=== PATIENT | female | born 1955 | race African-American/Black ===

== ENCOUNTER 2018-06-02 09:01 | Inpatient (IN) | payer OTHER ==
[2018-05-24 17:24] VITALS: BMI 35.2
[~2018-06-02 09:01] MED LIST: CEFAZOLIN 2 GM in DEXTROSE 5%-WATER - 50 ML IVPB ONE; CELECOXIB 200 MG CAPSULE PO ONE; ROPIVICAINE 0.2%/MORPH PF/KETOROLAC - 51ML DISP.SYRINGE IA ONE; TRANEXAMIC ACID 1000 MG/10 ML VIAL IVPUSH ONE
[2018-06-02] MEDS ORDERED: MIDAZOLAM HCL 2 MG/2 ML SINGLE DOSE VIAL ONE (10:17)
[2018-06-02] MEDS ORDERED: BUPIVACAINE LIPOSOME/PF (EXPAREL) 266 MG/20 ML VIAL ONE (10:17)
--- NOTE | 2018-06-02 10:22 | HP ---
History & Physical Update - History History: No Change - Physical Physical: No Change - Assessment Assessment: No Change - Plan Plan: No Change (no change since visit on 05/29/18)
[2018-06-02] MEDS ORDERED: ROCURONIUM BROMIDE 50 MG/5 ML VIAL ONE (10:59)
[2018-06-02] MEDS ORDERED: fentaNYL CITRATE 250 MCG/5 ML VIAL ONE (11:02)
[2018-06-02] MEDS ORDERED: VANCOMYCIN 1,000 MG VIAL (RESTRICTED TO ID ONLY) ONE (11:07)
[2018-06-02] MEDS ORDERED: DESFLURANE GAS 240 ML BOTTLE IH ONE (12:26)
[2018-06-02] MEDS ORDERED: HYDROmorphone HCL/PF 1 MG/ML AMP ONE ×2 (12:26→13:59)
[2018-06-02] MEDS ORDERED: MAGNESIUM HYDROX 2400MG/30ML ORAL SUSPENSION 30 ML CUP PO PRN (13:27)
[2018-06-02] MEDS ORDERED: ONDANSETRON 4 MG/2 ML VIAL IVPUSH PRN (13:27)
[2018-06-02] MEDS ORDERED: MAG HYDROX/AL HYDROX/SIMETH 30 ML UNIT-DOSE CUP PO PRN (13:27)
[2018-06-02] MEDS ORDERED: LACTATED RINGERS SOLUTION 1,000 ML IV SCH (13:30)
[2018-06-02] MEDS ORDERED: ALBUTEROL SO4 8 GM HFA INHALER IH PRN (13:32)
--- NOTE | 2018-06-02 13:59 | CONSULT ---
Consultation: REQUESTING PROVIDER: CONSULT REQUEST: We have been asked to medically evaluate this patient for ( specify). HISTORY OF PRESENT ILLNESS: REVIEW OF SYSTEMS: CONSTITUTIONAL: Absent: fever, chills, diaphoresis, generalized weakness, malaise, loss of appetite, weight change HEENT: Absent: rhinorrhea, nasal congestion, throat pain, throat swelling, difficulty swallowing, mouth swelling, ear pain, eye pain, visual changes CARDIOVASCULAR: Absent: chest pain, syncope, palpitations, irregular heart rate, lightheadedness , peripheral edema RESPIRATORY: Absent: cough, shortness of breath, dyspnea with exertion, orthopnea, wheezing, stridor, hemoptysis GASTROINTESTINAL: Absent: abdominal pain, abdominal distension, nausea, vomiting, diarrhea, constipation, melena, hematochezia GENITOURINARY: Absent: dysuria, frequency, urgency, hesitancy, hematuria, flank pain, genital pain MUSCULOSKELETAL: Absent: myalgia, arthralgia, joint swelling, back pain, neck pain SKIN: Absent: rash, itching, pallor HEMATOLOGIC/IMMUNOLOGIC: Absent: easy bleeding, easy bruising, lymphadenopathy, frequent infections ENDOCRINE: Absent: unexplained weight gain, unexplained weight loss, heat intolerance, cold intolerance NEUROLOGIC: Absent: headache, focal weakness or paresthesias, dizziness, unsteady gait, seizure, mental status changes, bladder or bowel incontinence PSYCHIATRIC: Absent: anxiety, depression, suicidal or homicidal ideation, hallucinations. PHYSICAL EXAMINATION Vital Signs - 24 hr 06/02/18 09:29 Temperature 98.6 F Pulse Rate 78 Respiratory 18 Rate Blood Pressure 119/82 GENERAL: Awake, alert, and fully oriented, in no acute distress. HEAD: Normal with no signs of trauma. EYES: Pupils equal, round and reactive to light, extraocular movements intact, sclera anicteric, conjunctiva clear. No lid lag. EARS, NOSE, THROAT: Ears normal, nares patent, oropharynx clear without exudates. Moist mucous membranes. NECK: Normal range of motion, supple without lymphadenopathy, JVD, or masses. LUNGS: Breath sounds equal, clear to auscultation bilaterally. No wheezes, and no crackles. No accessory muscle use. HEART: Regular rate and rhythm, normal S1 and S2 without murmur, rub or gallop. ABDOMEN: Soft, nontender, not distended, normoactive bowel sounds, no guarding, no rebound, no masses. No hepatomegaly or splenomegaly. MUSCULOSKELETAL: Normal range of motion at all joints. No bony deformities or tenderness. No CVA tenderness. UPPER EXTREMITIES: 2+ pulses, warm, well-perfused. No cyanosis. No clubbing. Cap refill <2 seconds. No peripheral edema. LOWER EXTREMITIES: 2+ pulses, warm, well-perfused. No calf tenderness. No peripheral edema. NEUROLOGICAL: Cranial nerves II-XII intact. Normal speech. Normal gait. PSYCHIATRIC: Cooperative. Good eye contact. Appropriate mood and affect. SKIN: Warm, dry, normal turgor, no rashes or lesions noted. Active Medications Generic Name Dose Route Start Last Admin Trade Name Freq PRN Reason Stop Dose Admin Al Hydroxide/Mg Hydroxide 30 ml 06/02/18 13:27 Mylanta Oral Suspension - PO Q4H PRN DYSPEPSIA Albuterol Sulfate puff 06/02/18 13:32 Ventolin Hfa Inhaler - IH ASDIR PRN WHEEZING Amlodipine Besylate 5 mg 06/03/18 10:00 Norvasc - PO DAILY [facility] Aspirin 81 mg 06/02/18 22:00 Ecotrin - PO BID KELLIE Cyclobenzaprine HCl 10 mg 06/03/18 10:00 Flexeril - PO DAILY KELLIE Cefazolin Sodium 2 gm/ 50 mls @ 200 mls/hr 06/02/18 19:30 Dextrose IVPB 06/03/18 02:14 Q8H-IV KELLIE Lactated Ringer's 1,000 mls @ 100 mls/hr 06/02/18 13:30 Lactated Ringers Solution IV 06/03/18 06:00 ASDIR KELLIE Magnesium Hydroxide 30 ml 06/02/18 13:27 Milk Of Magnesia - PO PRN PRN CONSTIPATION Multivitamins/Minerals/Vitamin C 1 tab 06/03/18 10:00 Tab-A-Vit - PO DAILY [facility] Non-Formulary Medication 1 each 06/03/18 10:00 Bictegrav/Emtricit/Tenofov Ala PO DAILY [facility] Non-Formulary Medication 20 mg 06/02/18 22:00 Pravastatin Sodium [Pravastatin Sodium] PO HS KELLIE Ondansetron HCl 4 mg 06/02/18 13:27 Zofran Injection IVPUSH Q6H PRN NAUSEA Pantoprazole Sodium 40 mg 06/03/18 10:00 Protonix - PO DAILY KELLIE Senna/Docusate Sodium tablet 06/02/18 22:00 Pericolace - PO BID [facility] ASSESSMENT/PLAN: Dispo: We will continue to follow the patient. Thank you for this consultative opportunity.
--- NOTE | 2018-06-02 14:41 | PN ---
Progress Note (short form) - Note Progress Note: S/P Revision Left TKA POD #0 - Pain control per anesthesia -DVT PPx: -Chemical: ASA 81 mg po BID x 6 weeks -Mechanical: SAVANAH's, SCD's -Incentive Spirometry. -PT/OT/Rehab, OOB. -TTWB Left LE in brace -f/u drain output -f/u am labs. -Care per medical hospitalist team. -Discharge planning: f/u [facility] [place] office station air traffic control specialist for appointment: -Will follow. Ken Nicole MD (Orthopaedic Surgery)
[2018-06-02] MEDS ORDERED: oxyCODONE HCL 5 MG TABLET PO PRN ×2 (14:43)
--- NOTE | 2018-06-02 16:17 | OP ---
Operative Note - Note: Operative Date: 06/02/18 Pre-Operative Diagnosis: failed left TKA Operation: Revision of left TKA Post-Operative Diagnosis: Same as Pre-op Surgeon: Ken Nicole Pharmacy Assistant: Enedina Paz Anesthesiologist/FILM MOUNTER: Nathaniel Whaley Anesthesia: General, Spinal Specimens Removed: old hardware, synovium Estimated Blood Loss (mls): 500 Fluid Volume Replaced (mls): 1,800 Operative Report Dictated: Yes
--- NOTE | 2018-06-02 16:18 | SURG ---
Surgery Wrecker Driver Note Wrecker Driver: Enedina Paz PA-C Date of Service: 06/02/18 Diagnosis: Failed left TKA Procedure: Revision Left TKA I was present for the operative procedure. For further detail, please refer to operative report. Visit type - Case Type Case Type: Scheduled - Emergency Emergency Visit: No - New patient This patient is new to me today: Yes Date on this admission: 06/02/18
[2018-06-02] MEDS ORDERED: ONDANSETRON 4 MG/2 ML VIAL ONE (16:27)
[2018-06-02] MEDS ORDERED: HYDROmorphone *PCA* 10MG/50ML DISP.SYRIN PCA SCH (17:00)
[2018-06-02] MEDS ORDERED: CEFAZOLIN 2 GM/D5W 2 GM/50 ML ML IVPB SCH (19:30)
[2018-06-02] MEDS ORDERED: PATIENT'S OWN MEDICATION (NON-FORMULARY) (Pravastatin Sodium [Pravastatin Sodium] 20 MG) PO SCH (22:00)
[2018-06-02] MEDS ORDERED: oxyCODONE HCL 10 MG SUSTAINED ACTING TABLET PO SCH (22:00)
[2018-06-02] MEDS: SENNOSIDES/DOCUSATE COMBO (SENNA PLUS) TABLET (UD) PO SCH (22:00)
[2018-06-02] MEDS: ASPIRIN COATED 81 MG TABLET.EC PO SCH (22:00)
[2018-06-02] MEDS: ATORVASTATIN CA 10 MG TABLET (FP) PO SCH (22:00)
[2018-06-02] MEDS: CEFAZOLIN 2 GM/D5W 2 GM/50 ML ML IVPB SCH (23:27)
[2018-06-03] MEDS ORDERED: VANCOMYCIN 1 GM in D5W (PRE-DOCKED) 1,000 MG/250 ML IVPB ONE
--- NOTE | 2018-06-03 08:31 | CONSULT ---
Consultation: REQUESTING PROVIDER: Dr. Ken Nicole CONSULT REQUEST: We have been asked to medically evaluate this patient post- operatively. HISTORY OF PRESENT ILLNESS: 62 year-old female with a PMH significant for HTN, asthma (current smoker), HIV , s/p revision total left knee on 06/02/18. REVIEW OF SYSTEMS: CONSTITUTIONAL: Absent: fever, chills, diaphoresis, generalized weakness, malaise, loss of appetite, weight change HEENT: Absent: rhinorrhea, nasal congestion, throat pain, throat swelling, difficulty swallowing, mouth swelling, ear pain, eye pain, visual changes CARDIOVASCULAR: Absent: chest pain, syncope, palpitations, irregular heart rate, lightheadedness , peripheral edema RESPIRATORY: Absent: cough, shortness of breath, dyspnea with exertion, orthopnea, wheezing, stridor, hemoptysis GASTROINTESTINAL: Absent: abdominal pain, abdominal distension, nausea, vomiting, diarrhea, constipation, melena, hematochezia GENITOURINARY: Absent: dysuria, frequency, urgency, hesitancy, hematuria, flank pain, genital pain MUSCULOSKELETAL: Absent: myalgia, arthralgia, joint swelling, back pain, neck pain SKIN: Absent: rash, itching, pallor HEMATOLOGIC/IMMUNOLOGIC: Absent: easy bleeding, easy bruising, lymphadenopathy, frequent infections ENDOCRINE: Absent: unexplained weight gain, unexplained weight loss, heat intolerance, cold intolerance NEUROLOGIC: Absent: headache, focal weakness or paresthesias, dizziness, unsteady gait, seizure, mental status changes, bladder or bowel incontinence PSYCHIATRIC: Absent: anxiety, depression, suicidal or homicidal ideation, hallucinations. PHYSICAL EXAMINATION Vital Signs - 24 hr 06/02/18 06/02/18 06/02/18 09:29 16:08 16:13 Temperature 98.6 F 98 F 98 F Pulse Rate 78 80 79 Respiratory 18 16 16 Rate Blood Pressure 119/82 124/83 129/87 O2 Sat by Pulse 98 98 Oximetry (%) 06/02/18 06/02/18 06/02/18 16:18 16:23 17:16 Temperature 98 F 98 F Pulse Rate 80 76 75 Respiratory 16 16 16 Rate Blood Pressure 124/83 126/81 132/94 O2 Sat by Pulse 99 99 Oximetry (%) 06/02/18 06/02/18 06/03/18 21:27 23:50 01:00 Temperature 98.9 F 98.9 F Pulse Rate 97 H 102 H Respiratory 18 18 Rate Blood Pressure 100/59 L 113/79 O2 Sat by Pulse 98 98 Oximetry (%) 06/03/18 06:00 Temperature 98.8 F Pulse Rate 95 H Respiratory 18 Rate Blood Pressure 136/69 O2 Sat by Pulse 97 Oximetry (%) GENERAL: Awake, alert, and fully oriented, in no acute distress. DENTIST ATTENDANT pump. HEAD: Normal with no signs of trauma. EYES: Pupils equal, round and reactive to light, extraocular movements intact, sclera anicteric, conjunctiva clear. No lid lag. EARS, NOSE, THROAT: Ears normal, nares patent, oropharynx clear without exudates. Moist mucous membranes. NECK: Normal range of motion, supple without lymphadenopathy, JVD, or masses. LUNGS: Breath sounds equal, clear to auscultation bilaterally. No wheezes, and no crackles. No accessory muscle use. HEART: Regular rate and rhythm, normal S1 and S2 without murmur, rub or gallop. ABDOMEN: Soft, nontender, not distended, normoactive bowel sounds, no guarding, no rebound, no masses. No hepatomegaly or splenomegaly. MUSCULOSKELETAL: Normal range of motion at all joints. No bony deformities or tenderness. No CVA tenderness. UPPER EXTREMITIES: 2+ pulses, warm, well-perfused. No cyanosis. No clubbing. Cap refill <2 seconds. No peripheral edema. LEFT LOWER EXTREMITY: leg immobilizer, SCDs; surgical wound not visualized; no drains NEUROLOGICAL: Cranial nerves II-XII intact. Normal speech. Gait not observed. ASSESSMENT/PLAN 62 year-old female with a PMH significant for HTN, asthma (current smoker), HIV , s/p revision total left knee on 06/02/18. --POD #1 --perioperative antibiotics complete --pain management per surgery; dilaudid DENTIST ATTENDANT; IV ketorolac PRN; cyclobenzeprine --ASA 81mg BID --protonix --bowel regimen --incentive spirometry --no drains, no abraham Hypertension --BP stable --continue amlodipine Asthma --stable --albuterol INH PRN HIV --continue home medication FEN Fluids: PO intake adequate Electrolytes: replete as indicated Nutrition: regular diet DVT prophylaxis: OOB, ambulation, SCDs, ASA 81mg BID Physical therapy Dispo: We will continue to follow the patient. Thank you for this consultative opportunity. Visit type - Emergency Visit Emergency Visit: No - New Patient This patient is new to me today: Yes Date on this admission: 06/03/18 - Critical Care Critical Care patient: No
[2018-06-03 08:59] LABS: HEMOGLOBIN 10.2 GM/dl (10.7-15.3); MCH 32.7 pg (25.7-33.7); MCHC 31.9 g/dl (32.0-36.0); MEAN CELL VOLUME 102.4 fl (80-96); MEAN PLT VOLUME 7.6 fl (7.5-11.1); PLATELET COUNT 202 K/MM3 (134-434); RBC 3.13 M/mm3 (3.60-5.2); RDW 13.6 % (11.6-15.6); WHITE BLOOD COUNT 8.3 K/mm3 (4.0-10.8)
--- NOTE | 2018-06-03 09:26 | OP ---
DATE OF OPERATION: 06/02/2018 SURGEON: Ken Nicole MD AIRLINE CAPTAIN: Enedina Paz PA-C PREOPERATIVE DIAGNOSIS: Loosening of previous revision total knee arthroplasty with stemmed cement tibia and rotating hinge (Nilam). POSTOPERATIVE DIAGNOSIS: Loosening of previous revision total knee arthroplasty with stemmed cement tibia and rotating hinge (Nilam). OPERATION PERFORMED: 1. Explant of femoral and tibial components. 2. Extensive debridement of soft tissue and bone. 3. Capsulectomy of the entire capsule as well as posterior capsule. 4. Revision left total knee arthroplasty with Camilla rotating hinge prosthesis. 5. Lateral release. 6. Complex wound closure 60 cm. ANESTHESIA: Failed spinal anesthesia, general anesthesia provided. ANTIBIOTICS GIVEN: Kefzol 2 g, vancomycin 1 g preoperatively. Vancomycin 1 g given at the time of release of the tourniquet at 120 minutes, and the tourniquet was then reapplied for another approximately 120 minutes, and repeat dose of antibiotics given at that time. OPERATION IN DETAIL: The patient was correctly identified, brought into the operating room. The left lower extremity was prepped and draped in the routine manner with Betadine scrub solution, wiped with alcohol, and DuraPrep was applied. Through the old original incision, the incision was extended 2 cm proximally and 2 cm distally. The dissection was taken first along the tibia, along the tibial tubercle, and then medially around the retinacular tissues. The quadriceps tendon was split longitudinally and a curved incision made around the patella. This enabled an impossible capsulization of the patella. It was re-opted for a tibial tubercle instead of a rectus snip or rectus turn-down type procedure. The tibial tubercle was made about 4 or 5 cm below the tibial tubercle. The bone bed was lifted, and the entire patella capsulized laterally giving easy access to the knee. With simple flexion of the knee, the entire femoral component was delivered into the wound. It was completely loose. The tibial component appeared to be solidly fixed. The tibial component was removed by placing a small oscillating saw in the space between the tibial baseplate and the bone bed, and a Gigli saw was utilized for the back portion to break the bonds. The tibial component was then removed with no difficulty. Once this had been performed, the cement on the tibial bone bed was all removed using intramedullary reaming. Reaming was to size 17, and the outrigger jigs were applied to this. We resected approximately 2 mm of bone off the tibia. This was based off the intramedullary device of the Camilla jig system. The femur required a lot of creative manipulation. We opted for a size small SM femoral component. The stem measured 155 x 23 mm, and the measurement of the seating of the femur to line the joint surface up with the meniscal scar, we utilized 1 cm judgement of space between the distal femoral bone bed and the actual superior aspect of the femoral component. The trialing of the components was exactly the above mentioned size. The tibia measured a size 2 and the stem measured size 17 x 155. A 1-cm block was placed on the undersurface of the tibial tray, this to approximate the actual joint line. A size 16 polyethylene gave, without the rotating hinge pin, an excellent degree of stability. It must be noted that all tissues of the femur were resected. We utilized a set of reverse curettes and using long pituitary rongeurs as well as osteotomes, the entire fibrous tissue of the endosteal canal was freed, removed, sent to the lab for histopathology and culture. Reaming was to size 23. The final definitive component measured small SM for [place] with 2 distal 1-cm build-up blocks, and the stem was seated with a solid press-fit fixation that was a scratch-width line to line fixation. The tibial component was a 17x 2 tray, a 110 length stem utilized. The cone to seat inside the tibia measured size B. All components were tested first before they were inserted. Once we were happy with the positioning, the entire soft tissue bed was lavaged repeatedly. A full debridement of the bone bed, soft tissue that was muscle and subcutaneous tissue and fat, and skin enabled a much improved situation with the entire synovium and capsule of the knee was resected because of [id number]-fqvvomork tissue due to particulation/appropriate debris that resulted in fibrosis and abnormality of these tissues. A lateral release was performed in order to improve patellar tracking. This measured about 1-1/2 inches. This was done from distal to proximal. Cementing was performed where the block was cemented directly onto the undersurface of the tibial tray. Once this had cured, the cementing of both components as outlined above was performed. Solid fixation achieved. It must be noted that prior to cementing, we drilled multiple holes into the bone bed both in the femur and tibia to facilitate cementing improved fixation method. Patellar tracking was normal. Range of movement of the knee was 0 to 120 degrees. Complete stability in the coronal and sagittal plane encountered. The tibial tubercle was then repositioned and held with 3 small fragment, that is 3.5 mm screws. These were lag effect screws. We used cancellous screws for better fixation into the posterior cortical bone. After thorough lavage and repeated lavages, the fascia and subcutaneous tissues were all closed in 2 separate layers that is muscle 1 Vicryl, subcutaneous tissue 1 and 2-0 Vicryl, and skin chau. No drains inserted. At 1 hour 20 minutes of the operation, the tourniquet was released. The hemorrhage was controlled well. This was washed out appropriately. No complications. The measurement of the size 16 polyethylene tray with a rotating hinge component was then inserted to finalize the case. This had been inserted prior to closure. A knee immobilizer was applied. OVERALL COMMENT: A complex case with massive osteolysis and bone loss involving the femur, less so the tibia. The outcome was excellent with the postoperative x-rays revealing solid fixation of the tibial tubercle osteotomy and normal anatomical alignment of the knee in both the coronal as well as sagittal plane. Kinematics of the knee will depend on the rotating hinge. The range of movement was 0 to 110 degrees. MD ERIN Hubbard/[id number]
[2018-06-03] MEDS ORDERED: PATIENT'S OWN MEDICATION (NON-FORMULARY) (Bictegrav/Emtricit/Tenofov Ala 1 EACH) PO SCH (10:00)
[2018-06-03] MEDS: CEFAZOLIN 2 GM/D5W 2 GM/50 ML ML IVPB SCH (10:38)
[2018-06-03] MEDS: SENNOSIDES/DOCUSATE COMBO (SENNA PLUS) TABLET (UD) PO SCH ×2 (10:39→21:56)
[2018-06-03] MEDS: CYCLOBENZAPRINE HCL 10 MG TABLET (FP) PO SCH (10:40)
[2018-06-03] MEDS: ASPIRIN COATED 81 MG TABLET.EC PO SCH ×2 (10:41→21:56)
[2018-06-03] MEDS: amLODIPine BESYLATE 5 MG TABLET (FP) PO SCH (10:41)
[2018-06-03] MEDS: PANTOPRAZOLE 40 MG TABLET (FP) PO SCH (10:41)
[2018-06-03] MEDS: MULTIVITAMINS (DAILY MVI) TABLET (FP) PO SCH (10:42)
[2018-06-03 10:50] LABS: ANION GAP 8 MMOL/L (8-16); BLOOD UREA NITROGEN 19 mg/dl (7-18); CALCIUM 8.8 mg/dl (8.5-10); CHLORIDE 109 mmol/L (98-107); CO2 27 mmol/L (21-32); GLUCOSE,RANDOM 113 mg/dl (74-106); POTASSIUM 4.7 mmol/L (3.5-5.1); SODIUM 144 mmol/L (136-145)
[2018-06-03] MEDS: KETOROLAC TROMETHAMINE 30 MG/1 ML VIAL IVPUSH PRN ×2 (15:55→16:53)
--- NOTE | 2018-06-03 18:20 | PN ---
Progress Note (short form) - Note Progress Note: POD#1 Doing well Sitting in the chair Did walk in the room and hallway Voice Normal Neck No swelling Wound Bandage serosang staining Neuro Hands symptomatically better All rest at baseline PLAN Mobilize Soft food Pain mx D/C planning home for Tuesday See in the office Keep wound dry
[2018-06-03] MEDS ORDERED: BISACODYL 10 MG SUPP.RECT RC PRN (18:47)
--- NOTE | 2018-06-03 18:51 | PN ---
Progress Note (short form) - Note Progress Note: POD#1 C/O mild incisional pain responds to Dilaudid and Toradol Vitals All stable Wound Bandage dry Limb No calf or subsartorian tenderness No neurovascular deficits ASSESS Doing well PLAN Pain MX PT mobilize in knee immobilizer Will arrange a hinged [place] for weekly graded increased ROM DVT prophylaxis Aspirin 81mg BID D/C planning ? rehab ? home Continue weight reduction
[2018-06-03] MEDS: POLYETHYLENE GLYCOL 3350 119 GM BTL PO SCH (21:56)
[2018-06-03] MEDS: ATORVASTATIN CA 10 MG TABLET (FP) PO SCH (21:56)
[2018-06-04 09:06] LABS: BASO % 0.4 % (0-2.0); EOS % 0.9 % (0-4.5); HEMATOCRIT 27.5 % (32.4-45.2); HEMOGLOBIN 8.9 GM/dl (10.7-15.3); LYMPH % 23.9 % (8-40); MCH 32.6 pg (25.7-33.7); MCHC 32.3 g/dl (32.0-36.0); MEAN CELL VOLUME 100.8 fl (80-96); MEAN PLT VOLUME 7.9 fl (7.5-11.1); MONO % 7.2 % (3.8-10.2); NEUT % 67.6 % (42.8-82.8); PLATELET COUNT 165 K/MM3 (134-434); RBC 2.73 M/mm3 (3.60-5.2); RDW 13.5 % (11.6-15.6); WHITE BLOOD COUNT 9.3 K/mm3 (4.0-10.8)
[2018-06-04 09:25] LABS: ALBUMIN 2.5 g/dl (3.4-5.0); ALK PHOS 85 U/L (45-117); ANION GAP 8 MMOL/L (8-16); BILIRUBIN,TOTAL 0.7 mg/dl (0.2-1); BLOOD UREA NITROGEN 19 mg/dl (7-18); CALCIUM 7.8 mg/dl (8.5-10); CHLORIDE 101 mmol/L (98-107); CO2 25 mmol/L (21-32); CREATININE 0.9 mg/dl (0.55-1.3); GLUCOSE,RANDOM 89 mg/dl (74-106); MAGNESIUM 1.9 mg/dL (1.8-2.4); POTASSIUM 4.2 mmol/L (3.5-5.1); SGOT/AST 28 U/L (15-37); SGPT/ALT 8 U/L (13-61); SODIUM 134 mmol/L (136-145); TOT PROT 5.8 g/dl (6.4-8.2)
--- NOTE | 2018-06-04 09:38 | PN ---
Physical Exam: SUBJECTIVE: Patient seen and examined,pt still c/o Left knee pain, reports no relief with REAL ESTATE ATTORNEY,+ nausea, denies cp, sob, palpitations,abdominal pain, vomiting , diarrhea or urinary symptoms. OBJECTIVE: Vital Signs Period Temp Pulse Resp BP Sys/Johnson Pulse Ox Last 24 Hr 97.8 F-100.6 F 67-109 16-19 97-130/52-76 93-97 GENERAL: The patient is awake, alert, and fully oriented, in no acute distress. HEAD: Normal with no signs of trauma. EYES: PERRL, extraocular movements intact, sclera anicteric, conjunctiva clear. No ptosis. ENT: Ears normal, nares patent, oropharynx clear without exudates, moist mucous membranes. NECK: Trachea midline, full range of motion, supple. LUNGS: Breath sounds equal, clear to auscultation bilaterally, no wheezes, no crackles, no accessory muscle use. HEART: Regular rate and rhythm, S1, S2 without murmur, rub or gallop. ABDOMEN: Soft, nontender, nondistended, normoactive bowel sounds, no guarding, no rebound, no hepatosplenomegaly, no masses. EXTREMITIES: 2+ pulses, warm, well-perfused, no edema, Left knee dsg and immobilizer in place NEUROLOGICAL: Cranial nerves II through XII grossly intact. Normal speech, gait not observed. PSYCH: Normal mood, normal affect. SKIN: Warm, dry, normal turgor, no rashes or lesions noted Laboratory Results - last 24 hr 06/02/18 06/03/18 06/03/18 17:00 07:40 07:40 WBC 8.0 8.3 RBC 3.13 L Hgb 10.2 L Hct 32.0 L MCV 102.4 H MCH 32.7 MCHC 31.9 L RDW 13.6 Plt Count 202 MPV 7.6 Absolute Neuts (auto) Absolute Lymphs (auto) 0.5 L Neutrophils % Lymphocytes % Monocytes % Eosinophils % Basophils % Lymphocytes 6 Nucleated RBCs TNP Sodium 144 Potassium 4.7 Chloride 109 H Carbon Dioxide 27 Anion Gap 8 BUN 19 H Creatinine 1.0 Creat Clearance w eGFR 56.37 Random Glucose 113 H Calcium 8.8 Magnesium Total Bilirubin AST ALT Alkaline Phosphatase Total Protein Albumin Absolute CD3 Count 298 L % CD3+ Lymphocytes 59.6 Absolute CD4 Chase 131 L % CD4+ Lymphocyte 26.1 L CD4/CD8 Ratio 0.81 L % CD8+ Lymphocyte 32.3 Absolute CD8 Count 162 06/04/18 06/04/18 06:00 06:30 WBC 9.3 RBC 2.73 L Hgb 8.9 L Hct 27.5 L MCV 100.8 H MCH 32.6 MCHC 32.3 RDW 13.5 Plt Count 165 MPV 7.9 Absolute Neuts (auto) 6.3 Absolute Lymphs (auto) Neutrophils % 67.6 Lymphocytes % 23.9 Monocytes % 7.2 Eosinophils % 0.9 Basophils % 0.4 Lymphocytes Nucleated RBCs Sodium 134 L Potassium 4.2 Chloride 101 Carbon Dioxide 25 Anion Gap 8 BUN 19 H Creatinine 0.9 Creat Clearance w eGFR > 60 Random Glucose 89 Calcium 7.8 L Magnesium 1.9 Total Bilirubin 0.7 AST 28 ALT 8 L Alkaline Phosphatase 85 Total Protein 5.8 L Albumin 2.5 L Absolute CD3 Count % CD3+ Lymphocytes Absolute CD4 Chase % CD4+ Lymphocyte CD4/CD8 Ratio % CD8+ Lymphocyte Absolute CD8 Count Active Medications Generic Name Dose Route Start Last Admin Trade Name Freq PRN Reason Stop Dose Admin Al Hydroxide/Mg Hydroxide 30 ml 06/02/18 13:27 06/02/18 23:50 Mylanta Oral Suspension - PO 30 ml Q4H PRN Administration DYSPEPSIA Albuterol Sulfate 2 puff 06/02/18 13:32 Ventolin Hfa Inhaler - IH Q6H PRN WHEEZING Amlodipine Besylate 5 mg 06/03/18 10:00 06/03/18 10:41 Norvasc - PO 5 mg DAILY KELLIE Administration Aspirin 81 mg 06/02/18 22:00 06/03/18 21:56 Ecotrin - PO 81 mg BID KELLIE Administration Atorvastatin Calcium 10 mg 06/02/18 22:00 06/03/18 21:56 Lipitor - PO 10 mg HS KELLIE Administration Bisacodyl 10 mg 06/03/18 18:47 Dulcolax Suppository - RC DAILY PRN CONSTIPATION Cyclobenzaprine HCl 10 mg 06/03/18 10:00 06/03/18 10:40 Flexeril - PO 10 mg DAILY KELLIE Administration Hydromorphone HCl 10 mg 06/02/18 17:00 06/03/18 16:46 Dilaudid Cotton Cleaner - REAL ESTATE ATTORNEY 06/05/18 16:59 10 mg REAL ESTATE ATTORNEY KELLIE Administration Protocol Multivitamins/Minerals/Vitamin C 1 tab 06/03/18 10:00 06/03/18 10:42 Tab-A-Vit - PO 1 tab DAILY KELLIE Administration Non-Formulary Medication 1 each 06/03/18 10:00 Bictegrav/Emtricit/Tenofov Ala PO DAILY KELLIE Ondansetron HCl 4 mg 06/02/18 13:27 Zofran Injection IVPUSH Q6H PRN NAUSEA Pantoprazole Sodium 40 mg 06/03/18 10:00 06/03/18 10:41 Protonix - PO 40 mg DAILY KELLIE Administration Polyethylene Glycol 17 gm 06/03/18 22:00 06/03/18 21:56 Miralax (For Daily Use) - PO 17 gm BID KELLIE Administration Senna/Docusate Sodium 2 tablet 06/02/18 22:00 06/03/18 21:56 Pericolace - PO 2 tablet BID KELLIE Administration Left knee X'ray - reviewed, ASSESSMENT/PLAN: 62 year-old female with a PMH significant for HTN, asthma (current smoker), HIV , s/p revision total left knee on 06/02/18. -POD #2 - management per sx -rec a hinged [place] for weekly graded increased ROM -DVT prophylaxis Aspirin 81mg BID - reports Dilaudid REAL ESTATE ATTORNEY not relieving the pain - will switch to home dose Oxycontin, will cont on Flexeril -bowel regimen - encouraged to use incentive spirometry - PT - low grade fever over night, no leukocytosis - s/p post-op abx * Anemia - likely acute blood loss anemia from sx - will check Fe studies - will start on Fe pills -stool OB *Hypertension -BP stable -continue amlodipine *Asthma-stable -albuterol INH PRN *HIV -continue home medication * Mild hyponatremia - NA 144>134 - will encourage PO fluid and and f/u on Equal Employment Opportunity Officer *FEN Fluids: PO intake adequate Electrolytes: replete as indicated Nutrition: regular diet DVT prophylaxis: OOB, ambulation, SCDs, ASA 81mg BID * GI Prophylaxis- PPI Dispo: We will continue to follow the patient. Thank you for this consultative opportunity. Visit type - Emergency Visit Emergency Visit: Yes ED Registration Date: 06/02/18 Care time: The patient presented to the Emergency Department on the above date and was hospitalized for further evaluation of their emergent condition. - New Patient This patient is new to me today: Yes Date on this admission: 06/11/18 - Critical Care Critical Care patient: No - Discharge Referral Referred to [facility] Med [facility] No
[2018-06-04] MEDS: ASPIRIN COATED 81 MG TABLET.EC PO SCH ×2 (09:40→21:28)
[2018-06-04] MEDS: CYCLOBENZAPRINE HCL 10 MG TABLET (FP) PO SCH (09:41)
[2018-06-04] MEDS: POLYETHYLENE GLYCOL 3350 119 GM BTL PO SCH ×2 (09:42→21:29)
[2018-06-04] MEDS: amLODIPine BESYLATE 5 MG TABLET (FP) PO SCH (09:42)
[2018-06-04] MEDS: SENNOSIDES/DOCUSATE COMBO (SENNA PLUS) TABLET (UD) PO SCH ×2 (09:42→21:28)
[2018-06-04] MEDS: MULTIVITAMINS (DAILY MVI) TABLET (FP) PO SCH (09:42)
[2018-06-04] MEDS: PANTOPRAZOLE 40 MG TABLET (FP) PO SCH (09:42)
[2018-06-04] MEDS ORDERED: oxyCODONE HCL 5 MG TABLET PO SCH (10:00)
[2018-06-04] MEDS: FERROUS SO4 325 MG TABLET (FP) PO SCH ×2 (13:05→21:28)
[2018-06-04] MEDS: oxyCODONE HCL 5 MG TABLET PO SCH ×4 (15:30→21:29)
[2018-06-04] MEDS ORDERED: ACETAMINOPHEN 500 MG TABLET (FP) PO ONE (20:39)
[2018-06-04] MEDS: ATORVASTATIN CA 10 MG TABLET (FP) PO SCH (21:28)
[2018-06-04] MEDS ORDERED: ACETAMINOPHEN 650 MG/20.3 ML ORAL SOLUTION (CUPS) PO PRN (21:50)
[2018-06-04] MEDS ORDERED: MELATONIN 5 MG TABLETS PO ONE (21:52)
[2018-06-05] MEDS: oxyCODONE HCL 5 MG TABLET PO SCH ×4 (04:11→22:20)
--- NOTE | 2018-06-05 07:19 | PN ---
Progress Note (short form) - Note Progress Note: POD #3 s/p Revision of left TKA Patient's RN states patient c/o a lot of left knee pain not controlled by current medications. 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 Also, per RN, patient brought her own narcotics from home and was administering in conjunction with what's been ordered. Patient not really participating in PT sessions. She is wearing her knee brace as instructed. Denies n/v/f/c, CP, palpitations, SOB or GRACE. Last Vital Signs Temp Pulse Resp BP Pulse Ox 98.5 F 85 20 100/53 L 99 03/11/19 06:00 03/11/19 06:00 /02/13 06:00 // 06:00 // 06:30 PE Gen: NAD LE: RLE unremarkable. LLE dressing c/d/i. Knee immobilizer in place. Ice pack. Plantar/Dorsi flex/extension 4/5. +DP bilat. Warm. No calf tenderness. No neurovascular deficits Problem List - Problems (1) Left knee DJD Assessment/Plan: POD #3 s/p Revision of Left TKA Pain Management DVT PPX via ASA 81mg PO BID x6 weeks & TEDs/SCDs bilat Incentive Spirometer OOB with PT WBAT LLE Hinged Ady for weekly graded increased ROM Patient wishes to go to REHAB Service Captain aware f/u AM LABS Dr. Nicole made aware and agrees with above plan Code(s): M17.12 - UNILATERAL PRIMARY OSTEOARTHRITIS, LEFT KNEE
[2018-06-05 08:06] LABS: SERUM IRON SATURATION 15 % (15-55); TOTAL IRON BINDING CAPACITY 230 ug/dL (250-450); UIBC 196 ug/dL (118-369)
[2018-06-05 08:43] LABS: BASO % 0.1 % (0-2.0); EOS % 1.8 % (0-4.5); HEMATOCRIT 26.4 % (32.4-45.2); HEMOGLOBIN 8.5 GM/dl (10.7-15.3); MCH 32.4 pg (25.7-33.7); MEAN CELL VOLUME 101.2 fl (80-96); MEAN PLT VOLUME 7.8 fl (7.5-11.1); MONO % 6.6 % (3.8-10.2); NEUT % 71.5 % (42.8-82.8); PLATELET COUNT 168 K/MM3 (134-434); RBC 2.61 M/mm3 (3.60-5.2); RDW 13.3 % (11.6-15.6); WHITE BLOOD COUNT 8.1 K/mm3 (4.0-10.8)
[2018-06-05 08:52] LABS: ANION GAP 6 MMOL/L (8-16); BLOOD UREA NITROGEN 15 mg/dl (7-18); CHLORIDE 101 mmol/L (98-107); CO2 28 mmol/L (21-32); CREATININE 0.9 mg/dl (0.55-1.3); GLUCOSE,RANDOM 105 mg/dl (74-106); POTASSIUM 5.2 mmol/L (3.5-5.1); SODIUM 135 mmol/L (136-145)
[2018-06-05] MEDS: ASPIRIN COATED 81 MG TABLET.EC PO SCH ×2 (09:28→22:20)
[2018-06-05] MEDS: FERROUS SO4 325 MG TABLET (FP) PO SCH ×2 (09:28→22:20)
[2018-06-05] MEDS: SENNOSIDES/DOCUSATE COMBO (SENNA PLUS) TABLET (UD) PO SCH (09:29)
[2018-06-05] MEDS: MULTIVITAMINS (DAILY MVI) TABLET (FP) PO SCH (09:29)
[2018-06-05] MEDS: CYCLOBENZAPRINE HCL 10 MG TABLET (FP) PO SCH (09:29)
[2018-06-05] MEDS: PANTOPRAZOLE 40 MG TABLET (FP) PO SCH (09:29)
[2018-06-05] MEDS: amLODIPine BESYLATE 5 MG TABLET (FP) PO SCH (09:29)
[2018-06-05] MEDS: POLYETHYLENE GLYCOL 3350 119 GM BTL PO SCH (09:29)
[2018-06-05 09:34] LABS: HBsAG SCREEN NEGATIVE
--- NOTE | 2018-06-05 10:06 | PN ---
Physical Exam: SUBJECTIVE: Patient seen and examined. States she is ready to go to rehab. OBJECTIVE: Vital Signs Period Temp Pulse Resp BP Sys/Johnson Pulse Ox Last 24 Hr 98.1 F-98.9 F 79-100 16-20 89-130/53-78 95-99 GENERAL: Awake, alert, and fully oriented, in no acute distress. LUNGS: Breath sounds equal, clear to auscultation bilaterally. No wheezes, and no crackles. No accessory muscle use. HEART: Regular rate and rhythm, normal S1 and S2 ABDOMEN: Soft, nontender, not distended, normoactive bowel sounds UPPER EXTREMITIES: 2+ pulses, warm, well-perfused. No cyanosis. No clubbing. Cap refill <2 seconds. No peripheral edema. LEFT LOWER EXTREMITY: leg immobilizer, SCDs; surgical wound not visualized; no drains NEUROLOGICAL: Cranial nerves II-XII intact. Normal speech. Gait not observed. Laboratory Results - last 24 hr 06/03/18 06/04/18 06/04/18 07:40 06:30 06:30 WBC RBC Hgb Hct MCV MCH MCHC RDW Plt Count MPV Absolute Neuts (auto) Neutrophils % Lymphocytes % Monocytes % Eosinophils % Basophils % Iron 34 TIBC 230 L Iron Saturation 15 Ferritin 106.4 Vitamin B12 303 Serum Folate 10 Hep Bs Antigen Negative 06/05/18 07:10 WBC 8.1 RBC 2.61 L Hgb 8.5 L Hct 26.4 L MCV 101.2 H MCH 32.4 MCHC 32.0 RDW 13.3 Plt Count 168 MPV 7.8 Absolute Neuts (auto) 5.9 Neutrophils % 71.5 Lymphocytes % 20.0 Monocytes % 6.6 Eosinophils % 1.8 Basophils % 0.1 Iron TIBC Iron Saturation Ferritin Vitamin B12 Serum Folate Hep Bs Antigen Active Medications Generic Name Dose Route Start Last Admin Trade Name Freq PRN Reason Stop Dose Admin Acetaminophen 650 mg 06/04/18 21:50 Tylenol Oral Solution - PO Q6H PRN PAIN LEVEL 6-10 Al Hydroxide/Mg Hydroxide 30 ml 06/02/18 13:27 06/02/18 23:50 Mylanta Oral Suspension - PO 30 ml Q4H PRN Administration DYSPEPSIA Albuterol Sulfate 2 puff 06/02/18 13:32 Ventolin Hfa Inhaler - IH Q6H PRN WHEEZING Amlodipine Besylate 5 mg 06/03/18 10:00 06/05/18 09:29 Norvasc - PO 5 mg DAILY KELLIE Administration Aspirin 81 mg 06/02/18 22:00 06/05/18 09:28 Ecotrin - PO 81 mg BID KELLIE Administration Atorvastatin Calcium 10 mg 06/02/18 22:00 06/04/18 21:28 Lipitor - PO 10 mg HS KELLIE Administration Bisacodyl 10 mg 06/03/18 18:47 Dulcolax Suppository - RC DAILY PRN CONSTIPATION Cyclobenzaprine HCl 10 mg 06/03/18 10:00 06/05/18 09:29 Flexeril - PO 10 mg DAILY KELLIE Administration Ferrous Sulfate 325 mg 06/04/18 10:00 06/05/18 09:28 Feosol - PO 325 mg BID KELLIE Administration Multivitamins/Minerals/Vitamin C 1 tab 06/03/18 10:00 06/05/18 09:29 Tab-A-Vit - PO 1 tab DAILY KELLIE Administration Non-Formulary Medication 1 each 06/03/18 10:00 Bictegrav/Emtricit/Tenofov Ala PO DAILY [facility] Ondansetron HCl 4 mg 06/02/18 13:27 Zofran Injection IVPUSH Q6H PRN NAUSEA Oxycodone HCl 30 mg 06/04/18 10:30 06/05/18 09:30 Roxicodone - PO 30 mg Q6H KELLIE Administration Pantoprazole Sodium 40 mg 06/03/18 10:00 06/05/18 09:29 Protonix - PO 40 mg DAILY KELLIE Administration Polyethylene Glycol 17 gm 06/03/18 22:00 06/05/18 09:29 Miralax (For Daily Use) - PO 17 gm BID KELLIE Administration Senna/Docusate Sodium 2 tablet 06/02/18 22:00 06/05/18 09:29 Pericolace - PO 2 tablet BID [facility] Administration ASSESSMENT/PLAN: 62 year-old female with a PMH significant for HTN, asthma (current smoker), HIV , s/p revision total left knee on 06/02/18. --POD #3 --perioperative antibiotics complete --pain management has been a challenge; patient observed by nursing staff taking unprescribed valium which she brought into the hospital; recovered from her belongings were flexeril 10mg x 25 tabs and valium 10mg x 10 tabs; dilaudid RACE RELATIONS ADVISER is off; on PO oxycodone and flexeril --ASA 81mg BID --protonix --bowel regimen: has not had BM and K mildly elevated; give dose relistor --incentive spirometry --no drains, no abraham Hypertension --BP stable --continue amlodipine Asthma --stable --albuterol INH PRN HIV --continue home medication FEN Fluids: PO intake adequate Electrolytes: replete as indicated Nutrition: regular diet DVT prophylaxis: OOB, ambulation, SCDs, ASA 81mg BID x 6 weeks Physical therapy Dispo: We will continue to follow the patient. Thank you for this consultative opportunity. Visit type - Emergency Visit Emergency Visit: No - New Patient This patient is new to me today: No - Critical Care Critical Care patient: No
[2018-06-05] MEDS: Methylnaltrexone Bromide 12 MG/0.6 ML KIT SQ SCH (11:53)
[2018-06-05] MEDS: ATORVASTATIN CA 10 MG TABLET (FP) PO SCH (22:20)
[2018-06-06] MEDS: oxyCODONE HCL 5 MG TABLET PO SCH ×4 (04:30→22:26)
--- NOTE | 2018-06-06 07:12 | DS ---
Physical Exam: SUBJECTIVE: Patient seen and examined. Still c/o Left Knee pain but improved compared when I saw patient. Per RN she is actually getting OOB and ambulating with PT. She is wearing her knee brace as instructed. Denies n/v/f/c , CP, palpitations, SOB or GRACE. OBJECTIVE: Last Vital Signs Temp Pulse Resp BP Pulse Ox 99.0 F 76 18 98/63 100 06/06/18 06:00 06/06/18 06:00 06/06/18 06:00 06/06/18 06:00 06/06/18 06:00 PE Gen: NAD LE: RLE unremarkable. LLE dressing c/d/i. Knee immobilizer in place. Ice pack. Plantar/Dorsi flex/extension 4/5. +DP bilat. Warm. No calf tenderness. No neurovascular deficits LABS CBC,CMP WBC 8.1 K/mm3 (4.0-10.8) 06/05/18 07:10 RBC 2.61 M/mm3 (3.60-5.2) L 06/05/18 07:10 Hgb 8.5 GM/dl (10.7-15.3) L 06/05/18 07:10 Hct 26.4 % (32.4-45.2) L 06/05/18 07:10 MCV 101.2 fl (80-96) H 06/05/18 07:10 MCH 32.4 pg (25.7-33.7) 06/05/18 07:10 MCHC 32.0 g/dl (32.0-36.0) 06/05/18 07:10 RDW 13.3 % (11.6-15.6) 06/05/18 07:10 Plt Count 168 K/MM3 (134-434) 06/05/18 07:10 MPV 7.8 fl (7.5-11.1) 06/05/18 07:10 Absolute Neuts (auto) 5.9 K/mm3 06/05/18 07:10 Absolute Lymphs (auto) 0.5 x10E3/uL (0.7-3.1) L 06/02/18 17:00 Neutrophils % 71.5 % (42.8-82.8) 06/05/18 07:10 Lymphocytes % 20.0 % (8-40) 06/05/18 07:10 Monocytes % 6.6 % (3.8-10.2) 06/05/18 07:10 Eosinophils % 1.8 % (0-4.5) 06/05/18 07:10 Basophils % 0.1 % (0-2.0) 06/05/18 07:10 Lymphocytes 6 % (Not Estab.) 06/02/18 17:00 Nucleated RBCs TNP 06/02/18 17:00 Sodium 135 mmol/L (136-145) L 06/05/18 07:10 Potassium 5.2 mmol/L (3.5-5.1) H 06/05/18 07:10 Chloride 101 mmol/L (98-107) 06/05/18 07:10 Carbon Dioxide 28 mmol/L (21-32) 06/05/18 07:10 Anion Gap 6 MMOL/L (8-16) L 06/05/18 07:10 BUN 15 mg/dl (7-18) 06/05/18 07:10 Creatinine 0.9 mg/dl (0.55-1.3) 06/05/18 07:10 Creat Clearance w eGFR > 60 (>60) 06/05/18 07:10 Random Glucose 105 mg/dl (74-106) 06/05/18 07:10 Calcium 8.0 mg/dl (8.5-10) L 06/05/18 07:10 Magnesium 1.9 mg/dL (1.8-2.4) 06/04/18 06:00 Iron 34 ug/dL (27-139) 06/04/18 06:30 TIBC 230 ug/dL (250-450) L 06/04/18 06:30 Iron Saturation 15 % (15-55) 06/04/18 06:30 Ferritin 106.4 ng/ml (8-388) 06/04/18 06:30 Total Bilirubin 0.7 mg/dl (0.2-1) 06/04/18 06:00 AST 28 U/L (15-37) 06/04/18 06:00 ALT 8 U/L (13-61) L 06/04/18 06:00 Alkaline Phosphatase 85 U/L (45-117) 06/04/18 06:00 Total Protein 5.8 g/dl (6.4-8.2) L 06/04/18 06:00 Albumin 2.5 g/dl (3.4-5.0) L 06/04/18 06:00 Vitamin B12 303 pg/ml (193-986) 06/04/18 06:30 Serum Folate 10 ng/mL (3.1-17.5) 06/04/18 06:30 HOSPITAL COURSE: Date of Admission:06/02/18 Date of Discharge: 06/06/18 62 yo female was admitted to the Med-Surg Unit after an elective repair of their LEFT knee DJD. Now, POD #4 s/p Left Total Knee Arthroplasty. Pain managed via narcotic and non-narcotic oral and IV approach. Patient was very reluctant to ambulate with PT for the first few days but finally started to move POD #3. An xray was obtained and confirmed hardware placement at LEFT KNEE, no fractures or dislocations. Genevieve-operative IV ABX were administered. DVT prophylaxis was achieved with SCDs and early ambulation. The patient ambulated with Physical Therapy and recommend REHAB upon discharge. Narcotic scripts and or muscle relaxants were checked with [place] TELEVISION CABINET FINISHER prior to esrcibe. The pateint apolonia cont with DVT PPX via ASA 81mg PO BID x6 weeks. The discharge instructions and an oral pain management plan were reviewed with the patient. All questions answered. Above plan discussed with Dr. Nicole and agreed. Minutes to complete discharge: 35 Visit type - Case Type Case Type: Scheduled - New patient This patient is new to me today: Yes Date on this admission: 06/06/18
[2018-06-06] MEDS ORDERED: PT OWN MED DRAWER 7, Y5N ONE (09:05)
--- NOTE | 2018-06-06 09:44 | DS ---
"Physical Exam: SUBJECTIVE: Patient seen and examined OBJECTIVE: Vital Signs Period Temp Pulse Resp BP Sys/Johnson Pulse Ox Last 24 Hr 98.2 F-99.2 F 76-97 18-19 96-115/57-69 96-100 PHYSICAL EXAM GENERAL: The patient is awake, alert, and fully oriented, in no acute distress. HEAD: Normal with no signs of trauma. EYES: PERRL, extraocular movements intact, sclera anicteric, conjunctiva clear. ENT: Ears normal, nares patent, oropharynx clear without exudates, moist mucous membranes. NECK: Trachea midline, full range of motion, supple. LUNGS: Breath sounds equal, clear to auscultation bilaterally, no wheezes, no crackles, no accessory muscle use. HEART: Regular rate and rhythm, S1, S2 without murmur, rub or gallop. ABDOMEN: Soft, nontender, nondistended, normoactive bowel sounds, no guarding, no rebound, no hepatosplenomegaly, no masses. EXTREMITIES: 2+ pulses, warm, well-perfused, no edema. NEUROLOGICAL: Cranial nerves II through XII grossly intact. Normal speech, gait not observed. PSYCH: Normal mood, normal affect. SKIN: Warm, dry, normal turgor, no rashes or lesions noted. LABS Laboratory Results - last 24 hr 06/05/18 06/05/18 07:10 07:54 Sodium 135 L Potassium 5.2 H Chloride 101 Carbon Dioxide 28 Anion Gap 6 L BUN 15 Creatinine 0.9 Creat Clearance w eGFR > 60 Random Glucose 105 Calcium 8.0 L Hep C Ab Diagnostic 0.1 HOSPITAL COURSE: Date of Admission:06/02/18 Date of Discharge: 06/06/18 Minutes to complete discharge: 35 Discharge Summary Reason For Visit: REVISION OF LEFT TOTAL KNEE Current Active Problems Left knee DJD (Acute) Condition: Stable - Instructions Diet, Activity, Other Instructions: Dr. Nicole Discharge Instructions for Knee Replacement Post Operative Instructions Physical activity Physical Therapist will come to your home for the first 5 days. You will be set up with outpatient PT at your first post-operative visit. Use assistive devices for ambulation at all times. Weight bearing as tolerated on your surgical side. Do not put pillow under knee. May put pillow under heel. Wound care Leave your surgical dressing in place. Do not change the dressing until seen by your surgeon in the office. No baths or showers. Do not submerge your incision. Do not apply any ointments or lotions to your incision. Please call the office if your dressing is soiled/dirty or is falling off. Apply Graduated Compression Stockings (TEDS) to both lower extremities - remove daily for hygiene ONLY. Diet There are no dietary restrictions. Eat healthy, high-fiber foods. Drink 6 to 8 glasses of liquid each day. This will assist in keeping your bowels are regular. Pain management Any pain prescription medication ordered should be taken as prescribed for moderate to severe pain. Do not take additional Tylenol while taking Percocet. Take Aspirin 81 mg two times a day for a total of 6 weeks to prevent blood clots. Call Dr. Nicole for any of the following: Severe pain not relieved by medication Fever of 101 or higher Excessive bleeding or drainage on dressing Inability to urinate If you experience chest pain or shortness of breath, please seek emergency care immediately. Please call the office at to confirm your post-op appointment for the week following surgery. [place] Prescription Monitoring Program report was requested by: Enedina Kidd | Reference #: [id number] Others' Prescriptions Patient Name: Linda Sawyer Date: 1955 Address: [facility] [place] [address] [address] [place] [address] Sex: Female Rx Dispensed Drug Quantity Days Supply Prescriber Name 05/27/2018 diazepam 10 mg tablet 30 30 Ken Nicole MS, MD 05/09/2018 oxycodone hcl 30 mg tablet 120 30 Ken Nicole MS, MD Disposition: RESIDENTIAL FACILITY - Home Medications Comprehensive Discharge Medication List: Ambulatory Orders Amlodipine Besylate 5 mg PO DAILY 03/31/18 Bictegrav/Emtricit/Tenofov Ala [Biktarvy 50-200-25 mg Tablet] 1 each PO DAILY Cyclobenzaprine HCl 10 mg PO DAILY 03/31/18 Oxycodone HCl 30 mg PO Q6H 03/31/18 Pravastatin Sodium 20 mg PO HS 03/31/18 Zolpidem Tartrate [Ambien] 10 mg PO HS 03/31/18 Albuterol Sulfate [Proair Hfa] 8.5 gm IH ASDIR PRN 06/02/18 Aspirin Coated [Ecotrin -] 81 mg PO BID #90 tablet.ec 06/06/18 This patient is new to me today: No Emergency Visit: No Critical Care patient: No"
[2018-06-06] MEDS: PANTOPRAZOLE 40 MG TABLET (FP) PO SCH (09:47)
[2018-06-06] MEDS: MULTIVITAMINS (DAILY MVI) TABLET (FP) PO SCH (09:47)
[2018-06-06] MEDS: FERROUS SO4 325 MG TABLET (FP) PO SCH ×2 (09:47→21:01)
[2018-06-06] MEDS: ASPIRIN COATED 81 MG TABLET.EC PO SCH ×2 (09:48→21:01)
[2018-06-06] MEDS: CYCLOBENZAPRINE HCL 10 MG TABLET (FP) PO SCH (09:48)
[2018-06-06] MEDS: amLODIPine BESYLATE 5 MG TABLET (FP) PO SCH (09:48)
[2018-06-06] MEDS: Methylnaltrexone Bromide 12 MG/0.6 ML KIT SQ SCH (09:48)
[2018-06-06] MEDS: ATORVASTATIN CA 10 MG TABLET (FP) PO SCH (21:01)
[2018-06-07] MEDS: oxyCODONE HCL 5 MG TABLET PO SCH ×3 (04:36→15:57)
[2018-06-07] MEDS ORDERED: PT OWN MED DRAWER 7, Y5N ONE (09:24)
[2018-06-07] MEDS: FERROUS SO4 325 MG TABLET (FP) PO SCH (09:33)
[2018-06-07] MEDS: CYCLOBENZAPRINE HCL 10 MG TABLET (FP) PO SCH (09:33)
[2018-06-07] MEDS: MULTIVITAMINS (DAILY MVI) TABLET (FP) PO SCH (09:34)
[2018-06-07] MEDS: ASPIRIN COATED 81 MG TABLET.EC PO SCH (09:34)
[2018-06-07] MEDS: PANTOPRAZOLE 40 MG TABLET (FP) PO SCH (09:34)
[2018-06-07] MEDS: Methylnaltrexone Bromide 12 MG/0.6 ML KIT SQ SCH (09:37)
[2018-06-07] MEDS: amLODIPine BESYLATE 5 MG TABLET (FP) PO SCH (09:37)
[2018-06-07] MEDS ORDERED: SODIUM CHLORIDE 500 ML IV STA (10:32)
--- NOTE | 2018-06-07 16:16 | PATH ---
Surgical Pathology Report Patient Name: HENRY EDOUARD Med. Rec. #: [id number] /Age/Gender: 1955 (Age: 62) / F Account: [id number] Location: [facility] MED-SURG Taken: 06/02/2018 Received: 06/05/2018 Reported: 06/07/2018 Physicians: Ken Nicole M.D. Specimen(s) Received A: SYNOVIUM LEFT KNEE B: FEMORAL MEDULLARY CONTENTS LEFT KNEE C: LEFT KNEE EXPLANTS Clinical History Loosening of osteolysis Final Diagnosis A. KNEE, LEFT, SYNOVIUM, REVISION OF TOTAL KNEE REPLACEMENT: FIBROSYNOVIAL TISSUE WITH MARKED HISTIOCYTIC AND GIANT CELL INFILTRATE FOCALLY CONTAINING BROWN-BLACK REFRACTILE DEBRIS, SCATTERED GRANULAR POLARIZABLE MATERIAL IMBEDED IN DENSE FIBROSIS, AND FOCI OF NECROSIS CONSISTENT WITH CLINICAL IMPRESSION OF OSTEOLYSIS. B. KNEE, LEFT, FEMORAL MEDULLARY CONTENTS, REVISION OF TOTAL KNEE REPLACEMENT: FIBROSYNOVIAL TISSUE WITH MARKED HISTIOCYTIC AND GIANT CELL INFILTRATE FOCALLY CONTAINING BROWN-BLACK REFRACTILE DEBRIS, SCATTERED GRANULAR POLARIZABLE MATERIAL IMBEDED IN DENSE FIBROSIS, AND FOCI OF NECROSIS CONSISTENT WITH CLINICAL IMPRESSION OF OSTEOLYSIS. C. KNEE EXPLANTS, LEFT, REVISION OF TOTAL KNEE REPLACEMENT: SURGICAL HARDWARE (KNEE PROSTHESIS). MACROSCOPIC DIAGNOSIS. Electronically Signed Lila Urban M.D. Gross Description A. Received in formalin labeled "synovium left knee," is a 10.0 x 8.0 x 3.0 cm aggregate of multiple lucia, irregular portions of synovial tissue. Aeronautical Engineering Technologist sections are submitted in one cassette. B. Received in formalin labeled "femoral medullary contents left knee," is a 9.0 x 7.0 x 1.8 cm aggregate of lucia fibrous tissue fragments. A product support sales representative portion is submitted in one cassette. C. Received fresh labeled "left knee explants", is a 7.0 x 4.0 x 1.8 cm white, plastic foreign body. Also received within the same container are 2 meyers metallic foreign bodies measuring 18.0 and 25.0 cm in greatest dimension, consistent with portions of a knee explant. No soft tissue is present. No sections are submitted, gross only. /06/06/2018 saudi06/06/2018
[2018-06-07 18:33] VITALS: BP 120/65; PULSE 102; TEMP 99
== END 2018-06-07 18:45 | DRG 467 ==
LOC: FM/S 09:01
PROVIDERS: ADMIT Orthopaedic Surgery Orthopaedic Surgery of the Spine; ATTEND Orthopaedic Surgery Orthopaedic Surgery of the Spine
PROC: 0SRD0J9 Replacement of Left Knee Joint with Synthetic Substitute, Cemented, Open Approach (ICD-10-PCS; 2018-06-02)
PROC: 0SPD0JZ Removal of Synthetic Substitute from Left Knee Joint, Open Approach (ICD-10-PCS; principal; 2018-06-02 11:38)
DX: T84.033A Mechanical loosening of internal left knee prosthetic joint, initial encounter (principal); D62 Acute posthemorrhagic anemia; E87.1 Hypo-osmolality and hyponatremia; Z21 Asymptomatic human immunodeficiency virus [HIV] infection status; J45.909 Unspecified asthma, uncomplicated; I10 Essential (primary) hypertension; F17.210 Nicotine dependence, cigarettes, uncomplicated; M17.12 Unilateral primary osteoarthritis, left knee; Y83.8 Other surgical procedures as the cause of abnormal reaction of the patient, or of later complication, without mention of misadventure at the time of the procedure; Y92.89 Other specified places as the place of occurrence of the external cause
CPT/HCPCS: 36415; 73560-TC-LT-FY; 80048; 80053; 82607; 82728; 82746; 83540; 83550; 83735; 85025; 85027; 86359; 86360; 86803; 87340; 87389; 87522; 87536; 88300-TC; 88304-TC; 88311-TC; 94760; 97116-GP; 97162-GP

== ENCOUNTER 2018-07-29 21:36 | Emergency (ER) | payer OTHER ==
[2018-07-29 21:50] VITALS: BP 163/114; PULSE 94; TEMP 98.4; BMI 34.4
[2018-07-29] MEDS ORDERED: oxyCODONE HCL 5 MG TABLET PO ONE (21:57)
[2018-07-29] MEDS ORDERED: oxyCODONE HCL 5 MG TABLET ONE (22:03)
== END 2018-07-29 22:27 | disposition home or self-care (01) ==
LOC: FER 21:36
DX: M25.562 Pain in left knee (principal); G89.29 Other chronic pain
CPT/HCPCS: 99282-25

== ENCOUNTER 2018-10-25 10:54 | Inpatient (IN) | payer OTHER ==
[~2018-10-25 10:54] MED LIST changes: +CEFAZOLIN 1 GM/D5W 1 GM/50 ML BAG IVPB ONE; -CEFAZOLIN 2 GM in DEXTROSE 5%-WATER - 50 ML IVPB ONE; -CELECOXIB 200 MG CAPSULE PO ONE; -ROPIVICAINE 0.2%/MORPH PF/KETOROLAC - 51ML DISP.SYRINGE IA ONE; -TRANEXAMIC ACID 1000 MG/10 ML VIAL IVPUSH ONE
[2018-10-25 11:44] VITALS: BMI 34.7
[2018-10-25] MEDS ORDERED: VANCOMYCIN 1,000 MG in DEXTROSE 5%-WATER - 250 ML IVPB ONE (12:00)
[2018-10-25] MEDS ORDERED: TRANEXAMIC ACID 1000 MG/10 ML VIAL IVPUSH ONE (12:00)
[2018-10-25] MEDS ORDERED: GABAPENTIN 300 MG CAPSULE (FP) PO ONE (12:00)
[2018-10-25] MEDS ORDERED: MIDAZOLAM HCL 2 MG/2 ML SINGLE DOSE VIAL ONE (12:45)
[2018-10-25] MEDS ORDERED: BUPIVACAINE LIPOSOME/PF (EXPAREL) 266 MG/20 ML VIAL ONE (12:45)
[2018-10-25] MEDS ORDERED: SODIUM CHLORIDE 0.9% P/F 10 ML VIAL IJ ONE (12:45)
[2018-10-25] MEDS ORDERED: VANCOMYCIN 1,000 MG VIAL (RESTRICTED TO ID ONLY) ONE (13:15)
[2018-10-25] MEDS ORDERED: BUPIVACAINE HCL/PF 0.5% (5MG/ML) 10 ML VIAL ONE (13:35)
[2018-10-25] MEDS ORDERED: PROPOFOL 20 ML ONE (13:55)
[2018-10-25] MEDS ORDERED: ePHEDrine SULFATE 50 MG/1 ML AMPULE ONE ×2 (14:05→14:11)
[2018-10-25] MEDS ORDERED: ONDANSETRON 4 MG/2 ML VIAL IVPUSH PRN ×2 (16:13→17:09)
[2018-10-25] MEDS ORDERED: oxyCODONE HCL 5 MG TABLET PO PRN ×2 (16:13)
[2018-10-25] MEDS ORDERED: LACTATED RINGERS SOLUTION 1,000 ML IV SCH ×2 (16:15→17:15)
[2018-10-25] MEDS ORDERED: ceFAZolin SODIUM 1 GM VIAL ONE (16:18)
[2018-10-25] MEDS ORDERED: MAG HYDROX/AL HYDROX/SIMETH 30 ML UNIT-DOSE CUP PO PRN (17:09)
[2018-10-25] MEDS ORDERED: MAGNESIUM HYDROX 2400MG/30ML ORAL SUSPENSION 30 ML CUP PO PRN (17:09)
[2018-10-25] MEDS ORDERED: ALBUTEROL SO4 8 GM HFA INHALER IH PRN ×2 (17:19→18:39)
[2018-10-25] MEDS ORDERED: ACETAMINOPHEN 325 MG TABLET (FP) ONE (17:57)
[2018-10-25] MEDS: ACETAMINOPHEN 325 MG TABLET (FP) PO SCH ×2 (18:00→22:14)
--- NOTE | 2018-10-25 21:03 | HP ---
Admitting History and Physical - Admission Chief Complaint: left knee pain. denies chest pain, palpitations, nausea, vomiting, diarrhea History Source: Patient Limitations to Obtaining History: No Limitations - Past Medical History Cardiovascular: Yes: HTN Pulmonary: Yes: Asthma, COPD ...: No - Smoking History Smoking history: Current every day smoker Have you smoked in the past 12 months: Yes Aproximately how many cigarettes per day: 5 - Alcohol/Substance Use Hx Alcohol Use: No Home Medications - Allergies Allergies/Adverse Reactions: Allergies Allergy/AdvReac Type Severity Reaction Status Date / Time morphine AdvReac Severe Nausea Verified 10/25/18 11:34 - Home Medications Home Medications: Ambulatory Orders Amlodipine Besylate 5 mg PO DAILY 03/31/18 Bictegrav/Emtricit/Tenofov Ala [Biktarvy 50-200-25 mg Tablet] 1 each PO DAILY Cyclobenzaprine HCl 10 mg PO DAILY 03/31/18 Oxycodone HCl 30 mg PO Q6H 03/31/18 Zolpidem Tartrate [Ambien] 10 mg PO HS 03/31/18 Albuterol Sulfate [Proair Hfa] 8.5 gm IH ASDIR PRN 06/02/18 Aspirin Coated [Ecotrin -] 81 mg PO BID #90 tablet.ec 06/06/18 Acetaminophen [Tylenol -] 1,000 mg PO BID PRN 10/18/18 Simvastatin 10 mg PO HS 10/18/18 Family Disease History - Family Disease History Family History: Unremarkable Review of Systems - Review of Systems Constitutional: reports: Weakness Eyes: reports: No Symptoms HENT: reports: No Symptoms Neck: reports: No Symptoms Cardiovascular: reports: No Symptoms Respiratory: reports: No Symptoms Gastrointestinal: reports: No Symptoms Genitourinary: reports: No Symptoms Musculoskeletal: reports: Joint Pain Integumentary: reports: No Symptoms Neurological: reports: No Symptoms Endocrine: reports: No Symptoms Hematology/Lymphatic: reports: No Symptoms Psychiatric: reports: Anxiety Pain Intensity: 8 Physical Examination Vital Signs: Vital Signs Temperature 97.8 F 10/25/18 19:22 Pulse Rate 95 H 10/25/18 19:22 Respiratory Rate 10/25/18 19:22 Blood Pressure 150/90 10/25/18 19:22 O2 Sat by Pulse Oximetry (%) 100 07/31/19 19:22 Constitutional: Yes: Well Nourished, Anxious Eyes: Yes: WNL HENT: Yes: WNL Neck: Yes: WNL Cardiovascular: Yes: WNL Respiratory: Yes: WNL Gastrointestinal: Yes: WNL Renal/: Yes: WNL Musculoskeletal: Yes: Joint Stiffness Extremities: Yes: WNL Edema: No Peripheral Pulses WNL: Yes Integumentary: Yes: WNL Wound/Incision: Yes: Clean/Dry, Well Approximated, Dressing Dry and Intact Neurological: Yes: WNL ...Motor Strength: WNL Psychiatric: Yes: WNL Assessment/Plan 62 yo lady S/P revision of left knee. cont pain management. incentive spirometry. stool softeners started to prevent opioid induced constipation. -HTN: on amlodipine -CAD: on aspirin, lipitor. -chronic COPD: cont bronchodilators. -PT/OT/OOB as tolerated -ID: given Ancef periopertaively. -GI, DVT prophylaxis. -oral diet -will f/u in AM -hopefully will DC on Tuesday.
--- NOTE | 2018-10-25 21:16 | OP ---
DATE OF OPERATION: 10/25/2018 SURGEON: Ken Nicole MD HIDE COOKING OPERATOR: Spencer Nicole MD; AGNIESZKA Chavarria PREOPERATIVE DIAGNOSIS: Loosened femoral component, left revision total knee arthroplasty, due to periprosthetic fracture, distal femur. POSTOPERATIVE DIAGNOSIS: Loosened femoral component, left revision total knee arthroplasty, due to periprosthetic fracture, distal femur. OPERATION PERFORMED: Revision left total knee replacement with Camilla endoprosthesis, distal femur. ANESTHESIA: Spinal anesthesia with conscious sedation and peripheral nerve block. ANTIBIOTICS GIVEN: Kefzol 2 g, vancomycin 1 g preop; Kefzol 1 g given at the end of the procedure. TOURNIQUET TIME: 1 hour 40 minutes. DRAINAGE: 1/8-inch Hemovac x1. OPERATION DETAILS: Patient correctly identified, brought to the operating room. Left lower extremity was prepped and draped in the routine manner with Betadine scrub solution, wiped off with alcohol, DuraPrep applied. Timeout was called. Imaging was available for intraoperative evaluation. The skin was opened. The subcutaneous tissue opened to the level of the quadriceps mechanism, and with sharp dissection, skirting around the medial parapatellar component of the knee, a longitudinal incision made along the medial aspect of the tibial tubercle. The incision extended proximally around the parapatellar margin of the patella, up into the quadriceps tendon longitudinally, splitting the quadriceps tendon appropriately. The knee was flexed. The deficit of cement implant to the distal femoral component was noticed. This bone had broken away from the implant. The implant itself was not macroscopically loose. The original locking pin for this rotating-hinge arthroplasty was removed, and the distal femoral component tapped out easily with no difficulty. The tibial component was inspected. The previous tibial tubercle osteotomy had solidly healed, and the tibial component was solidly seated in the bone bed appropriately. Once the femoral component had been removed, resection of the proximal tibia and entire distal remaining diseased bone bed was removed. We measured appropriately a size 50-mm block intercalary body and the small Camilla component for the femoral articulation replacing the entire femoral condyle and distal femur. The stem was a 15 mm long stem for cementing as planned. The femoral bone bed was appropriately reamed up the diaphyseal canal to 17. Using reverse hooks, all soft tissue from the endosteal bone bed was removed. The reamers also helped remove soft tissue. There was some proximal pedestal which was broached and then reamed through this to get good chatter at 17 mm. The femoral bone bed was lavaged thoroughly. The original rotating-hinge for the tibial component was removed completely. The cementing was in 1 using third-generation cementing techniques, that is the femoral bed was brushed with a brush, pulse lavaged thoroughly, and completely clean and dry. The cement was mixed in a vacuum and pressurized into position. The [place] endoprosthetic components were then seated as per the sizing as outlined above. The rotating-hinge component was reassembled and the tibial component revised as well, thus bringing about a complete revision knee arthroplasty. The locking device inserted and the appropriate locked bump stock anteriorly seated onto the tibial tray to prevent hyperextension. The polyethylene measurement was that of a 13-mm polyethylene liner. This, before seating the lock in, brought about full extension of the knee, but no hyperextension, and collateral stability was excellent even without the locking pin. Locking pin was then inserted, locked solidly into position. Closure: After thorough lavage, the tissues were closed as follows: Fascia 1 Vicryl, subcutaneous 1 and 2-0 Vicryl, skin chau. OVERALL COMMENT: The operation went extremely well, difficult problem, but executed well. No complications. MD ERIN Hubbard/[id number]
[2018-10-25] MEDS ORDERED: ASPIRIN 325 MG TABLET PO SCH (22:00)
[2018-10-25] MEDS: SENNOSIDES/DOCUSATE COMBO (SENNA PLUS) TABLET (UD) PO SCH (22:13)
[2018-10-25] MEDS: ATORVASTATIN CA 10 MG TABLET (FP) PO SCH (22:13)
[2018-10-25] MEDS: ASPIRIN COATED 81 MG TABLET.EC PO SCH (22:14)
[2018-10-25] MEDS: GABAPENTIN 300 MG CAPSULE (FP) PO SCH (22:14)
[2018-10-26] MEDS ORDERED: VANCOMYCIN 1 GRAM (PRE-DOCKED) 1,000 MG/250 ML BAG IVPB ONE (00:01)
[2018-10-26] MEDS ORDERED: CEFAZOLIN 2 GM in DEXTROSE 5%-WATER - 50 ML IVPB SCH (01:00)
[2018-10-26] MEDS: CEFAZOLIN 2 GM/D5W 2 GM/50 ML ML IVPB SCH ×3 (02:09→17:48)
[2018-10-26] MEDS: oxyCODONE HCL 5 MG TABLET PO PRN ×2 (04:37→22:09)
[2018-10-26 07:31] LABS: HEMATOCRIT 33.1 % (32.4-45.2); MCH 31.1 pg (25.7-33.7); MCHC 33.2 g/dl (32.0-36.0); MEAN CELL VOLUME 93.8 fl (80-96); MEAN PLT VOLUME 7.3 fl (7.5-11.1); PLATELET COUNT 198 K/MM3 (134-434); RBC 3.54 M/mm3 (3.60-5.2); RDW 16.1 % (11.6-15.6); WHITE BLOOD COUNT 6.6 K/mm3 (4.0-10.8)
[2018-10-26 07:40] LABS: CALCIUM 8.4 mg/dl (8.5-10); CREATININE 0.7 mg/dl (0.55-1.3); POTASSIUM 4.1 mmol/L (3.5-5.1)
--- NOTE | 2018-10-26 08:22 | SPA.POSTOP ---
- POST-OP NOTE POD #1 s/p Left knee revision Denies CP or SOB. Feels slight nausea this am. Urinating without difficulty/bed espinal. Has not been oob to chair yet. Last Vital Signs Temp Pulse Resp BP Pulse Ox 99.6 F 106 H 18 147/92 98 10/26/18 06:00 10/26/18 06:00 10/26/18 06:00 10/26/18 06:00 10/26/18 06:00 Selected Entries 10/25/18 10/26/18 21:00 06:00 O2 Sat by Pulse 100 98 Oximetry (%) ERICKA: 80 ml Physical Exam General: No acute distress. Pulm: Clear to auscultation bilat anteriorly, mild expiratory wheezing/rhonchi. Cor: Regular rhythm, mild tachy cardia Abd: Soft. Non-tender. No distention LE: Soft, non-tender bilat. SCD's/Teds B/l Neuro: RLE 5/5 dorsi/plantar flextion. LLE 4/5 dorsi/plantar flexion. +2 DP b/ l. Dressing/gabriele wrap c/d/i CBC, BMP 10/26/18 07:15 10/26/18 07:15 A/P: 62 yo female s/p L TK revision, POD#1 Pt oob to chair this am by the nursing staff. Incentive spirometer/albuterol nebs Discontinue IV fluids Regular diet as tolerated Pt with pre-hospital use of oxycodone daily, this dose continued by anesthesia post-op DVT ppx with aspiring 81 mg BID Colace for stool softners
[2018-10-26] MEDS ORDERED: ALBUTEROL SO4 0.5 % INH SOLN 2.5 MG/0.5 ML VIAL.NEB. NEB ONE (08:23)
[2018-10-26] MEDS: ACETAMINOPHEN 325 MG TABLET (FP) PO SCH ×3 (09:16→22:06)
[2018-10-26] MEDS: GABAPENTIN 300 MG CAPSULE (FP) PO SCH ×2 (09:21→22:05)
[2018-10-26] MEDS: CYCLOBENZAPRINE HCL 10 MG TABLET (FP) PO SCH (09:21)
[2018-10-26] MEDS: ASPIRIN COATED 81 MG TABLET.EC PO SCH ×2 (09:21→22:05)
[2018-10-26] MEDS: PANTOPRAZOLE 40 MG TABLET (FP) PO SCH (09:22)
[2018-10-26] MEDS: MULTIVITAMINS (DAILY MVI) TABLET (FP) PO SCH (09:22)
[2018-10-26] MEDS: amLODIPine BESYLATE 5 MG TABLET (FP) PO SCH (09:22)
[2018-10-26] MEDS: SENNOSIDES/DOCUSATE COMBO (SENNA PLUS) TABLET (UD) PO SCH ×2 (09:22→22:05)
[2018-10-26] MEDS: BICTEGRAV/EMTRICIT/TENOFOV (BIKTARVY) 50-200-25 MG TABLET PO SCH (10:09)
--- NOTE | 2018-10-26 10:15 | PN ---
Progress Note, Physician Chief Complaint: left knee pain - Current Medication List Current Medications: Active Medications Acetaminophen (Tylenol -) 650 mg PO QID [facility] Last Admin: 10/26/18 09:16 Dose: 650 mg Al Hydroxide/Mg Hydroxide (Mylanta Oral Suspension -) 30 ml PO Q4H PRN PRN Reason: DYSPEPSIA Albuterol Sulfate (Ventolin Hfa Inhaler -) 1 puff IH Q4H PRN PRN Reason: WHEEZING Amlodipine Besylate (Norvasc -) 5 mg PO DAILY [facility] Last Admin: 10/26/18 09:22 Dose: 5 mg Aspirin (Ecotrin -) 81 mg PO BID [facility] Last Admin: 10/26/18 09:21 Dose: 81 mg Atorvastatin Calcium (Lipitor -) 10 mg PO HS [facility] Last Admin: 10/25/18 22:13 Dose: 10 mg Bictegravir/Emtricitabine/Tenofovir (Biktarvy 50-200-25 Mg Tablet) 1 each PO DAILY [facility] Cyclobenzaprine HCl (Flexeril -) 10 mg PO DAILY [facility] Last Admin: 10/26/18 09:21 Dose: 10 mg Gabapentin (Neurontin -) 300 mg PO BID [facility] Last Admin: 10/26/18 09:21 Dose: 300 mg Cefazolin Sodium/Dextrose (Ancef 2 Gm Premixed Ivpb -) 2 gm in 50 mls @ 100 mls /hr IVPB Q8H [facility] Stop: 10/27/18 00:59 Last Admin: 10/26/18 02:09 Dose: 100 mls/hr Magnesium Hydroxide (Milk Of Magnesia -) 30 ml PO PRN PRN PRN Reason: CONSTIPATION Multivitamins/Minerals/Vitamin C (Tab-A-Vit -) 1 tab PO DAILY [facility] Last Admin: 10/26/18 09:22 Dose: 1 tab Ondansetron HCl (Zofran Injection) 4 mg IVPUSH Q6H PRN PRN Reason: NAUSEA Last Admin: 10/25/18 17:58 Dose: 4 mg Oxycodone HCl (Roxicodone -) 30 mg PO Q6H PRN PRN Reason: PAIN LEVEL 6-10 Last Admin: 10/26/18 04:37 Dose: 30 mg Pantoprazole Sodium (Protonix -) 40 mg PO DAILY [facility] Last Admin: 10/26/18 09:22 Dose: 40 mg Senna/Docusate Sodium (Pericolace -) 2 tablet PO BID [facility] Last Admin: 10/26/18 09:22 Dose: 2 tablet Zolpidem Tartrate (Ambien -) 10 mg PO HS PRN PRN Reason: INSOMNIA - Objective Vital Signs: Vital Signs Temperature 99.6 F 10/26/18 06:00 Pulse Rate 106 H 10/26/18 06:00 Respiratory Rate 18 10/26/18 06:00 Blood Pressure 147/92 10/26/18 06:00 O2 Sat by Pulse Oximetry (%) 98 10/26/18 06:00 Constitutional: Yes: Well Nourished Eyes: Yes: WNL HENT: Yes: WNL Neck: Yes: WNL Cardiovascular: Yes: WNL Respiratory: Yes: WNL Gastrointestinal: Yes: WNL Genitourinary: Yes: WNL Musculoskeletal: Yes: Joint Stiffness Extremities: Yes: WNL Edema: No Peripheral Pulses WNL: Yes Integumentary: Yes: WNL Wound/Incision: Yes: Clean/Dry, Well Approximated Neurological: Yes: WNL ...Motor Strength: WNL Psychiatric: Yes: WNL Labs: CBC, BMP 10/26/18 07:15 10/26/18 07:15 Assessment/Plan 62 yo lady S/P revision of left knee POD#1 cont pain management. incentive spirometry. stool softeners started to prevent opioid induced constipation. -HTN: on amlodipine. tachycardia likely from pain. -CAD: on aspirin, lipitor. -chronic COPD: cont bronchodilators. -PT/OT/OOB as tolerated -ID: given Ancef periopertaively. -GI, DVT prophylaxis. -oral diet -will f/u in AM -assessment and plan discussed with pt and staff. phone calls answered throughout the day. 25 min -hopefully will DC home tomorrow.
[2018-10-26] MEDS ORDERED: PT OWN MED DRAWER 7, Y5N ONE (10:21)
--- NOTE | 2018-10-26 11:09 | PN ---
Progress Note (short form) - Note Progress Note: 62F POD1 s/p revision left TKR under spinal and peripheral nerve blocks. Pt states that her pain is similar to her chronic pre-operative pain. Pt denies any anesthetic complications. Pt is somnolent, falling asleep during conversation. AVSS. Agree with continuation of patient's preoperative narcotic regimen during the perioperative period.
[2018-10-26] MEDS: ATORVASTATIN CA 10 MG TABLET (FP) PO SCH (22:05)
[2018-10-26] MEDS: ZOLPIDEM TARTRATE 5 MG TABLET PO PRN (22:16)
[2018-10-27] MEDS: oxyCODONE HCL 5 MG TABLET PO PRN ×3 (06:30→19:41)
[2018-10-27 07:42] LABS: HEMATOCRIT 30.2 % (32.4-45.2); HEMOGLOBIN 10.2 GM/dl (10.7-15.3); MCH 31.7 pg (25.7-33.7); MCHC 33.8 g/dl (32.0-36.0); MEAN CELL VOLUME 93.6 fl (80-96); MEAN PLT VOLUME 7.7 fl (7.5-11.1); PLATELET COUNT 195 K/MM3 (134-434); RBC 3.23 M/mm3 (3.60-5.2); RDW 16.1 % (11.6-15.6); WHITE BLOOD COUNT 7.5 K/mm3 (4.0-10.8)
--- NOTE | 2018-10-27 09:29 | PN ---
Progress Note (short form) - Note Progress Note: POD#2, left TK revision PT without any complaints of SOB. CP. OOB yesterday with PT. No nausea/emesis. No bowel function. Pain improved today. Vital Signs Period Temp Pulse Resp BP Sys/Johnson Pulse Ox Last 24 Hr 97.7 F-99.8 F 96-107 16-20 119-137/72-83 93-99 ERICKA: 80-60-5ml GEN: A&0x3, NAD CV: RR, mild tachycardia Lungs: mild expiratory wheezing ABD: soft, non-distended, non-tender LE: SAVANHA/SCDS b/l. No calf tenderess or swelling noted b/l. Operative surgical dressing with some dry blood but remain intact and secure to the skin. Homvac removed today with the tip intact. Tal wrap and pressure dressing applied. NEURO: 5/5 dorsi/plantar/EHL b/l CBC, BMP /02/19 07:15 // 07:15 A/P: 62 yo female, POD#2 s/p Left knee revision Plan for discharge today after clearance from the medical service to rehab. Pt with some mild tachycardia. No CP/sob. Continue oral pain managment/stool softners for prevent constipation. Started ferrous today. DVT ppx with aspirin 81mg BID D/w Dr. Nicole
[2018-10-27] MEDS: amLODIPine BESYLATE 5 MG TABLET (FP) PO SCH (11:00)
[2018-10-27] MEDS: CYCLOBENZAPRINE HCL 10 MG TABLET (FP) PO SCH (11:00)
[2018-10-27] MEDS: PANTOPRAZOLE 40 MG TABLET (FP) PO SCH (11:00)
[2018-10-27] MEDS: GABAPENTIN 300 MG CAPSULE (FP) PO SCH ×2 (11:00→21:24)
[2018-10-27] MEDS: MULTIVITAMINS (DAILY MVI) TABLET (FP) PO SCH (11:00)
[2018-10-27] MEDS: ACETAMINOPHEN 325 MG TABLET (FP) PO SCH ×5 (11:34→21:24)
[2018-10-27] MEDS: SENNOSIDES/DOCUSATE COMBO (SENNA PLUS) TABLET (UD) PO SCH ×2 (11:35→21:24)
[2018-10-27] MEDS: ASPIRIN COATED 81 MG TABLET.EC PO SCH ×2 (11:35→21:24)
[2018-10-27] MEDS: BICTEGRAV/EMTRICIT/TENOFOV (BIKTARVY) 50-200-25 MG TABLET PO SCH (11:39)
[2018-10-27] MEDS ORDERED: PT OWN MED DRAWER 7, Y5N ONE (11:39)
[2018-10-27] MEDS: FERROUS SO4 325 MG TABLET (FP) PO SCH (13:45)
--- NOTE | 2018-10-27 14:07 | DS ---
"Physical Examination Vital Signs: Vital Signs Temperature 99.8 F H 10/27/18 06:00 Pulse Rate 107 H 10/27/18 06:00 Respiratory Rate 19 10/27/18 09:00 Blood Pressure 137/80 10/27/18 06:00 O2 Sat by Pulse Oximetry (%) 95 10/27/18 09:00 Constitutional: Yes: Well Nourished, No Distress Eyes: Yes: WNL HENT: Yes: WNL Neck: Yes: WNL Cardiovascular: Yes: WNL Respiratory: Yes: WNL Gastrointestinal: Yes: WNL Renal/: Yes: WNL Musculoskeletal: Yes: WNL Extremities: Yes: WNL Edema: No Peripheral Pulses WNL: Yes Integumentary: Yes: WNL Wound/Incision: Yes: Clean/Dry, Well Approximated Neurological: Yes: WNL ...Motor Strength: WNL Psychiatric: Yes: WNL Labs: CBC, BMP 10/27/18 07:15 10/26/18 07:15 Discharge Summary Reason For Visit: REVISION OF LEFT TOTAL KNEE Hospital Course: 62 yo lady S/P revision of left knee POD#2 cont pain management. incentive spirometry. stool softeners started to prevent opioid induced constipation. -HTN: on amlodipine. tachycardia likely from pain. -CAD: on aspirin, lipitor. -chronic COPD: cont bronchodilators. -PT/OT/OOB as tolerated -ID: given Ancef periopertaively. Condition: Stable - Instructions Diet, Activity, Other Instructions: Dr. Nicole Discharge Instructions for Knee Replacement Post Operative Instructions Physical activity Physical Therapist will come to your home for the first 5 days. You will be set up with outpatient PT at your first post-operative visit. Use assistive devices for ambulation at all times. Weight bearing as tolerated on your surgical side. Do not put pillow under knee. May put pillow under heel. Wound care Leave your surgical dressing in place. Do not change the dressing until seen by your surgeon in the office. No baths or showers. Do not submerge your incision. Do not apply any ointments or lotions to your incision. Please call the office if your dressing is soiled/dirty or is falling off. Apply Graduated Compression Stockings (TEDS) to both lower extremities - remove daily for hygiene ONLY. Diet There are no dietary restrictions. Eat healthy, high-fiber foods. Drink 6 to 8 glasses of liquid each day. This will assist in keeping your bowels are regular. Pain management Any pain prescription medication ordered should be taken as prescribed for moderate to severe pain. Do not take additional Tylenol while taking Percocet. Take Aspirin 81 mg two times a day for a total of 6 weeks to prevent blood clots. Call Dr. Nicole for any of the following: Severe pain not relieved by medication Fever of 101 or higher Excessive bleeding or drainage on dressing Inability to urinate If you experience chest pain or shortness of breath, please seek emergency care immediately. Please call the office at to confirm your post-op appointment for the week following surgery. [facility] OPERATOR: This report was requested by: Obi Whitt | Reference #: [id number] 10/16/2018 Diazepam 10 mg / 30 tables / Ken Nicole MS, MD 10/16/2018 Oxycodone hcl 30 mg / 120 tablets / Ken Nicole MS, MD Disposition: [facility] - Home Medications Comprehensive Discharge Medication List: Ambulatory Orders Amlodipine Besylate 5 mg PO DAILY 03/31/18 Bictegrav/Emtricit/Tenofov Ala [Biktarvy 50-200-25 mg Tablet] 1 each PO DAILY Cyclobenzaprine HCl 10 mg PO DAILY 03/31/18 Oxycodone HCl 30 mg PO Q6H 03/31/18 Zolpidem Tartrate [Ambien] 10 mg PO HS 03/31/18 Albuterol Sulfate [Proair Hfa] 8.5 gm IH ASDIR PRN 06/02/18 Aspirin Coated [Ecotrin -] 81 mg PO BID #90 tablet.ec 06/06/18 Acetaminophen [Tylenol -] 1,000 mg PO BID PRN 10/18/18 Simvastatin 10 mg PO HS 10/18/18"
--- NOTE | 2018-10-27 15:47 | PATH ---
Surgical Pathology Report Patient Name: HENRY EDOUARD Med. Rec. #: [id number] /Age/Gender: 1955 (Age: 62) / F Account: [id number] Location: [facility] Taken: 10/25/2018 Received: 10/25/2018 Reported: 10/27/2018 Physicians: Ken Nicole M.D. Specimen(s) Received A: BONE LEFT FEMUR B: LEFT KNEE HARDWARE Clinical History Periprosthetic left distal femur fracture Final Diagnosis A. BONE, FEMUR, LEFT, REVISION KNEE REPLACEMENT: BONE WITH MILD CHRONIC INFLAMMATION AND REACTIVE CHANGES, FIBROADIPOSE AND DENSE FIBROCONNECTIVE TISSUE. B. HARDWARE, KNEE, LEFT, REMOVAL: SURGICAL HARDWARE. MACROSCOPIC DIAGNOSIS. Electronically Signed Lila Urban M.D. Gross Description A. Received in formalin labeled "bone left femur," are 2 lucia-yellow portion of hollow bone measuring 4.0 x 3.0 x 2.0 cm and 9.0 x 8.0 x 6.2 cm, consistent with portions of femur. Classified Ad Taker sections are submitted in one cassette, following decalcification. B. Received fresh labeled "left knee hardware," are 3 meyers metallic portions of hardware as well as 3 white plastic portions of hardware, consistent with a prosthesis. The specimens range from 2.0-20.0 cm in greatest dimension. The largest portion displays attached hard cement material. No soft tissue is present. No sections are submitted, gross only. 10/26/2018 saudi10/26/2018
[2018-10-27] MEDS: ATORVASTATIN CA 10 MG TABLET (FP) PO SCH (21:24)
[2018-10-27] MEDS: ZOLPIDEM TARTRATE 5 MG TABLET PO PRN (22:12)
[2018-10-28] MEDS: FERROUS SO4 325 MG TABLET (FP) PO SCH (08:19)
[2018-10-28] MEDS: oxyCODONE HCL 5 MG TABLET PO PRN ×3 (08:19→23:28)
[2018-10-28] MEDS: ACETAMINOPHEN 325 MG TABLET (FP) PO SCH ×4 (09:30→21:50)
[2018-10-28] MEDS: CYCLOBENZAPRINE HCL 10 MG TABLET (FP) PO SCH (09:31)
[2018-10-28] MEDS: GABAPENTIN 300 MG CAPSULE (FP) PO SCH ×2 (09:31→21:50)
[2018-10-28] MEDS: ASPIRIN COATED 81 MG TABLET.EC PO SCH ×2 (09:31→21:50)
[2018-10-28] MEDS: PANTOPRAZOLE 40 MG TABLET (FP) PO SCH (09:32)
[2018-10-28] MEDS: amLODIPine BESYLATE 5 MG TABLET (FP) PO SCH (09:32)
[2018-10-28] MEDS: MULTIVITAMINS (DAILY MVI) TABLET (FP) PO SCH (09:32)
[2018-10-28] MEDS: SENNOSIDES/DOCUSATE COMBO (SENNA PLUS) TABLET (UD) PO SCH ×2 (09:32→21:50)
[2018-10-28] MEDS ORDERED: FERROUS SO4 325 MG TABLET (FP) PO SCH (10:00)
[2018-10-28] MEDS: BICTEGRAV/EMTRICIT/TENOFOV (BIKTARVY) 50-200-25 MG TABLET PO SCH (10:10)
--- NOTE | 2018-10-28 12:23 | PN ---
Progress Note, Physician Chief Complaint: left knee pain - Current Medication List Current Medications: Active Medications Acetaminophen (Tylenol -) 650 mg PO QID [facility] Last Admin: 10/28/18 09:30 Dose: 650 mg Al Hydroxide/Mg Hydroxide (Mylanta Oral Suspension -) 30 ml PO Q4H PRN PRN Reason: DYSPEPSIA Albuterol Sulfate (Ventolin Hfa Inhaler -) 1 puff IH Q4H PRN PRN Reason: WHEEZING Last Admin: 10/26/18 11:57 Dose: 1 puff Amlodipine Besylate (Norvasc -) 5 mg PO DAILY [facility] Last Admin: 10/28/18 09:32 Dose: 5 mg Aspirin (Ecotrin -) 81 mg PO BID [facility] Last Admin: 10/28/18 09:31 Dose: 81 mg Atorvastatin Calcium (Lipitor -) 10 mg PO HS [facility] Last Admin: 10/27/18 21:24 Dose: 10 mg Bictegravir/Emtricitabine/Tenofovir (Biktarvy 50-200-25 Mg Tablet) 1 each PO DAILY [facility] Last Admin: 10/27/18 11:39 Dose: 1 each Cyclobenzaprine HCl (Flexeril -) 10 mg PO DAILY [facility] Last Admin: 10/28/18 09:31 Dose: 10 mg Ferrous Sulfate (Feosol -) 325 mg PO DAILY@0800 [facility] Last Admin: 10/28/18 08:19 Dose: 325 mg Gabapentin (Neurontin -) 300 mg PO BID [facility] Last Admin: 10/28/18 09:31 Dose: 300 mg Magnesium Hydroxide (Milk Of Magnesia -) 30 ml PO PRN PRN PRN Reason: CONSTIPATION Multivitamins/Minerals/Vitamin C (Tab-A-Vit -) 1 tab PO DAILY [facility] Last Admin: 10/28/18 09:32 Dose: 1 tab Ondansetron HCl (Zofran Injection) 4 mg IVPUSH Q6H PRN PRN Reason: NAUSEA Last Admin: 10/25/18 17:58 Dose: 4 mg Oxycodone HCl (Roxicodone -) 30 mg PO Q6H PRN PRN Reason: PAIN LEVEL 6-10 Last Admin: 10/28/18 08:19 Dose: 30 mg Pantoprazole Sodium (Protonix -) 40 mg PO DAILY [facility] Last Admin: 10/28/18 09:32 Dose: 40 mg Senna/Docusate Sodium (Pericolace -) 2 tablet PO BID [facility] Last Admin: 10/28/18 09:32 Dose: 2 tablet Zolpidem Tartrate (Ambien -) 10 mg PO HS PRN PRN Reason: INSOMNIA Last Admin: 10/27/18 22:12 Dose: 10 mg - Objective Vital Signs: Vital Signs Temperature 98.7 F 10/28/18 10:00 Pulse Rate 96 H 10/28/18 10:00 Respiratory Rate 18 10/28/18 10:00 Blood Pressure 110/79 10/28/18 10:00 O2 Sat by Pulse Oximetry (%) 94 L 10/28/18 10:00 Constitutional: Yes: Well Nourished, No Distress Eyes: Yes: WNL HENT: Yes: WNL Neck: Yes: WNL Cardiovascular: Yes: WNL Respiratory: Yes: WNL Gastrointestinal: Yes: WNL Genitourinary: Yes: WNL Musculoskeletal: Yes: Joint Stiffness Extremities: Yes: WNL Edema: No Peripheral Pulses WNL: Yes Integumentary: Yes: WNL Wound/Incision: Yes: Clean/Dry, Well Approximated Neurological: Yes: WNL Psychiatric: Yes: WNL Labs: CBC, BMP 10/27/18 07:15 10/26/18 07:15 Assessment/Plan 62 yo lady S/P revision of left knee POD#2 cont pain management. incentive spirometry. stool softeners started to prevent opioid induced constipation. -HTN: on amlodipine. tachycardia likely from pain. -CAD: on aspirin, lipitor. -chronic COPD: cont bronchodilators. -PT/OT/OOB as tolerated -ID: given Ancef periopertaively. -GI, DVT prophylaxis. -oral diet -will f/u in AM -assessment and plan discussed with pt and staff. phone calls answered throughout the day. DC plan to rehab in progress 25 min
[2018-10-28] MEDS: NICOTINE 21 MG/24 HOURS TOPICAL PATCH TD SCH (16:34)
[2018-10-28] MEDS: ATORVASTATIN CA 10 MG TABLET (FP) PO SCH (21:50)
[2018-10-29] MEDS ORDERED: ZOLPIDEM TARTRATE 5 MG TABLET PO ONE ×2 (01:03→22:45)
[2018-10-29] MEDS: oxyCODONE HCL 5 MG TABLET PO PRN ×2 (08:51→18:00)
[2018-10-29] MEDS: FERROUS SO4 325 MG TABLET (FP) PO SCH (08:51)
[2018-10-29] MEDS ORDERED: PT OWN MED DRAWER 7, Y5N ONE (09:34)
[2018-10-29] MEDS: ACETAMINOPHEN 325 MG TABLET (FP) PO SCH ×4 (09:38→22:10)
[2018-10-29] MEDS: BICTEGRAV/EMTRICIT/TENOFOV (BIKTARVY) 50-200-25 MG TABLET PO SCH (09:39)
[2018-10-29] MEDS: NICOTINE 21 MG/24 HOURS TOPICAL PATCH TD SCH (09:40)
[2018-10-29] MEDS: ASPIRIN COATED 81 MG TABLET.EC PO SCH ×2 (09:40→22:10)
[2018-10-29] MEDS: GABAPENTIN 300 MG CAPSULE (FP) PO SCH ×2 (09:40→22:10)
[2018-10-29] MEDS: CYCLOBENZAPRINE HCL 10 MG TABLET (FP) PO SCH (09:40)
[2018-10-29] MEDS: SENNOSIDES/DOCUSATE COMBO (SENNA PLUS) TABLET (UD) PO SCH ×2 (09:41→22:09)
[2018-10-29] MEDS: MULTIVITAMINS (DAILY MVI) TABLET (FP) PO SCH (09:41)
[2018-10-29] MEDS: amLODIPine BESYLATE 5 MG TABLET (FP) PO SCH (09:41)
[2018-10-29] MEDS: PANTOPRAZOLE 40 MG TABLET (FP) PO SCH (09:41)
--- NOTE | 2018-10-29 13:49 | PN ---
Progress Note (short form) - Note Progress Note: POD#4 Doing well Walking in the hallway. Pain well controlled Temp Normal LE Wound dry No NVD PLAN D/C to rehab tomorrow DVT prophylaxis Baby Aspirin BID PT Mobile FWBAT See in the office in 10 days
--- NOTE | 2018-10-29 13:51 | PN ---
Progress Note (short form) - Note Progress Note: POD#4 Doing well Walking in the hallway. Pain well controlled Temp Normal [facility] Stable RESP Clear ABD Soft mild distension passing flatus LE Wound dry No NVD PLAN D/C to rehab tomorrow DVT prophylaxis Baby Aspirin BID PT [facility] FWBAT See in the office in 10 days
--- NOTE | 2018-10-29 16:56 | PN ---
Progress Note, Physician Chief Complaint: left knee pain denies chest pain, palpitations, nausea, vomting, diarrhea - Current Medication List Current Medications: Active Medications Acetaminophen (Tylenol -) 650 mg PO QID [facility] Last Admin: 10/29/18 13:34 Dose: 650 mg Al Hydroxide/Mg Hydroxide (Mylanta Oral Suspension -) 30 ml PO Q4H PRN PRN Reason: DYSPEPSIA Albuterol Sulfate (Ventolin Hfa Inhaler -) 1 puff IH Q4H PRN PRN Reason: WHEEZING Last Admin: 10/26/18 11:57 Dose: 1 puff Amlodipine Besylate (Norvasc -) 5 mg PO DAILY [facility] Last Admin: 10/29/18 09:41 Dose: 5 mg Aspirin (Ecotrin -) 81 mg PO BID [facility] Last Admin: 10/29/18 09:40 Dose: 81 mg Atorvastatin Calcium (Lipitor -) 10 mg PO HS [facility] Last Admin: 10/28/18 21:50 Dose: 10 mg Bictegravir/Emtricitabine/Tenofovir (Biktarvy 50-200-25 Mg Tablet) 1 each PO DAILY [facility] Last Admin: 10/29/18 09:39 Dose: 1 each Cyclobenzaprine HCl (Flexeril -) 10 mg PO DAILY [facility] Last Admin: 10/29/18 09:40 Dose: 10 mg Ferrous Sulfate (Feosol -) 325 mg PO DAILY@0800 [facility] Last Admin: 10/29/18 08:51 Dose: 325 mg Gabapentin (Neurontin -) 300 mg PO BID [facility] Last Admin: 10/29/18 09:40 Dose: 300 mg Magnesium Hydroxide (Milk Of Magnesia -) 30 ml PO PRN PRN PRN Reason: CONSTIPATION Last Admin: 10/29/18 09:41 Dose: 30 ml Multivitamins/Minerals/Vitamin C (Tab-A-Vit -) 1 tab PO DAILY [facility] Last Admin: 10/29/18 09:41 Dose: 1 tab Nicotine (Nicoderm Patch -) 21 mg TD DAILY [facility] Last Admin: 10/29/18 09:40 Dose: Not Given Ondansetron HCl (Zofran Injection) 4 mg IVPUSH Q6H PRN PRN Reason: NAUSEA Last Admin: 10/25/18 17:58 Dose: 4 mg Oxycodone HCl (Roxicodone -) 30 mg PO Q6H PRN PRN Reason: PAIN LEVEL 6-10 Last Admin: 10/29/18 08:51 Dose: 30 mg Pantoprazole Sodium (Protonix -) 40 mg PO DAILY [facility] Last Admin: 10/29/18 09:41 Dose: 40 mg Senna/Docusate Sodium (Pericolace -) 2 tablet PO BID [facility] Last Admin: 10/29/18 09:41 Dose: 2 tablet - Objective Vital Signs: Vital Signs Temperature 98.4 F 10/29/18 14:00 Pulse Rate 107 H 10/29/18 14:00 Respiratory Rate 18 10/29/18 14:00 Blood Pressure 129/83 10/29/18 14:00 O2 Sat by Pulse Oximetry (%) 97 10/29/18 14:00 Constitutional: Yes: Well Nourished, No Distress Eyes: Yes: WNL HENT: Yes: WNL, Other Cardiovascular: Yes: WNL Respiratory: Yes: WNL Genitourinary: Yes: WNL Musculoskeletal: Yes: Joint Stiffness Extremities: Yes: WNL Peripheral Pulses WNL: Yes Integumentary: Yes: WNL Wound/Incision: Yes: Clean/Dry, Well Approximated, Dressing Dry and Intact Neurological: Yes: WNL Psychiatric: Yes: WNL Labs: CBC, BMP 10/27/18 07:15 10/26/18 07:15 Assessment/Plan 62 yo lady S/P revision of left knee POD#3 cont pain management. incentive spirometry. stool softeners started to prevent opioid induced constipation. -HTN: on amlodipine. tachycardia likely from pain. -CAD: on aspirin, lipitor. -chronic COPD: cont bronchodilators. -PT/OT/OOB as tolerated -ID: given Ancef periopertaively. -GI, DVT prophylaxis. -oral diet -will f/u in AM -assessment and plan discussed with pt and staff. phone calls answered throughout the day. DC plan to rehab in progress. hopefully tomorrow. 25 min
[2018-10-29] MEDS: ATORVASTATIN CA 10 MG TABLET (FP) PO SCH (22:10)
[2018-10-30] MEDS: oxyCODONE HCL 5 MG TABLET PO PRN ×2 (08:11→16:05)
[2018-10-30] MEDS: FERROUS SO4 325 MG TABLET (FP) PO SCH (08:11)
[2018-10-30 08:19] LABS: BASO % 0.3 % (0-2.0); EOS % 2.9 % (0-4.5); HEMATOCRIT 29.1 % (32.4-45.2); HEMOGLOBIN 9.6 GM/dl (10.7-15.3); LYMPH % 31.7 % (8-40); MCH 31.3 pg (25.7-33.7); MCHC 32.9 g/dl (32.0-36.0); MEAN PLT VOLUME 7.2 fl (7.5-11.1); MONO % 9.5 % (3.8-10.2); NEUT % 55.6 % (42.8-82.8); PLATELET COUNT 244 K/MM3 (134-434); RBC 3.06 M/mm3 (3.60-5.2); RDW 16.2 % (11.6-15.6); WHITE BLOOD COUNT 4.7 K/mm3 (4.0-10.8)
[2018-10-30] MEDS: ACETAMINOPHEN 325 MG TABLET (FP) PO SCH ×3 (09:08→17:54)
[2018-10-30] MEDS: ASPIRIN COATED 81 MG TABLET.EC PO SCH (09:09)
[2018-10-30] MEDS: BICTEGRAV/EMTRICIT/TENOFOV (BIKTARVY) 50-200-25 MG TABLET PO SCH (09:10)
[2018-10-30] MEDS: GABAPENTIN 300 MG CAPSULE (FP) PO SCH (09:10)
[2018-10-30] MEDS: NICOTINE 21 MG/24 HOURS TOPICAL PATCH TD SCH (09:10)
[2018-10-30] MEDS: CYCLOBENZAPRINE HCL 10 MG TABLET (FP) PO SCH (09:10)
[2018-10-30] MEDS: amLODIPine BESYLATE 5 MG TABLET (FP) PO SCH (09:10)
[2018-10-30] MEDS: MULTIVITAMINS (DAILY MVI) TABLET (FP) PO SCH (09:11)
[2018-10-30] MEDS: SENNOSIDES/DOCUSATE COMBO (SENNA PLUS) TABLET (UD) PO SCH (09:11)
[2018-10-30] MEDS: PANTOPRAZOLE 40 MG TABLET (FP) PO SCH (09:11)
[2018-10-30 09:14] LABS: CALCIUM 8.2 mg/dl (8.5-10); CREATININE 0.8 mg/dl (0.55-1.3); POTASSIUM 4.2 mmol/L (3.5-5.1)
[2018-10-30] MEDS ORDERED: PT OWN MED DRAWER 7, Y5N ONE (10:21)
[2018-10-30 11:16] VITALS: TEMP 98
[2018-10-30 14:14] VITALS: BP 121/62; PULSE 97
--- NOTE | 2018-10-30 15:38 | PN ---
Progress Note, Physician Chief Complaint: left knee pain denies chest pain, palpitations, nausea, vomting, diarrhea - Current Medication List Current Medications: Active Medications Acetaminophen (Tylenol -) 650 mg PO QID [facility] Last Admin: 10/30/18 09:08 Dose: 650 mg Al Hydroxide/Mg Hydroxide (Mylanta Oral Suspension -) 30 ml PO Q4H PRN PRN Reason: DYSPEPSIA Albuterol Sulfate (Ventolin Hfa Inhaler -) 1 puff IH Q4H PRN PRN Reason: WHEEZING Last Admin: 10/26/18 11:57 Dose: 1 puff Amlodipine Besylate (Norvasc -) 5 mg PO DAILY [facility] Last Admin: 10/30/18 09:10 Dose: 5 mg Aspirin (Ecotrin -) 81 mg PO BID [facility] Last Admin: 10/30/18 09:09 Dose: 81 mg Atorvastatin Calcium (Lipitor -) 10 mg PO HS [facility] Last Admin: 10/29/18 22:10 Dose: 10 mg Bictegravir/Emtricitabine/Tenofovir (Biktarvy 50-200-25 Mg Tablet) 1 each PO DAILY [facility] Last Admin: 10/30/18 09:10 Dose: 1 each Cyclobenzaprine HCl (Flexeril -) 10 mg PO DAILY [facility] Last Admin: 10/30/18 09:10 Dose: 10 mg Ferrous Sulfate (Feosol -) 325 mg PO DAILY@0800 [facility] Last Admin: 10/30/18 08:11 Dose: 325 mg Gabapentin (Neurontin -) 300 mg PO BID [facility] Last Admin: 10/30/18 09:10 Dose: 300 mg Magnesium Hydroxide (Milk Of Magnesia -) 30 ml PO PRN PRN PRN Reason: CONSTIPATION Last Admin: 10/29/18 09:41 Dose: 30 ml Multivitamins/Minerals/Vitamin C (Tab-A-Vit -) 1 tab PO DAILY [facility] Last Admin: 10/30/18 09:11 Dose: 1 tab Nicotine (Nicoderm Patch -) 21 mg TD DAILY [facility] Last Admin: 10/30/18 09:10 Dose: 21 mg Ondansetron HCl (Zofran Injection) 4 mg IVPUSH Q6H PRN PRN Reason: NAUSEA Last Admin: 10/25/18 17:58 Dose: 4 mg Oxycodone HCl (Roxicodone -) 30 mg PO Q6H PRN PRN Reason: PAIN LEVEL 6-10 Last Admin: 10/30/18 08:11 Dose: 30 mg Pantoprazole Sodium (Protonix -) 40 mg PO DAILY [facility] Last Admin: 10/30/18 09:11 Dose: 40 mg Senna/Docusate Sodium (Pericolace -) 2 tablet PO BID [facility] Last Admin: 10/30/18 09:11 Dose: 2 tablet - Objective Vital Signs: Vital Signs Temperature 98.0 F 10/30/18 14:13 Pulse Rate 97 H 10/30/18 14:13 Respiratory Rate 20 10/30/18 14:13 Blood Pressure 121/62 10/30/18 14:13 O2 Sat by Pulse Oximetry (%) 100 10/30/18 14:13 Constitutional: Yes: Well Nourished, No Distress, Calm Eyes: Yes: WNL HENT: Yes: WNL Neck: Yes: WNL Cardiovascular: Yes: WNL Respiratory: Yes: WNL Gastrointestinal: Yes: WNL Genitourinary: Yes: WNL Musculoskeletal: Yes: WNL Extremities: Yes: WNL Edema: No Peripheral Pulses WNL: Yes Integumentary: Yes: WNL Wound/Incision: Yes: Clean/Dry, Well Approximated Neurological: Yes: WNL Psychiatric: Yes: WNL Labs: CBC, BMP 10/30/18 07:00 10/30/18 07:00 Assessment/Plan 62 yo lady S/P revision of left knee POD#4 cont pain management. incentive spirometry. stool softeners started to prevent opioid induced constipation. -HTN: on amlodipine. tachycardia likely from pain. -CAD: on aspirin, lipitor. -chronic COPD: cont bronchodilators. -PT/OT/OOB as tolerated -ID: given Ancef periopertaively. -GI, DVT prophylaxis. -oral diet -will f/u in AM -assessment and plan discussed with pt and staff. phone calls answered throughout the day. DC plan to rehab in progress for today. all DC meds done on Tuesday, no change. 25 min
--- NOTE | 2018-10-30 18:05 | PN ---
Progress Note (short form) - Note Progress Note: POD#5 Pt states that she had a BM last pm. OOB and ambulating with walker. Pain controlled with oral pain medications. Vital Signs Period Temp Pulse Resp BP Sys/Johnson Pulse Ox Last 24 Hr 97.9 F-98.5 F 77-98 17-20 101-132/58-78 93-100 GEN: A&0x3, NAD CV: RRR Lungs: Mild wheezing b/l with expiration ABD: soft, non-distended, non-tender LE: post-operative dressing in place. Dried blood on outer Tal wrap. Calf soft, non-tender b/l. SAVANAH stocking to RLE and Acewrap reapplied from foot to knee this evening. small amount of swelling to left ankle. CBC, BMP 10/30/18 07:00 10/30/ 07:00 A/P: 62 yo female s/p L Knee revision D/w Dr. Nicole, plan for transfer to rehab DVT ppx with aspirin 81 mg BID Follow-up with Dr. Nicole in the office next week
== END 2018-10-30 19:10 | DRG 489 ==
LOC: FM/S 10:56
PROVIDERS: ADMIT Orthopaedic Surgery Orthopaedic Surgery of the Spine; ATTEND Internal Medicine
PROC: 0SWD04Z Revision of Internal Fixation Device in Left Knee Joint, Open Approach (ICD-10-PCS; principal; 2018-10-25 12:00)
DX: T84.89XA Other specified complication of internal orthopedic prosthetic devices, implants and grafts, initial encounter (principal); I10 Essential (primary) hypertension; J44.9 Chronic obstructive pulmonary disease, unspecified; I25.10 Atherosclerotic heart disease of native coronary artery without angina pectoris; F17.210 Nicotine dependence, cigarettes, uncomplicated; Y83.9 Surgical procedure, unspecified as the cause of abnormal reaction of the patient, or of later complication, without mention of misadventure at the time of the procedure
CPT/HCPCS: 36415; 73560-TC-LT-FY; 80048; 85025; 85027; 87389; 88300-TC; 88304-TC; 88311-TC; 94760; 97116-GP; 97163-GP

== ENCOUNTER 2018-11-11 17:02 | Emergency (ER) | payer OTHER | END 2018-11-11 21:10 | LOC: FER 17:02 ==

== ENCOUNTER 2019-10-10 08:51 | Inpatient (IN) | payer OTHER ==
[2019-10-02 12:25] VITALS: BMI 38.7
[2019-10-10] MEDS ORDERED: SODIUM CHLORIDE 0.9% P/F 10 ML VIAL IJ ONE (10:11)
[2019-10-10] MEDS ORDERED: MIDAZOLAM HCL 2 MG/2 ML SINGLE DOSE VIAL ONE (10:11)
[2019-10-10] MEDS ORDERED: BUPIVACAINE LIPOSOME/PF (EXPAREL) 266 MG/20 ML VIAL ONE (10:11)
--- NOTE | 2019-10-10 10:22 | HP ---
CHIEF COMPLAINT: Right knee pain HISTORY OF PRESENT ILLNESS: 63 year-old female with a PMH significant for HTN, HLD, HIV, asthma (current smoker), and right knee osteoarthritis s/p right total knee replacement on 10/10/[address] Ken Nicole. Recent Travel: No PAST MEDICAL HISTORY: Hypertension Hyperlipidemia HIV Asthma PAST SURGICAL HISTORY: Gastric sleeve Back surgery 2014 Left knee replacement + 2 revisions Social History: Smoking: current everyday smoker Alcohol: no Drugs: no Family history: reviewed and non-contributory Allergies morphine Adverse Reaction (Severe, Verified 10/02/19 12:05) Nausea HOME MEDICATIONS: Home Medications Medication Instructions Recorded Amlodipine Besylate 5 mg PO DAILY 03/31/18 Cyclobenzaprine HCl 10 mg PO DAILY 03/31/18 Oxycodone HCl 30 mg PO Q4H 03/31/18 Zolpidem Tartrate [Ambien] 10 mg PO HS 03/31/18 Albuterol Sulfate [Proair Hfa] 8.5 gm IH ASDIR PRN 06/02/18 Simvastatin 10 mg PO HS 10/18/18 Ferrous Sulfate [Feosol] 325 mg PO DAILY ud 10/27/18 Gabapentin [Neurontin -] 300 mg PO BID capsule 10/27/18 Multivitamins [Multivit ([facility] 1 tab PO DAILY tab 10/27/18 Formulary)] Pantoprazole Sodium [Protonix -] 40 mg PO DAILY tablet.ec 10/27/18 Sennosides/Docusate Sodium 2 tablet PO BID tablet 10/27/18 [Pericolace -] Bictegrav/Emtricit/Tenofov Ala 1 each PO DAILY 11/11/18 [Biktarvy 50-200-25 mg Tablet] REVIEW OF SYSTEMS CONSTITUTIONAL: Absent: fever, chills, diaphoresis, generalized weakness, malaise, loss of appetite, weight change HEENT: Absent: rhinorrhea, nasal congestion, throat pain, throat swelling, difficulty swallowing, mouth swelling, ear pain, eye pain, visual changes CARDIOVASCULAR: Absent: chest pain, syncope, palpitations, irregular heart rate, lightheadedness, peripheral edema RESPIRATORY: Absent: cough, shortness of breath, dyspnea with exertion, orthopnea, wheezing, stridor, hemoptysis GASTROINTESTINAL: Absent: abdominal pain, abdominal distension, nausea, vomiting, diarrhea, constipation, melena, hematochezia GENITOURINARY: Absent: dysuria, frequency, urgency, hesitancy, hematuria, flank pain, genital pain MUSCULOSKELETAL: Absent: myalgia, arthralgia, joint swelling, back pain, neck pain SKIN: Absent: rash, itching, pallor HEMATOLOGIC/IMMUNOLOGIC: Absent: easy bleeding, easy bruising, lymphadenopathy, frequent infections ENDOCRINE: Absent: unexplained weight gain, unexplained weight loss, heat intolerance, cold intolerance NEUROLOGIC: Absent: headache, focal weakness or paresthesias, dizziness, unsteady gait, seizure, mental status changes, bladder or bowel incontinence PSYCHIATRIC: Absent: anxiety, depression, suicidal or homicidal ideation, hallucinations. PHYSICAL EXAMINATION Vital Signs Temperature 99.4 F 10/11/19 14:00 Pulse Rate 95 H 10/11/19 14:00 Respiratory Rate 18 10/11/19 14:00 Blood Pressure 101/52 L 10/11/19 14:00 O2 Sat by Pulse Oximetry (%) 100 10/11/19 14:00 GENERAL: A&Ox3, in no apparent distress LUNGS: Diffuse wheezing HEART: Regular rate and rhythm, S1, S2 LLE: surgical dressing c/d/i, ice pack, +Hemovac with serosanguinous drainage, +flex/extend toes, sensory intact NEUROLOGICAL: Cranial nerves II through XII grossly intact. Normal speech Pre op Hgb 14.6 BUN 10 Cr 0.8 Intra op Cefazolin 2g x 1; Vanc 1g x 1 EBL <100mL LR 1300mL ASSESSMENT/PLAN 63 year-old female with a PMH significant for HTN, HLD, HIV, asthma (current smoker), and right knee osteoarthritis s/p right total knee replacement on 10/10/[address] Ken Nicole. --POD #0 --perioperative antibiotics per surgery --pain management per surgery --ASA 81mg BID --protonix --bowel regimen --incentive spirometry --Hemovac drain, monitor output COVID negative collected 10/07/19 Hypertension --continue amlodipine Hyperlipidemia --continue statin HIV --stable, continue Biktarvy Asthma --patient states her breathing is at baseline --albuterol inhaler q6h FEN Fluids: LR@125mL/hr Electrolytes: replete as indicated Nutrition: regular diet DVT prophylaxis: OOB, ambulation, SCDs, TEDs, ASA 81mg BID Physical therapy Dispo: continues to require inpatient care. Full code. Visit type - Emergency Visit Emergency Visit: No - New Patient This patient is new to me today: Yes Date on this admission: 10/11/19 - Critical Care Critical Care patient: No
[2019-10-10] MEDS ORDERED: CEFAZOLIN 2 GM/D5W 2 GM/50 ML ML IVPB ONE (10:38)
[2019-10-10] MEDS ORDERED: TRANEXAMIC ACID 1000 MG/10 ML VIAL IVPUSH ONE (10:38)
[2019-10-10] MEDS ORDERED: ROCURONIUM BROMIDE 50 MG/5 ML VIAL ONE (11:51)
[2019-10-10] MEDS ORDERED: PROPOFOL 20 ML ONE (11:51)
[2019-10-10] MEDS ORDERED: ePHEDrine SULFATE 50 MG/1 ML AMPULE ONE (12:14)
[2019-10-10] MEDS ORDERED: GLYCOPYRROLATE 0.2 MG/1 ML VIAL ONE (12:32)
[2019-10-10] MEDS ORDERED: ceFAZolin SODIUM 1 GM VIAL ONE ×3 (12:33→14:44)
[2019-10-10] MEDS ORDERED: KETOROLAC TROMETHAMINE 30 MG/1 ML VIAL ONE (12:33)
[2019-10-10] MEDS ORDERED: LIDOCAINE HCL/PF 2% SDV 5ML VIAL ONE (12:33)
[2019-10-10] MEDS ORDERED: DEXAMETHASONE SOD PHOSPHATE 4 MG/1 ML VIAL ONE (12:33)
[2019-10-10] MEDS ORDERED: VANCOMYCIN 1,000 MG VIAL (RESTRICTED TO ID ONLY) ONE (12:33)
[2019-10-10] MEDS ORDERED: NEOSTIGMINE METHYLSULFATE 0.5 MG/ML - 10 ML MDV ONE (14:40)
[2019-10-10] MEDS ORDERED: TRANEXAMIC ACID 1000 MG/10 ML VIAL ONE (14:43)
[2019-10-10] MEDS ORDERED: SUCCINYLCHOLINE CHLORIDE 200 MG/10 ML SYRINGE ONE (14:50)
[2019-10-10] MEDS ORDERED: LABETALOL HCL 5 MG/1 ML (100MG/20 ML VIAL) ONE (14:53)
[2019-10-10] MEDS ORDERED: HYDROmorphone HCL/PF 1 MG/ML VIAL ONE (14:59)
[2019-10-10] MEDS ORDERED: ALBUTEROL SO4 HFA INHALER IH PRN (15:11)
[2019-10-10] MEDS ORDERED: MAGNESIUM HYDROX 2400MG/30ML ORAL SUSPENSION 30 ML CUP PO PRN (15:12)
[2019-10-10] MEDS ORDERED: MAG HYDROX/AL HYDROX/SIMETH 30 ML UNIT-DOSE CUP PO PRN (15:12)
[2019-10-10] MEDS ORDERED: ONDANSETRON 4 MG/2 ML VIAL IVPUSH PRN (15:12)
[2019-10-10] MEDS ORDERED: LACTATED RINGERS SOLUTION 1,000 ML IV SCH (15:15)
--- NOTE | 2019-10-10 15:16 | PN ---
Progress Note (short form) - Note Progress Note: 63F s/p RIGHT total knee replacement POD #0. -Pain control: per anaesthesia team. -DVT PPx: -Chemical: ASA 81mg PO BID x 6 weeks. -Mechanical: SAVANAH's, SCD's. -Incentive spirometry q15 min. -PT/OT/Rehab, OOB. -WBAT RLE. -Post-op Ancef x 3 doses; Vancomycin x 1. -f/u post-op TOV: 8 hours max. -f/u AM labs. -Diet as tolerated. -Care per medical hospitalist team. -Discharge planning: f/u [facility] [place] [facility] 10-14 days; call for appointment . -Will follow. Ken Nicole MD (Orthopaedic Surgery).
--- NOTE | 2019-10-10 15:17 | OP ---
Operative Note - Note: Operative Date: 10/10/19 Pre-Operative Diagnosis: End stage osteoarthritis right knee Operation: Right total knee replacement Implants: Camilla Triathlon. Femur - 6. Tibia - 7. Poly - 9mm, TS. Patella - 27mm, symmetric Post-Operative Diagnosis: Same as Pre-op Surgeon: Ken Nicole Poultry Dressing Worker: Spencer Nicole Anesthesiologist/CUSTOMS AGENT: Vincent Méndez Anesthesia: General Estimated Blood Loss (mls): 0 Drains & Tubes with Location: 1 x deep HemoVac Fluid Volume Replaced (mls): 1,300 (Crystalloid) Operative Report Dictated: Yes
[2019-10-10] MEDS: HYDROmorphone HCL 0.5 MG/0.5 ML SYRINGE ONE ×3 (15:25→15:45)
[2019-10-10] MEDS ORDERED: HYDROmorphone HCL CARPU-JECT 1 MG/1 ML DISP.SYRIN IVPUSH PRN (15:27)
[2019-10-10] MEDS ORDERED: oxyCODONE HCL 5 MG TABLET PO PRN (15:27)
[2019-10-10] MEDS ORDERED: PROMETHAZINE HCL 25 MG/1 ML VIAL IVPUSH PRN (15:27)
[2019-10-10] MEDS ORDERED: HYDROmorphone HCL 0.5 MG/0.5 ML SYRINGE ONE ×3 (15:33→15:52)
[2019-10-10] MEDS: oxyCODONE HCL 5 MG TABLET PO SCH ×2 (17:32→22:16)
[2019-10-10] MEDS: ACETAMINOPHEN 325 MG TABLET (FP) PO SCH (20:41)
[2019-10-10] MEDS: CEFAZOLIN 2 GM/D5W 2 GM/50 ML ML IVPB SCH (20:41)
[2019-10-10] MEDS: GABAPENTIN 300 MG CAPSULE PO SCH (21:16)
[2019-10-10] MEDS: SENNOSIDES/DOCUSATE COMBO (SENNA PLUS) TABLET (UD) PO SCH (21:16)
[2019-10-10] MEDS: ATORVASTATIN CA 10 MG TABLET (FP) PO SCH (21:16)
[2019-10-10] MEDS: ASPIRIN 81 MG CHEWABLE TABLETS PO SCH (21:16)
[2019-10-10] MEDS ORDERED: SENNOSIDES/DOCUSATE COMBO (SENNA PLUS) TABLET (UD) PO SCH (22:00)
[2019-10-10] MEDS ORDERED: oxyCODONE HCL 10 MG SUSTAINED ACTING TABLET PO SCH (22:00)
[2019-10-10] MEDS: ZOLPIDEM TARTRATE 5 MG TABLET PO PRN (22:24)
[2019-10-10] MEDS ORDERED: VANCOMYCIN 1 GM in D5W (PRE-DOCKED) 1,000 MG/250 ML IVPB ONE (23:00)
[2019-10-10] MEDS ORDERED: LOCK ITEM NR ONE (23:30)
[2019-10-11] MEDS: oxyCODONE HCL 5 MG TABLET PO PRN (00:33)
[2019-10-11] MEDS: KETOROLAC TROMETHAMINE 30 MG/1 ML VIAL IVPUSH PRN ×3 (02:12→17:19)
[2019-10-11] MEDS: CEFAZOLIN 2 GM/D5W 2 GM/50 ML ML IVPB SCH ×3 (02:48→14:08)
[2019-10-11] MEDS: ACETAMINOPHEN 325 MG TABLET (FP) PO SCH ×5 (04:28→21:27)
[2019-10-11] MEDS: oxyCODONE HCL 5 MG TABLET PO SCH ×5 (05:42→21:33)
[2019-10-11 07:57] LABS: HEMATOCRIT 32.9 % (32.4-45.2); HEMOGLOBIN 10.7 GM/dl (10.7-15.3); MCH 31.4 pg (25.7-33.7); MCHC 32.7 g/dl (32.0-36.0); MEAN CELL VOLUME 95.9 fl (80-96); PLATELET COUNT 237 K/MM3 (134-434); RBC 3.43 M/mm3 (3.60-5.2); RDW 13.4 % (11.6-15.6)
[2019-10-11 08:00] LABS: CALCIUM 8.3 mg/dl (8.5-10); POTASSIUM 3.9 mmol/L (3.5-5.1)
--- NOTE | 2019-10-11 08:07 | PN ---
Progress Note (short form) - Note Progress Note: Surgery POD #1 Right TKA, patient seen and examined at bedside c/o pain although resting comfortably and I had to rouse her for the examination. She is voiding and tolerating her diet. She denies any CP, SOB, N/V fever or chills. Vital Signs Temp 99.2 F 10/11/19 06:51 Pulse 92 H 10/11/19 06:51 Resp 16 10/11/19 06:51 BP 124/80 10/11/19 06:51 Pulse Ox 94 L 10/11/19 06:51 Intake & Output 10/10/19 10/10/19 10/11/19 11:59 23:59 11:59 Intake Total 1300 300 350 Output Total 100 140 Balance 1300 200 210 Weight 240 lb Intake: IV 1300 IVPB 350 Oral 300 Output: Drainage 0 40 Right Knee 0 40 Urine 100 100 Void 100 100 Other: Voiding Method Bedpan # Unmeasured Voids Void 2 Height 5 ft 6 in Body Mass Index (BMI) 38.7 Weight Measurement Method Standing Scale AM labs pending PE: A&Ox3, NAD Unlabored resp on 2L NC Right LE thigh soft and supple, dressing c/d/i with hemavac drain in good position with 40cc out overnight. B/L LE compartments war and well perfused, soft, supple, non-tender with dorsi/plantar flexion intact Problem List - Problems (1) History of total right knee replacement Assessment/Plan: POD #1 patient doing well -Pain control: per anaesthesia team. -DVT PPx: -Chemical: ASA 81mg PO BID x 6 weeks. -Mechanical: SAVANAH's, SCD's. -Incentive spirometry q15 min. -PT/OT/Rehab, OOB. -WBAT RLE. -Post-op Ancef x 3 doses; Vancomycin x 1. -f/u AM labs. -Diet as tolerated. -Care per medical hospitalist team. -Discharge planning: f/u [facility] [place] [facility] 10-14 days; call for appointment . -d/c planning for rehab Code(s): Z96.651 - PRESENCE OF RIGHT ARTIFICIAL KNEE JOINT
[2019-10-11] MEDS ORDERED: PANTOPRAZOLE 40 MG TABLET PO SCH (10:00)
--- NOTE | 2019-10-11 10:07 | PN ---
Physical Exam: SUBJECTIVE: Patient seen and examined oob to chair. Did well in PT this morning. OBJECTIVE: Vital Signs Period Temp Pulse Resp BP Sys/Johnson Pulse Ox Last 24 Hr 97.6 F-99.2 F 52-92 13-20 114-164/61-92 94-99 GENERAL: A&Ox3, in no apparent distress LUNGS: Diffuse wheezing, audible on expiration HEART: Regular rate and rhythm, S1, S2 LLE: surgical dressing c/d/i, ice pack, +Hemovac with serosanguinous drainage, +flex/extend toes, sensory intact NEUROLOGICAL: Cranial nerves II through XII grossly intact. Normal speech Laboratory Results - last 24 hr 10/11/19 10/11/19 07:05 07:05 WBC 7.0 RBC 3.43 L Hgb 10.7 Hct 32.9 MCV 95.9 MCH 31.4 MCHC 32.7 RDW 13.4 D Plt Count 237 MPV 7.0 L Sodium 135 L Potassium 3.9 Chloride 98 Carbon Dioxide 25 Anion Gap 12 BUN 15.0 Creatinine 1.0 Est GFR (CKD-EPI)AfAm 69.92 Est GFR (CKD-EPI)NonAf 60.33 Random Glucose 128 H Calcium 8.3 L Active Medications Generic Name Dose Route Start Last Admin Trade Name Freq PRN Reason Stop Dose Admin Acetaminophen 650 mg 10/10/19 15:30 10/11/19 04:28 Tylenol - PO 10/13/19 15:29 Not Given Q6H KELLIE Al Hydroxide/Mg Hydroxide 30 ml 10/10/19 15:12 Mylanta Oral Suspension - PO Q4H PRN DYSPEPSIA Albuterol Sulfate puff 10/10/19 15:11 Ventolin Hfa Inhaler - IH ASDIR PRN WHEEZING Amlodipine Besylate 5 mg 10/11/19 10:00 Norvasc - PO DAILY KELLIE Aspirin 81 mg 10/10/19 22:00 10/10/19 21:16 Asa - PO 81 mg BID KELLIE Administration Atorvastatin Calcium 10 mg 10/10/19 22:00 10/10/19 21:16 Lipitor - PO 10 mg HS KELLIE Administration Bictegravir/Emtricitabine/Tenofovir 1 each 10/11/19 10:00 Biktarvy 50-200-25 Mg Tablet PO DAILY KELLIE Cyclobenzaprine HCl 10 mg 10/11/19 10:00 Flexeril - PO DAILY [facility] Ferrous Sulfate 325 mg 10/11/19 10:00 Feosol - PO DAILY KELLIE Gabapentin 300 mg 10/10/19 22:00 10/10/19 21:16 Neurontin - PO 300 mg BID KELLIE Administration Cefazolin Sodium/Dextrose 2 gm in 50 mls @ 100 mls/hr 10/10/19 21:00 10/11/19 02:48 Ancef 2 Gm Premixed Ivpb - IVPB 10/11/19 20:59 100 mls/hr Q6H KELLIE Administration Ketorolac Tromethamine 30 mg 10/11/19 01:40 10/11/19 07:51 Toradol Injection - IVPUSH 10/16/19 01:39 30 mg Q6H PRN Administration PAIN LEVEL 6-10 Magnesium Hydroxide 30 ml 10/10/19 15:12 Milk Of Magnesia - PO PRN PRN CONSTIPATION Ondansetron HCl 4 mg 10/10/19 15:12 Zofran Injection IVPUSH Q6H PRN NAUSEA Oxycodone HCl 30 mg 10/10/19 18:00 10/11/19 05:42 Roxicodone - PO 30 mg Q4HWA KELLIE Administration Oxycodone HCl 5 mg 10/10/19 15:27 Roxicodone - PO Q3H PRN PAIN LEVEL 1-5 Oxycodone HCl 10 mg 10/10/19 15:27 10/11/19 00:33 Roxicodone - PO 10 mg Q3H PRN Administration PAIN LEVEL 6-10 Pantoprazole Sodium 40 mg 10/11/19 10:00 Protonix - PO DAILY [facility] Senna/Docusate Sodium 2 tablet 10/10/19 22:00 10/10/19 21:16 Pericolace - PO 2 tablet BID KELLIE Administration Zolpidem Tartrate 10 mg 10/10/19 22:00 10/10/19 22:24 Ambien - PO 10 mg HS PRN Administration INSOMNIA ASSESSMENT/PLAN 63 year-old female with a PMH significant for HTN, HLD, HIV, asthma (current smoker), and right knee osteoarthritis s/p right total knee replacement on 10/10/[address] Ken Nicole. --POD #1 --perioperative antibiotics complete --pain well-managed with PO meds --ASA 81mg BID --protonix --bowel regimen --incentive spirometry --Hemovac drain, monitor output COVID negative collected 10/07/19 Hypertension --continue amlodipine Hyperlipidemia --continue statin HIV --stable, continue Biktarvy Asthma --stable --albuterol inhaler q6h FEN Fluids: LR@125mL/hr Electrolytes: replete as indicated Nutrition: regular diet DVT prophylaxis: OOB, ambulation, SCDs, TEDs, ASA 81mg BID Physical therapy Dispo: continues to require inpatient care. Full code. Visit type - Emergency Visit Emergency Visit: No - New Patient This patient is new to me today: No - Critical Care Critical Care patient: No
[2019-10-11] MEDS ORDERED: PT OWN MED DRAWER 7, Y5N ONE ×2 (10:09→10:33)
[2019-10-11] MEDS: CYCLOBENZAPRINE HCL 10 MG TABLET (FP) PO SCH (10:36)
[2019-10-11] MEDS: FERROUS SO4 325 MG TABLET (FP) PO SCH (10:36)
[2019-10-11] MEDS: ASPIRIN 81 MG CHEWABLE TABLETS PO SCH ×2 (10:36→21:26)
[2019-10-11] MEDS: BICTEGRAV/EMTRICIT/TENOFOV (BIKTARVY) 50-200-25 MG TABLET PO SCH (10:36)
[2019-10-11] MEDS: SENNOSIDES/DOCUSATE COMBO (SENNA PLUS) TABLET (UD) PO SCH ×2 (10:37→21:26)
[2019-10-11] MEDS: GABAPENTIN 300 MG CAPSULE PO SCH ×2 (10:37→21:26)
[2019-10-11] MEDS: amLODIPine BESYLATE 5 MG TABLET (FP) PO SCH (10:37)
[2019-10-11] MEDS: PANTOPRAZOLE 40 MG TABLET PO SCH (10:38)
--- NOTE | 2019-10-11 12:12 | PN ---
Progress Note (short form) - Note Progress Note: Anesthesia postop note 63 y/o F s/p GA for TKR under GA POD#1, vss, aaox3, ambulated for PT, pain fairly well controlled. No anesthesia complications.
--- NOTE | 2019-10-11 16:41 | OP ---
DATE OF OPERATION: 10/10/2019 SURGEON: Ken Nicole MD DOG CONTROL OFFICER: Spencer Nicole MD PREOPERATIVE DIAGNOSIS: Tricompartment osteoarthritis, right knee, with fixed valgus deformity and fixed flexed deformity. POSTOPERATIVE DIAGNOSIS: Tricompartment osteoarthritis, right knee, with fixed valgus deformity and fixed flexed deformity. OPERATION PERFORMED: 1. Right posterior stabilized cemented total knee arthroplasty (Camilla). ( [id number]) 2. Lateral retinacular release. ([id number]) ANESTHESIA: General. ANTIBIOTICS GIVEN: Ancef 2 g, 1 g vancomycin preop; 1 g Ancef given at the time of release of tourniquet. TOURNIQUET TIME: 120 minutes. OPERATION DETAILS: Patient correctly identified, brought to the operating room. Right lower extremity was prepped, draped in routine manner with Betadine scrub solution, wiped off with alcohol, DuraPrep applied. Timeout was called. Imaging was available for intraoperative evaluation. On the table, evaluation revealed a fixed flexed approximately, 10-degree, and almost 30-degree valgus fixed deformity. Midline incision was utilized. Skin incision taken down through the subcutaneous fat to the fascia. The epimysium of the vastus medialis was lifted off the muscle with sharp dissection, right around to virtually to linea aspera, freeing the vastus medialis significantly distomedially. The dissection was then centered on the proximomedial aspect of the tibia, alongside the tibial tubercle on the medial side. A longitudinal incision made to the level of the inferior pole of the patella, and the vastus medialis cuff of tendon was incised directly, leaving about 1/2 an inch of cuff left behind for closure of the fascia and capsule later. The entire vastus medialis was mobilized. A blunt Hohmann was placed in the plane just above the suprapatellar pouch that was outside of the pouch, and the entire pouch was excised using cautery. This was diseased with significant synovitic material. The knee revealed severe tricompartmental osteoarthritis and a markedly deficient lateral femoral condyle, explaining the valgus deformity. This was both distal and posterior deficits of the bone. The tibia was subluxed forwards, placing a blunt Hohmann behind the cruciate ligaments. The cruciate ligaments had been already transected. The tibia was moved forward. Sharp Hohmann's was placed laterally on the lip edge of the plateau to free the soft tissues laterally off the actual tibia. The lateral meniscus was fragmented. The tibial plateau on the lateral side revealed a significant divot from bone deficit. A markedly sclerotic tram track in the bone both on the lateral femoral as well as lateral tibial plateau noted. Once this had been performed, the jig for the tibia was extramedullary placed. The cut was made not perpendicular to the tibia, providing a surface that measured 7 for a tibial tray. A femoral bone bed was then prepared. The starter drill was inserted slightly medial because of valgus deformity, that is medial of the intercondylar notch. The sword of the starter device was inserted. The bone bed was sucked to remove lipid material from the intermedullary canal. The jig was applied to the sword and the distal cut made, proximal to the medial joint line by 4 mL. The appropriate jig was seated. The appropriate distal cuts, anterior, posterior, as well as chamfer cuts made. The lateral chamfer as well as posterior cuts air-balled because there was deficient bone. The jig was meticulously placed with the shoes of the jig parallel to the tibial cut surface as the only reference we could enjoy to achieve this. This brought about a complete simulation of Whitesides line at 90 degrees to the actual tibial tray to the tibial cut surface and posterior condylar cut surface. The trialing was size 6. The knee was brought into full extension, positioned, and the marked valgus now had been corrected to neutral alignment without any soft tissue release excepting for a resection of the shattered meniscus on the lateral side. The medial meniscus was also resected appropriately. The popliteus was released as it was under tight tension. Once this had been performed, the box cut for the femur was placed. The box cut was sized appropriately, and the size 6 femoral component that is trial, with a 9-mm polyethylene placed on a 7 trial tibial tray. This brought the knee into full extension. A jog of laxity on the medial side noted, bringing about the knee for a TS polyethylene which lay to be seated. The bone was thoroughly lavaged with pulsed lavage. Cementing was in 1 stage, femur and tibia. The tibial surface was repaired with the appropriate starter drill and fins. The patella was prepared by excising the retropatellar surface along Whitesides line, meaning from patella ligament to quadriceps tendon. The appropriate lollipop jig enabled easy cutting of the lug holes for the polyethylene tray. The tissues and bone were thoroughly lavaged. The cementing was in 1 stage. All extraneous cement was removed. The knee was brought in full extension, and a TS size 9 polyethylene inserted. Prior to the insertion of the polyethylene, all extraneous cement was removed. The wound was thoroughly lavaged and completely cleaned at the time of seating of the polyethylene. The knee was brought in full extension and flexion, resulting in a slight tilting and a tendency towards subluxation of the patella, and thus a lateral release was performed. This was gauged not to involve the lateral medial genicular vessel. The lateral release was taken right down to the tibial plateau surface. This facilitated markedly improved patellar tracking. CLOSURE: Retinacular tissue and capsule 1 Vicryl, subcutaneous 1 Vicryl, skin chau. DRAINAGE: A 1/8-inch Hemovac brought out laterally but draining the vastus medialis bone bed. No complications. The operation went well. MD ERIN Hubbard/[id number] MTDD
[2019-10-11] MEDS ORDERED: ALBUTEROL SO4 HFA INHALER IH PRN (17:45)
[2019-10-11] MEDS: ATORVASTATIN CA 10 MG TABLET (FP) PO SCH (21:26)
[2019-10-12] MEDS: oxyCODONE HCL 5 MG TABLET PO PRN ×2 (01:26→19:04)
[2019-10-12] MEDS: ACETAMINOPHEN 325 MG TABLET (FP) PO SCH ×4 (03:03→21:39)
[2019-10-12] MEDS: oxyCODONE HCL 5 MG TABLET PO SCH ×5 (06:32→22:29)
[2019-10-12 08:12] LABS: HEMATOCRIT 30.5 % (32.4-45.2); MCH 31.7 pg (25.7-33.7); MCHC 32.7 g/dl (32.0-36.0); MEAN CELL VOLUME 96.9 fl (80-96); MEAN PLT VOLUME 7.5 fl (7.5-11.1); PLATELET COUNT 214 K/MM3 (134-434); RBC 3.15 M/mm3 (3.60-5.2); RDW 13.7 % (11.6-15.6); WHITE BLOOD COUNT 8.8 K/mm3 (4.0-10.8)
--- NOTE | 2019-10-12 09:28 | PN ---
Progress Note (short form) - Note Progress Note: Orthopedic Surgery note; PT with out complaints of CP/SOB. Pain at a level of 2. Tolerating a diet without any nausea or emesis. No BM but passing flatus. Vital Signs Period Temp Pulse Resp BP Sys/Johnson Pulse Ox Last 24 Hr 98.4 F-99.6 F 81-103 18-20 83-114/52-66 92-100 ERICKA: 60 ml overnight, serosangrenous-180ml GEN: A&0x3, NAD Right knee: surgical dressing c/d/i. b/l calf soft, non-tender. SAVANAH SCDs in place. 5/5 dorsi/plantar flexion CBC, BMP /17/ 07:20 07/16/20 07:05 A/p: 63 yo female s/p Right total knee replacement, POD#2 Drain removed today and pressure dressing applied with gauze and gabriele wrap Diet as tolerated Pain management with oral medications DVT ppx with aspirin 81 mg D/w Dr. Nicole
[2019-10-12] MEDS ORDERED: PT OWN MED DRAWER 7, Y5N ONE (09:54)
--- NOTE | 2019-10-12 10:03 | DS ---
Physical Exam: SUBJECTIVE: Patient seen and examined OBJECTIVE: Vital Signs Period Temp Pulse Resp BP Sys/Johnson Pulse Ox Last 24 Hr 98.4 F-99.6 F 81-103 18-20 83-114/52-66 92-100 PHYSICAL EXAM GENERAL: A&Ox3, in no apparent distress LUNGS: Diffuse wheezing, audible on expiration HEART: Regular rate and rhythm, S1, S2 LLE: surgical dressing c/d/i, ice pack, +flex/extend toes, sensory intact NEUROLOGICAL: Cranial nerves II through XII grossly intact. Normal speech LABS Laboratory Results - last 24 hr 10/12/19 07:20 WBC 8.8 RBC 3.15 L Hgb 10.0 L Hct 30.5 L MCV 96.9 H MCH 31.7 MCHC 32.7 RDW 13.7 Plt Count 214 MPV 7.5 HOSPITAL COURSE: Date of Admission:10/10/19 Date of Discharge: 10/12/19 63 year-old female with a PMH significant for HTN, HLD, HIV, asthma (current smoker), and right knee osteoarthritis s/p right total knee replacement on 10/10/[address] Ken Nicole. --perioperative antibiotics complete --pain well-managed with PO meds --ASA 81mg BID x 6 weeks COVID negative collected 10/07/19 Hypertension --continued amlodipine Hyperlipidemia --continued statin HIV --stable, continued Biktarvy Asthma --stable Minutes to complete discharge: 35 Discharge Summary Problems reviewed: Yes Reason For Visit: OSTEOARTHRITIS RIGHT KNEE Current Active Problems History of total right knee replacement (Acute) Condition: Improved - Instructions Diet, Activity, Other Instructions: Dr. Nicole Discharge Instructions for Knee Replacement Post Operative Instructions Physical activity Physical Therapist will come to your home for the first 5 days. You will be set up with outpatient PT at your first post-operative visit. Use assistive devices for ambulation at all times. Weight bearing as tolerated on your surgical side. Do not put pillow under knee. May put pillow under heel. Wound care Leave your surgical dressing in place. Do not change the dressing until seen by your surgeon in the office. No baths or showers. Do not submerge your incision. Do not apply any ointments or lotions to your incision. Please call the office if your dressing is soiled/dirty or is falling off. Apply Graduated Compression Stockings (TEDS) to both lower extremities - remove daily for hygiene ONLY. Diet There are no dietary restrictions. Eat healthy, high-fiber foods. Drink 6 to 8 glasses of liquid each day. This will assist in keeping your bowels are regular. Pain management Any pain prescription medication ordered should be taken as prescribed for moderate to severe pain. Do not take additional Tylenol while taking Percocet. Take Aspirin 81 mg two times a day for a total of 6 weeks to prevent blood clots. Call Dr. Nicole for any of the following: Severe pain not relieved by medication Fever of 101 or higher Excessive bleeding or drainage on dressing Inability to urinate If you experience chest pain or shortness of breath, please seek emergency care immediately. Please call the office at to confirm your post-op appointment for the week following surgery. Disposition: [facility] - Home Medications Comprehensive Discharge Medication List: Ambulatory Orders Amlodipine Besylate 5 mg PO DAILY 03/31/18 Cyclobenzaprine HCl 10 mg PO DAILY 03/31/18 Zolpidem Tartrate [Ambien] 10 mg PO HS 03/31/18 oxyCODONE HCL [Oxycodone HCl] 30 mg PO Q4H 03/31/18 Albuterol Sulfate [Proair Hfa] 8.5 gm IH ASDIR PRN 06/02/18 Simvastatin 10 mg PO HS 10/18/18 Ferrous Sulfate [Feosol] 325 mg PO DAILY ud 10/27/18 Gabapentin [Neurontin -] 300 mg PO BID capsule 10/27/18 Multivitamins [Multivit ([facility] Formulary)] 1 tab PO DAILY tab 10/27/18 Pantoprazole Sodium [Protonix -] 40 mg PO DAILY tablet.ec 10/27/18 Sennosides/Docusate Sodium [Pericolace -] 2 tablet PO BID tablet 10/27/18 Bictegrav/Emtricit/Tenofov Ala [Biktarvy 50-200-25 mg Tablet] 1 each PO DAILY 11/11/18 This patient is new to me today: No Emergency Visit: No Critical Care patient: No - Discharge Referral Referred to [facility] No
[2019-10-12] MEDS: GABAPENTIN 300 MG CAPSULE PO SCH ×2 (10:13→21:39)
[2019-10-12] MEDS: ASPIRIN 81 MG CHEWABLE TABLETS PO SCH ×2 (10:13→21:39)
[2019-10-12] MEDS: FERROUS SO4 325 MG TABLET (FP) PO SCH (10:13)
[2019-10-12] MEDS: PANTOPRAZOLE 40 MG TABLET PO SCH (10:13)
[2019-10-12] MEDS: amLODIPine BESYLATE 5 MG TABLET (FP) PO SCH (10:13)
[2019-10-12] MEDS: CYCLOBENZAPRINE HCL 10 MG TABLET (FP) PO SCH (10:13)
[2019-10-12] MEDS: SENNOSIDES/DOCUSATE COMBO (SENNA PLUS) TABLET (UD) PO SCH ×2 (10:13→21:39)
[2019-10-12] MEDS: BICTEGRAV/EMTRICIT/TENOFOV (BIKTARVY) 50-200-25 MG TABLET PO SCH (10:14)
[2019-10-12] MEDS: KETOROLAC TROMETHAMINE 30 MG/1 ML VIAL IVPUSH PRN (12:12)
--- NOTE | 2019-10-12 17:10 | PATH ---
Surgical Pathology Report Patient Name: HENRY EDOUARD Med. Rec. #: [id number] /Age/Gender: 1955 (Age: 63) / F Account: [id number] Location: [facility] Taken: 10/10/2019 Received: 10/10/2019 Reported: 10/12/2019 Physicians: Ken Nicole M.D. Specimen(s) Received RIGHT KNEE BONES Clinical History Right knee osteoarthritis Final Diagnosis BONES, KNEE, RIGHT, TOTAL KNEE REPLACEMENT: BONE WITH DEGENERATIVE JOINT DISEASE, AND SYNOVIUM. Electronically Signed Lila Urban M.D. Gross Description Received in formalin labeled "right knee bones," is a 12.5 x 12.0 x 2.0 cm aggregate of multiple irregular portions of bone and soft tissue. The tibial plateau measures 9.3 x 6.0 x 2.0 cm. There are multiple areas of eburnation present, measuring up to 2.8 cm in greatest dimension. The remaining articular surfaces are lucia-yellow and diffusely granular. The underlying trabecular bone is yellow and hard. Grit Removal Operator sections are submitted in one cassette, following decalcification. [facility]11[facility]2019
[2019-10-12] MEDS: ATORVASTATIN CA 10 MG TABLET (FP) PO SCH (21:39)
[2019-10-13] MEDS: ACETAMINOPHEN 325 MG TABLET (FP) PO SCH ×2 (03:00→10:17)
[2019-10-13] MEDS: oxyCODONE HCL 5 MG TABLET PO SCH ×5 (06:00→23:33)
[2019-10-13] MEDS: oxyCODONE HCL 5 MG TABLET PO PRN ×2 (07:10→23:26)
--- NOTE | 2019-10-13 09:43 | PN ---
Physical Exam: SUBJECTIVE: Patient was seen and examined at bedside, c/o Rt knee pain and no BM since sx, reports passing flatus,denies cp, sob, palpitations, abdominal pain, N/V/D or urinary symptoms OBJECTIVE: Vital Signs Period Temp Pulse Resp BP Sys/Johnson Pulse Ox Last 24 Hr 98.2 F-99.5 F 78-93 18-20 91-114/48-67 96-100 GENERAL: The patient is awake, alert, and fully oriented, in no acute distress. HEAD: Normal with no signs of trauma. EYES: PERRL, extraocular movements intact, sclera anicteric, conjunctiva clear. No ptosis. ENT: Ears normal, nares patent, oropharynx clear without exudates, moist mucous membranes. NECK: Trachea midline, full range of motion, supple. LUNGS: Breath sounds equal, clear to auscultation bilaterally, no wheezes, no crackles, no accessory muscle use. HEART: Regular rate and rhythm, S1, S2 without murmur, rub or gallop. ABDOMEN: Soft, nontender, nondistended, normoactive bowel sounds, no guarding, no rebound, no hepatosplenomegaly, no masses. EXTREMITIES: 2+ pulses, warm, well-perfused, no edema. Rt knee dsg intact NEUROLOGICAL: Cranial nerves II through XII grossly intact. Normal speech, gait not observed. PSYCH: Normal mood, normal affect. SKIN: Warm, dry, normal turgor, no rashes or lesions noted Active Medications Generic Name Dose Route Start Last Admin Trade Name Freq PRN Reason Stop Dose Admin Acetaminophen 650 mg 10/10/19 15:30 10/13/19 03:00 Tylenol - PO 10/13/19 15:29 Not Given Q6H KELLIE Al Hydroxide/Mg Hydroxide 30 ml 10/10/19 15:12 Mylanta Oral Suspension - PO Q4H PRN DYSPEPSIA Albuterol Sulfate 2 puff 10/11/19 17:45 Ventolin Hfa Inhaler - IH Q6H PRN SHORTNESS OF BREATH Amlodipine Besylate 5 mg 10/11/19 10:00 10/12/19 10:13 Norvasc - PO 5 mg DAILY KELLIE Administration Aspirin 81 mg 10/10/19 22:00 10/12/19 21:39 Asa - PO 81 mg BID KELLIE Administration Atorvastatin Calcium 10 mg 10/10/19 22:00 10/12/19 21:39 Lipitor - PO 10 mg HS KELLIE Administration Bictegravir/Emtricitabine/Tenofovir 1 each 10/11/19 10:00 10/12/19 10:14 Biktarvy 50-200-25 Mg Tablet PO 1 each DAILY KELLIE Administration Cyclobenzaprine HCl 10 mg 10/11/19 10:00 10/12/19 10:13 Flexeril - PO 10 mg DAILY KELLIE Administration Ferrous Sulfate 325 mg 10/11/19 10:00 10/12/19 10:13 Feosol - PO 325 mg DAILY KELLIE Administration Gabapentin 300 mg 10/10/19 22:00 10/12/19 21:39 Neurontin - PO 300 mg BID KELLIE Administration Ketorolac Tromethamine 30 mg 10/11/19 01:40 10/12/19 12:12 Toradol Injection - IVPUSH 10/16/19 01:39 30 mg Q6H PRN Administration PAIN LEVEL 6-10 Magnesium Hydroxide 30 ml 10/10/19 15:12 Milk Of Magnesia - PO PRN PRN CONSTIPATION Ondansetron HCl 4 mg 10/10/19 15:12 Zofran Injection IVPUSH Q6H PRN NAUSEA Oxycodone HCl 30 mg 10/10/19 18:00 10/13/19 06:00 Roxicodone - PO Not Given Q4HWA KELLIE Oxycodone HCl 5 mg 10/10/19 15:27 Roxicodone - PO Q3H PRN PAIN LEVEL 1-5 Oxycodone HCl 10 mg 10/10/19 15:27 10/13/19 07:10 Roxicodone - PO 10 mg Q3H PRN Administration PAIN LEVEL 6-10 Pantoprazole Sodium 40 mg 10/11/19 10:00 10/12/19 10:13 Protonix - PO 40 mg DAILY KELLIE Administration Senna/Docusate Sodium 2 tablet 10/10/19 22:00 10/12/19 21:39 Pericolace - PO 2 tablet BID KELLIE Administration Zolpidem Tartrate 10 mg 10/10/19 22:00 10/10/19 22:24 Ambien - PO 10 mg HS PRN Administration INSOMNIA ASSESSMENT/PLAN: 63 year-old female with a PMH significant for HTN, HLD, HIV, asthma (current smoker), and right knee osteoarthritis s/p right total knee replacement on 10/10/[address] Ken Nicole. COVID negative collected 10/07/19 -POD #3 -perioperative antibiotics completed -pain well-managed with PO meds -will cont on ASA 81mg BID -protonix -bowel regimen - encourage to use incentive spirometry -Hemovac drain removed *Hypertension- BP stable -continue amlodipine *Hyperlipidemia -continue statin *HIV -stable, continue Biktarvy *Asthma- stable -albuterol inhaler q6h FEN Electrolytes: replete as indicated Nutrition: regular diet DVT prophylaxis: OOB, ambulation, SCDs, TEDs, ASA 81mg BID Physical therapy Dispo: Pt is medically stable for discharge to Rehab facility, accepted at [facility] but pt refusing to go there. Pending placement. Visit type - Emergency Visit Emergency Visit: Yes ED Registration Date: 10/10/19 Care time: The patient presented to the Emergency Department on the above date and was hospitalized for further evaluation of their emergent condition. - New Patient This patient is new to me today: Yes Date on this admission: 10/13/19 - Critical Care Critical Care patient: No
[2019-10-13] MEDS: BICTEGRAV/EMTRICIT/TENOFOV (BIKTARVY) 50-200-25 MG TABLET PO SCH (10:14)
[2019-10-13] MEDS: PANTOPRAZOLE 40 MG TABLET PO SCH (10:15)
[2019-10-13] MEDS ORDERED: BISACODYL 5 MG TABLET.DR (FP) PO ONE (10:15)
[2019-10-13] MEDS: GABAPENTIN 300 MG CAPSULE PO SCH ×2 (10:15→21:36)
[2019-10-13] MEDS: ASPIRIN 81 MG CHEWABLE TABLETS PO SCH ×2 (10:15→21:36)
[2019-10-13] MEDS: SENNOSIDES/DOCUSATE COMBO (SENNA PLUS) TABLET (UD) PO SCH ×2 (10:15→21:36)
[2019-10-13] MEDS: FERROUS SO4 325 MG TABLET (FP) PO SCH (10:15)
[2019-10-13] MEDS: CYCLOBENZAPRINE HCL 10 MG TABLET (FP) PO SCH (10:15)
[2019-10-13] MEDS: amLODIPine BESYLATE 5 MG TABLET (FP) PO SCH (10:15)
[2019-10-13] MEDS ORDERED: PT OWN MED DRAWER 7, Y5N ONE (10:38)
[2019-10-13] MEDS: ATORVASTATIN CA 10 MG TABLET (FP) PO SCH (21:36)
[2019-10-13] MEDS: ZOLPIDEM TARTRATE 5 MG TABLET PO PRN (23:24)
[2019-10-14] MEDS: oxyCODONE HCL 5 MG TABLET PO SCH ×6 (06:32→22:01)
--- NOTE | 2019-10-14 08:27 | PN ---
Physical Exam: SUBJECTIVE: Patient seen and examined 10/14/2019: Pt was to be discharged on tuesday but refused to leave as didint want the rehab facility picked for her. This morning pt reports pain to the right knee (RN advised me she just received 30mg oxycodone). Pt denies any cp, sob, n/v/f/c Is ambulating with PT around the unit wit a walker. OBJECTIVE: Vital Signs Period Temp Pulse Resp BP Sys/Johnson Pulse Ox Last 24 Hr 98.2 F-99.4 F 80-100 98-111/57-68 95-100 GENERAL: The patient is awake, alert, and fully oriented, in no acute distress. Sitting up in the chair HEAD: Normal with no signs of trauma. EYES: extraocular movements intact, sclera anicteric, conjunctiva clear. No ptosis. ENT: Ears normal, nares patent, oropharynx clear without exudates, moist mucous membranes. NECK: Trachea midline, full range of motion, supple. LUNGS: Breath sounds equal, clear to auscultation bilaterally, no wheezes, no crackles, no accessory muscle use. HEART: Regular rate and rhythm, S1, S2 without murmur, rub or gallop. ABDOMEN: Soft, nontender, nondistended, normoactive bowel sounds, no guarding, no rebound, no hepatosplenomegaly, no masses. POS OBESE EXTREMITIES: 2+ pulses, warm, well-perfused, POS RIGHT KNEE EDEMA, DRESSING C/D/I NEUROLOGICAL: Cranial nerves II through XII grossly intact. Normal speech, gait not observed. PSYCH: Normal mood, normal affect. SKIN: Warm, dry, normal turgor, no rashes or lesions noted Active Medications Generic Name Dose Route Start Last Admin Trade Name Freq PRN Reason Stop Dose Admin Al Hydroxide/Mg Hydroxide 30 ml 10/10/19 15:12 Mylanta Oral Suspension - PO Q4H PRN DYSPEPSIA Albuterol Sulfate 2 puff 10/11/19 17:45 Ventolin Hfa Inhaler - IH Q6H PRN SHORTNESS OF BREATH Amlodipine Besylate 5 mg 10/11/19 10:00 10/13/19 10:15 Norvasc - PO 5 mg DAILY KELLIE Administration Aspirin 81 mg 10/10/19 22:00 10/13/19 21:36 Asa - PO 81 mg BID KELLIE Administration Atorvastatin Calcium 10 mg 10/10/19 22:00 10/13/19 21:36 Lipitor - PO 10 mg HS KELLIE Administration Bictegravir/Emtricitabine/Tenofovir 1 each 10/11/19 10:00 10/13/19 10:14 Biktarvy 50-200-25 Mg Tablet PO 1 each DAILY KELLIE Administration Cyclobenzaprine HCl 10 mg 10/11/19 10:00 10/13/19 10:15 Flexeril - PO 10 mg DAILY KELLIE Administration Ferrous Sulfate 325 mg 10/11/19 10:00 10/13/19 10:15 Feosol - PO 325 mg DAILY KELLIE Administration Gabapentin 300 mg 10/10/19 22:00 10/13/19 21:36 Neurontin - PO 300 mg BID KELLIE Administration Ketorolac Tromethamine 30 mg 10/11/19 01:40 10/12/19 12:12 Toradol Injection - IVPUSH 10/16/19 01:39 30 mg Q6H PRN Administration PAIN LEVEL 6-10 Magnesium Hydroxide 30 ml 10/10/19 15:12 Milk Of Magnesia - PO PRN PRN CONSTIPATION Ondansetron HCl 4 mg 10/10/19 15:12 Zofran Injection IVPUSH Q6H PRN NAUSEA Oxycodone HCl 30 mg 10/10/19 18:00 10/14/19 07:02 Roxicodone - PO 30 mg Q4HWA KELLIE Administration Oxycodone HCl 5 mg 10/10/19 15:27 Roxicodone - PO Q3H PRN PAIN LEVEL 1-5 Oxycodone HCl 10 mg 10/10/19 15:27 10/13/19 23:26 Roxicodone - PO 10 mg Q3H PRN Administration PAIN LEVEL 6-10 Pantoprazole Sodium 40 mg 10/11/19 10:00 10/13/19 10:15 Protonix - PO 40 mg DAILY KELLIE Administration Senna/Docusate Sodium 2 tablet 10/10/19 22:00 10/13/19 21:36 Pericolace - PO 2 tablet BID KELLIE Administration Zolpidem Tartrate 10 mg 10/10/19 22:00 10/13/19 23:24 Ambien - PO 10 mg HS PRN Administration INSOMNIA CBC, BMP 10/12/19 07:20 07/16/20 07:05 ASSESSMENT/PLAN: 63 year-old female with HTN, HLD, HIV, asthma (current smoker), and right knee osteoarthritis s/p right TKR on 10/10/[address] Ken Nicole. -POD #4 -PAIN CONTROL - PHYSICAL THERAPY -AWAITING NEW REHAB PLACEMENT - NO NEW POST OP LABS - no drain in place - encouraged incentive spirometry *Hypertension- BP stable -continue amlodipine, low normal likely from pain meds bp meds with parameters *Hyperlipidemia -continue statin *HIV -stable, continue Biktarvy *Asthma- stable -albuterol inhaler q6h *HYPONATREMIA - LIKELY FROM VOLUME CONTRACTION ENCOURAGED FLUIDS PO * ANEMIA - SECONDARY TO ACUTE BLOOD LOSS H/H STABLE ON 10/12/2019 *dvt prophy - on asa 81mg twice daily Pt has a calculated caprini score of 8 -- making her high risk and would strongly consider sq heparin RN notified Awaits placement Problem List - Problems (1) History of total right knee replacement Code(s): Z96.651 - PRESENCE OF RIGHT ARTIFICIAL KNEE JOINT (2) Anemia Code(s): D64.9 - ANEMIA, UNSPECIFIED Qualifiers: Other causes of anemia: acute posthemorrhagic Visit type - Emergency Visit Emergency Visit: Yes ED Registration Date: 10/10/19 Care time: The patient presented to the Emergency Department on the above date and was hospitalized for further evaluation of their emergent condition. - New Patient This patient is new to me today: Yes Date on this admission: 10/14/19 - Critical Care Critical Care patient: No
[2019-10-14] MEDS ORDERED: PT OWN MED DRAWER 7, Y5N ONE (09:32)
[2019-10-14] MEDS: BICTEGRAV/EMTRICIT/TENOFOV (BIKTARVY) 50-200-25 MG TABLET PO SCH (10:07)
[2019-10-14] MEDS: PANTOPRAZOLE 40 MG TABLET PO SCH (10:07)
[2019-10-14] MEDS: ASPIRIN 81 MG CHEWABLE TABLETS PO SCH ×2 (10:07→21:17)
[2019-10-14] MEDS: GABAPENTIN 300 MG CAPSULE PO SCH ×2 (10:07→21:17)
[2019-10-14] MEDS: amLODIPine BESYLATE 5 MG TABLET (FP) PO SCH (10:07)
[2019-10-14] MEDS: FERROUS SO4 325 MG TABLET (FP) PO SCH (10:07)
[2019-10-14] MEDS: CYCLOBENZAPRINE HCL 10 MG TABLET (FP) PO SCH (10:07)
[2019-10-14] MEDS: SENNOSIDES/DOCUSATE COMBO (SENNA PLUS) TABLET (UD) PO SCH ×2 (10:07→21:16)
[2019-10-14] MEDS: ATORVASTATIN CA 10 MG TABLET (FP) PO SCH (21:17)
[2019-10-14] MEDS: ZOLPIDEM TARTRATE 5 MG TABLET PO PRN (22:56)
[2019-10-15] MEDS: oxyCODONE HCL 5 MG TABLET PO PRN ×2 (03:32→11:13)
[2019-10-15] MEDS: oxyCODONE HCL 5 MG TABLET PO SCH ×2 (06:58→07:45)
[2019-10-15] MEDS ORDERED: oxyCODONE HCL 5 MG TABLET PO PRN ×2 (08:16→21:00)
[2019-10-15] MEDS ORDERED: PT OWN MED DRAWER 7, Y5N ONE (09:13)
[2019-10-15] MEDS: BICTEGRAV/EMTRICIT/TENOFOV (BIKTARVY) 50-200-25 MG TABLET PO SCH (09:28)
[2019-10-15] MEDS: FERROUS SO4 325 MG TABLET (FP) PO SCH (09:28)
[2019-10-15] MEDS: ASPIRIN 81 MG CHEWABLE TABLETS PO SCH (09:28)
[2019-10-15] MEDS: amLODIPine BESYLATE 5 MG TABLET (FP) PO SCH (09:29)
[2019-10-15] MEDS: CYCLOBENZAPRINE HCL 10 MG TABLET (FP) PO SCH (09:29)
[2019-10-15] MEDS: PANTOPRAZOLE 40 MG TABLET PO SCH (09:29)
[2019-10-15] MEDS: SENNOSIDES/DOCUSATE COMBO (SENNA PLUS) TABLET (UD) PO SCH (09:29)
[2019-10-15] MEDS: GABAPENTIN 300 MG CAPSULE PO SCH (09:29)
--- NOTE | 2019-10-15 15:19 | PN ---
"Physical Exam: SUBJECTIVE: Patient seen and examined OBJECTIVE: Vital Signs Period Temp Pulse Resp BP Sys/Johnson Pulse Ox Last 24 Hr 98.6 F-99.2 F 82-95 18-18 102-123/54-81 91-100 GENERAL: The patient is awake, alert, and fully oriented, in no acute distress. HEAD: Normal with no signs of trauma. EYES: PERRL, extraocular movements intact, sclera anicteric, conjunctiva clear. No ptosis. ENT: Ears normal, nares patent, oropharynx clear without exudates, moist mucous membranes. NECK: Trachea midline, full range of motion, supple. LUNGS: Breath sounds equal, clear to auscultation bilaterally, no wheezes, no crackles, no accessory muscle use. HEART: Regular rate and rhythm, S1, S2 without murmur, rub or gallop. ABDOMEN: Soft, nontender, nondistended, normoactive bowel sounds, no guarding, no rebound, no hepatosplenomegaly, no masses. EXTREMITIES: 2+ pulses, warm, well-perfused, no edema. NEUROLOGICAL: Cranial nerves II through XII grossly intact. Normal speech, gait not observed. PSYCH: Normal mood, normal affect. SKIN: Warm, dry, normal turgor, no rashes or lesions noted Active Medications Generic Name Dose Route Start Last Admin Trade Name Freq PRN Reason Stop Dose Admin Al Hydroxide/Mg Hydroxide 30 ml 10/10/19 15:12 Mylanta Oral Suspension - PO Q4H PRN DYSPEPSIA Albuterol Sulfate 2 puff 10/11/19 17:45 Ventolin Hfa Inhaler - IH Q6H PRN SHORTNESS OF BREATH Amlodipine Besylate 5 mg 10/11/19 10:00 10/15/19 09:29 Norvasc - PO 5 mg DAILY KELLIE Administration Aspirin 81 mg 10/10/19 22:00 10/15/19 09:28 Asa - PO 81 mg BID KELLIE Administration Atorvastatin Calcium 10 mg 10/10/19 22:00 10/14/19 21:17 Lipitor - PO 10 mg HS KELLIE Administration Bictegravir/Emtricitabine/Tenofovir 1 each 10/11/19 10:00 10/15/19 09:28 Biktarvy 50-200-25 Mg Tablet PO 1 each DAILY KELLIE Administration Cyclobenzaprine HCl 10 mg 10/11/19 10:00 10/15/19 09:29 Flexeril - PO 10 mg DAILY KELLIE Administration Ferrous Sulfate 325 mg 10/11/19 10:00 10/15/19 09:28 Feosol - PO 325 mg DAILY KELLIE Administration Gabapentin 300 mg 10/10/19 22:00 10/15/19 09:29 Neurontin - PO 300 mg BID KELLIE Administration Ketorolac Tromethamine 30 mg 10/11/19 01:40 10/12/19 12:12 Toradol Injection - IVPUSH 10/16/19 01:39 30 mg Q6H PRN Administration PAIN LEVEL 6-10 Magnesium Hydroxide 30 ml 10/10/19 15:12 Milk Of Magnesia - PO PRN PRN CONSTIPATION Ondansetron HCl 4 mg 10/10/19 15:12 Zofran Injection IVPUSH Q6H PRN NAUSEA Oxycodone HCl 5 mg 10/10/19 15:27 Roxicodone - PO Q3H PRN PAIN LEVEL 1-3 Oxycodone HCl 10 mg 10/10/19 15:27 10/15/19 11:13 Roxicodone - PO 10 mg Q3H PRN Administration PAIN LEVEL 4-6 Oxycodone HCl 30 mg 10/15/19 08:16 10/15/19 14:27 Roxicodone - PO 30 mg Q4HWA PRN Administration pain 7-10 Pantoprazole Sodium 40 mg 10/11/19 10:00 10/15/19 09:29 Protonix - PO 40 mg DAILY KELLIE Administration Senna/Docusate Sodium 2 tablet 10/10/19 22:00 10/15/19 09:29 Pericolace - PO 2 tablet BID KELLIE Administration Zolpidem Tartrate 10 mg 10/10/19 22:00 10/14/19 22:56 Ambien - PO 10 mg HS PRN Administration INSOMNIA ASSESSMENT/PLAN: The Drug Utilization Report below displays all of the controlled substance prescriptions, if any, that your patient has filled in the last twelve months. The information displayed on this report is compiled from pharmacy submissions to the Department, and accurately reflects the information as submitted by the pharmacies. This report was requested by: Toshia Gould | Reference #: [id number] Others' Prescriptions Patient Name: Linda Sawyer Date: 1955 Address: [address] [place] [address] Sex: Female Rx Written Rx Dispensed Drug Quantity Days Supply Prescriber Name Payment Method Dispenser 11/15/2018 11/16/2018 oxycodone hcl 30 mg tablet 60 15 Yari Gonzalez [facility] 11/15/2018 11/15/2018 zolpidem tartrate 5 mg tablet 5 5 Yari Gonzalez [facility] 11/01/2018 11/01/2018 zolpidem tartrate 5 mg tablet 14 14 Yari Gonzalez [facility] 10/30/2018 10/31/2018 oxycodone hcl 30 mg tablet 60 15 Yari Gonzalez [facility] Date: 1955 Address: [address] [place] [address] [place] [address] Sex: Female Rx Written Rx Dispensed Drug Quantity Days Supply Prescriber Name Payment Method Dispenser 09/30/2019 10/01/2019 zolpidem tartrate 10 mg tablet 30 30 Desvarieux, [employer]. 09/10/2019 09/24/2019 oxycodone hcl 30 mg tablet 120 30 Desvarieux, [employer]. 09/10/2019 09/24/2019 diazepam 10 mg tablet 60 30 Desvarieux, [employer]. 09/14/2019 09/14/2019 oxycodone hcl 20 mg tablet 60 15 Desvarieux, [employer]. 03/27/2019 08/27/2019 zolpidem tartrate 10 mg tablet 30 30 Robin Lares DO [employer]. 08/23/2019 08/23/2019 oxycodone hcl 30 mg tablet 120 30 Ken Nicole MS, MD [employer]. 08/23/2019 08/23/2019 diazepam 10 mg tablet 30 30 Ken Nicole MS, MD [employer]. 08/17/2019 08/17/2019 hydrocodone-acetaminophen 10-325 mg tablet 60 15 Desvarieux, [employer]. 07/27/2019 08/04/2019 zolpidem tartrate 10 mg tablet 30 30 Desvarieux, [employer]. 07/27/2019 07/27/2019 oxycodone hcl 30 mg tablet 120 30 Ken Nicole MS, MD [employer]. 07/27/2019 07/27/2019 diazepam 10 mg tablet 30 30 Ken Nicole MS, MD [employer]. 05/09/2019 07/13/2019 zolpidem tartrate 10 mg tablet 30 30 Luda Robin Jose John [employer]. 07/02/2019 07/02/2019 oxycodone hcl 30 mg tablet 120 30 Ken Nicole MS, MD [employer]. 07/02/2019 07/02/2019 diazepam 10 mg tablet 30 30 SheKen flaherty MS, MD [facility] [employer]. 05/09/2019 06/14/2019 [facility]pidem tartrate 10 mg tablet 30 [facility] 06/05/2019 06/05/2019 oxycodone hcl 30 mg tablet 120 30 SheKen flaherty MS, MD [employer]. 06/05/2019 06/05/2019 diazepam 10 mg tablet 30 30 SheKen flaherty MS, MD [employer]. 05/09/2019 05/14/2019 zolpidem tartrate 10 mg tablet 30 30 [facility]. 05/08/2019 05/09/2019 oxycodone hcl 30 mg tablet 120 30 SheKen flaherty MS, MD [employer]. 05/08/2019 05/08/2019 oxycodone hcl 30 mg tablet 5 2 Rima Lucia [employer]. 05/08/2019 05/08/2019 diazepam 10 mg tablet 30 30 Ken Nicole MS, MD [employer]. 03/27/2019 04/21/2019 zolpidem tartrate 10 mg tablet 30 30 Robin Lares John [employer]. 04/10/2019 04/10/2019 diazepam 10 mg tablet 30 30 Ken Nicole MS, MD [employer]. 04/10/2019 04/10/2019 oxycodone hcl 30 mg tablet 120 30 Ken Nicole MS, MD [employer]. 04/06/2019 04/06/2019 oxycodone hcl 30 mg tablet 12 3 Jeanine Layton M [employer]. 03/27/2019 03/27/2019 zolpidem tartrate 10 mg tablet 30 30 Robin Lares [employer]. 03/13/2019 03/14/2019 diazepam 10 mg tablet 30 30 Ken Nicole MS, MD [facility] 03/13/2019 03/13/2019 oxycodone hcl 30 mg tablet 120 30 Ken Nicole MS, MD [employer]. 03/09/2019 03/10/2019 oxycodone hcl 30 mg tablet 16 4 Fabricio Parsons L [employer]. 01/05/2019 02/27/2019 zolpidem tartrate 10 mg tablet 30 30 Robin Lares [employer]. 02/13/2019 02/14/2019 oxycodone hcl 30 mg tablet 120 30 Ken Nicole MS, MD [employer]. 02/12/2019 02/12/2019 oxycodone hcl 30 mg tablet 12 3 LudaAndreakym Alpesh [employer]. 02/05/2019 02/05/2019 oxycodone hcl 30 mg tablet 16 4 Fabricio Parsons L [employer]. 01/05/2019 01/31/2019 zolpidem tartrate 10 mg tablet 30 30 Robin Lares [employer]. 01/09/2019 01/13/2019 oxycodone hcl 30 mg tablet 120 30 Ken Nicole MS, MD [employer]. 01/09/2019 01/13/2019 diazepam 10 mg tablet 30 30 Ken Nicole MS, MD [employer]. 01/05/2019 01/05/2019 zolpidem tartrate 10 mg tablet 30 30 Robin Lares [employer]. 12/18/2018 12/19/2018 diazepam 10 mg tablet 30 30 Ken Nicole MS, MD [employer]. 12/18/2018 12/19/2018 oxycodone hcl 30 mg tablet 120 30 Ken Nicole MS, MD [employer]. 10/14/2018 12/13/2018 zolpidem tartrate 10 mg tablet 30 30 Robin Lares [employer]. 11/21/2018 11/21/2018 oxycodone hcl 30 mg tablet 120 30 Ken Nicole MS, MD [employer]. 11/21/2018 11/21/2018 diazepam 10 mg tablet 30 30 Ken Nicole MS, MD [employer]. 10/14/2018 11/18/2018 zolpidem tartrate 10 mg tablet 30 30 Robin Lares DO [employer]. 10/16/2018 10/16/2018 diazepam 10 mg tablet 30 30 Ken Nicole MS, MD [employer]. 10/16/2018 10/16/2018 oxycodone hcl 30 mg tablet 120 30 Ken Nicole MS, MD [employer] Information. no objective signs of pain reduce dose oxycodone PO to 30mg q6h x 4 doses d/c nate, poses risk of falls"
--- NOTE | 2019-10-15 16:35 | DS ---
"Physical Exam: SUBJECTIVE: Patient seen and examined. Doing well with PT. OBJECTIVE: Vital Signs Period Temp Pulse Resp BP Sys/Johnson Pulse Ox Last 24 Hr 98.6 F-99.2 F 82-95 18-18 102-123/54-81 91-100 PHYSICAL EXAM GENERAL: A&Ox3, in no apparent distress LUNGS: CTA HEART: Regular rate and rhythm, S1, S2 LLE: surgical dressing c/d/i, +flex/extend toes, sensory intact NEUROLOGICAL: Cranial nerves II through XII grossly intact. Normal speech LABS CBCD WBC 8.8 K/mm3 (4.0-10.8) 10/12/19 07:20 RBC 3.15 M/mm3 (3.60-5.2) L 10/12/19 07:20 Hgb 10.0 GM/dl (10.7-15.3) L 10/12/19 07:20 Hct 30.5 % (32.4-45.2) L 10/12/19 07:20 MCV 96.9 fl (80-96) H 10/12/19 07:20 MCHC 32.7 g/dl (32.0-36.0) 10/12/19 07:20 RDW 13.7 % (11.6-15.6) 10/12/19 07:20 Plt Count 214 K/MM3 (134-434) 10/12/19 07:20 MPV 7.5 fl (7.5-11.1) 10/12/19 07:20 CMP Sodium 135 mmol/L (136-145) L 10/11/19 07:05 Potassium 3.9 mmol/L (3.5-5.1) 10/11/19 07:05 Chloride 98 mmol/L (98-107) 10/11/19 07:05 Carbon Dioxide 25 mmol/L (21-32) 10/11/19 07:05 Anion Gap 12 MMOL/L (8-16) 10/11/19 07:05 BUN 15.0 mg/dl (7-18) 10/11/19 07:05 Creatinine 1.0 mg/dl (0.55-1.3) 10/11/19 07:05 Calcium 8.3 mg/dl (8.5-10) L 10/11/19 07:05 HOSPITAL COURSE: Date of Admission:10/10/19 Date of Discharge: 10/15/19 63 year-old female with a PMH significant for HTN, HLD, HIV, asthma (current smoker), and right knee osteoarthritis s/p right total knee replacement on 10/10/[address] Ken Nicole. --perioperative antibiotics complete --pain well-managed with PO meds --ASA 81mg BID x 6 weeks --discharge was delayed due to insurance issues COVID negative collected 10/07/19 Hypertension --continued amlodipine Hyperlipidemia --continued statin HIV --stable, continued Biktarvy Asthma --stable ISTOP The Drug Utilization Report below displays all of the controlled substance prescriptions, if any, that your patient has filled in the last twelve months. The information displayed on this report is compiled from pharmacy submissions to the Department, and accurately reflects the information as submitted by the pharmacies. This report was requested by: Toshia Gould | Reference #: [id number] Others' Prescriptions Patient Name: Linda Sawyer Date: 1955 Address: [address] [place] [id number] Sex: Female Rx Written Rx Dispensed Drug Quantity Days Supply Prescriber Name Payment Method Dispenser 11/15/2018 11/16/2018 oxycodone hcl 30 mg tablet 60 15 Carlos, Yari Tendayi [employer] [facility] 11/15/2018 11/15/2018 zolpidem tartrate 5 mg tablet 5 5 Carlos, Yari Tendayi [facility] 11/01/2018 11/01/2018 zolpidem tartrate 5 mg tablet 14 14 Carlos, Yari Tendayi [facility] 10/30/2018 10/31/2018 oxycodone hcl 30 mg tablet 60 15 Carlos, Yari Tendayi [facility] Date: 1955 Address: [address] [place] [address] Sex: Female Rx Written Rx Dispensed Drug Quantity Days Supply Prescriber Name Payment Method Dispenser 09/30/2019 10/01/2019 zolpidem tartrate 10 mg tablet 30 30 Desvarieux, Rayne [facility] 09/10/2019 09/24/2019 oxycodone hcl 30 mg tablet 120 30 Desvarieux, Rayne [employer] [facility] 09/10/2019 09/24/2019 diazepam 10 mg tablet 60 30 Desvarieux, Rayne [employer]. 09/14/2019 09/14/2019 oxycodone hcl 20 mg tablet 60 15 Desvarieux, Rayne [employer]. 03/27/2019 08/27/2019 zolpidem tartrate 10 mg tablet 30 30 Robin Lares [employer]. 08/23/2019 08/23/2019 oxycodone hcl 30 mg tablet 120 30 SheKen flaherty MS, MD [employer]. 08/23/2019 08/23/2019 diazepam 10 mg tablet 30 30 SheKen flaherty MS, MD [employer]. 08/17/2019 08/17/2019 hydrocodone-acetaminophen 10-325 mg tablet 60 15 Desvarieux, [employer]. 07/27/2019 08/04/2019 zolpidem tartrate 10 mg tablet 30 30 Desvarieux, Rayne [employer]. 07/27/2019 07/27/2019 oxycodone hcl 30 mg tablet 120 30 SheKen flaherty MS, MD [employer]. 07/27/2019 07/27/2019 diazepam 10 mg tablet 30 30 SheKen flaherty MS, MD [facility] [employer] 05/09/2019 07/13/2019 zolpidem tartrate 10 mg tablet 30 30 Robin Lares [employer]. 07/02/2019 07/02/2019 oxycodone hcl 30 mg tablet 120 30 SheKen flaherty MS, MD [employer]. 07/02/2019 07/02/2019 diazepam 10 mg tablet 30 30 SheKen flaherty MS, MD [employer]. 05/09/2019 06/14/2019 zolpidem tartrate 10 mg tablet 30 30 Robin Lares [employer]. 06/05/2019 06/05/2019 oxycodone hcl 30 mg tablet 120 30 SheKen flaherty MS, MD [employer]. 06/05/2019 06/05/2019 diazepam 10 mg tablet 30 30 SheKen flaherty MS, MD [employer]. 05/09/2019 05/14/2019 zolpidem tartrate 10 mg tablet 30 30 Robin Lares DO [employer]. 05/08/2019 05/09/2019 oxycodone hcl 30 mg tablet 120 30 Ken Nicole MS, MD [employer]. 05/08/2019 05/08/2019 oxycodone hcl 30 mg tablet 5 2 Rea Rima [employer]. 05/08/2019 05/08/2019 diazepam 10 mg tablet 30 30 Ken Nicole MS, MD [employer]. 03/27/2019 04/21/2019 zolpidem tartrate 10 mg tablet 30 30 Robin Lares DO [employer]. 04/10/2019 04/10/2019 diazepam 10 mg tablet 30 30 Ken Nicole MS, MD [employer]. 04/10/2019 04/10/2019 oxycodone hcl 30 mg tablet 120 30 [facility] MS, [facility] 04/06/2019 04/06/2019 oxycodone hcl 30 mg tablet 12 3 Jeanine Layton M [employer]. 03/27/2019 03/27/2019 zolpidem tartrate 10 mg tablet 30 30 Robin Lares DO [employer]. 03/13/2019 03/14/2019 diazepam 10 mg tablet 30 30 Ken Nicole MS, MD [employer]. 03/13/2019 03/13/2019 oxycodone hcl 30 mg tablet 120 30 Ken Nicole MS, MD [employer]. 03/09/2019 03/10/2019 oxycodone hcl 30 mg tablet 16 4 Fabricio Parsons L [employer]. 01/05/2019 02/27/2019 zolpidem tartrate 10 mg tablet 30 30 Robin Lares DO [employer]. 02/13/2019 02/14/2019 oxycodone hcl 30 mg tablet 120 30 Ken Nicole MS, MD [employer]. 02/12/2019 02/12/2019 oxycodone hcl 30 mg tablet 12 3 Brittney Lares [employer]. 02/05/2019 02/05/2019 oxycodone hcl 30 mg tablet 16 4 Fabricio ParsonsMarissa [employer]. 01/05/2019 01/31/2019 zolpidem tartrate 10 mg tablet 30 30 [employer] 01/09/2019 01/13/2019 oxycodone hcl 30 mg tablet 120 30 Ken Nicole MS, MD [employer]. 01/09/2019 01/13/2019 diazepam 10 mg tablet 30 30 Ken Nicole MS, MD [employer]. 01/05/2019 01/05/2019 zolpidem tartrate 10 mg tablet 30 30 Robin Lares [employer] 12/18/2018 12/19/2018 diazepam 10 mg tablet 30 30 Ken Nicole MS, MD [employer]. 12/18/2018 12/19/2018 oxycodone hcl 30 mg tablet 120 30 Ken Nicole MS, MD [employer]. 10/14/2018 12/13/2018 zolpidem tartrate 10 mg tablet 30 30 Luda [employer]. 11/21/2018 11/21/2018 oxycodone hcl 30 mg tablet 120 30 Ken Nicole MS, MD [employer]. 11/21/2018 11/21/2018 diazepam 10 mg tablet 30 30 Ken Nicole MS, MD [employer]. 10/14/2018 11/18/2018 zolpidem tartrate 10 mg tablet 30 30 Luda [employer] 10/16/2018 10/16/2018 diazepam 10 mg tablet 30 30 Ken Nicole MS, MD [employer]. 10/16/2018 10/16/2018 oxycodone hcl 30 mg tablet 120 30 Ken Nicole MS, MD [employer]. Minutes to complete discharge: 35 Discharge Summary Problems reviewed: Yes Reason For Visit: OSTEOARTHRITIS RIGHT KNEE Current Active Problems Anemia (Acute) History of total right knee replacement (Acute) Condition: Improved - Instructions Diet, Activity, Other Instructions: Dr. Nicole Discharge Instructions for Knee Replacement Post Operative Instructions Physical activity Physical Therapist will come to your home for the first 5 days. You will be set up with outpatient PT at your first post-operative visit. Use assistive devices for ambulation at all times. Weight bearing as tolerated on your surgical side. Do not put pillow under knee. May put pillow under heel. Wound care Leave your surgical dressing in place. Do not change the dressing until seen by your surgeon in the office. No baths or showers. Do not submerge your incision. Do not apply any ointments or lotions to your incision. Please call the office if your dressing is soiled/dirty or is falling off. Apply Graduated Compression Stockings (TEDS) to both lower extremities - remove daily for hygiene ONLY. Diet There are no dietary restrictions. Eat healthy, high-fiber foods. Drink 6 to 8 glasses of liquid each day. This will assist in keeping your bowels are regular. Pain management Any pain prescription medication ordered should be taken as prescribed for moderate to severe pain. Do not take additional Tylenol while taking Percocet. Take Aspirin 81 mg two times a day for a total of 6 weeks to prevent blood clots. Call Dr. Nicole for any of the following: Severe pain not relieved by medication Fever of 101 or higher Excessive bleeding or drainage on dressing Inability to urinate If you experience chest pain or shortness of breath, please seek emergency care immediately. Please call the office at to confirm your post-op appointment for the week following surgery. Disposition: [facility] - Home Medications Comprehensive Discharge Medication List: Ambulatory Orders Amlodipine Besylate 5 mg PO DAILY 03/31/18 Cyclobenzaprine HCl 10 mg PO DAILY 03/31/18 Zolpidem Tartrate [Ambien] 10 mg PO HS 03/31/18 Albuterol Sulfate [Proair Hfa] 8.5 gm IH ASDIR PRN 06/02/18 Simvastatin 10 mg PO HS 10/18/18 Ferrous Sulfate [Feosol] 325 mg PO DAILY ud 10/27/18 Gabapentin [Neurontin -] 300 mg PO BID capsule 10/27/18 Multivitamins [Multivit ([facility] Formulary)] 1 tab PO DAILY tab 10/27/18 Pantoprazole Sodium [Protonix -] 40 mg PO DAILY tablet.ec 10/27/18 Sennosides/Docusate Sodium [Pericolace -] 2 tablet PO BID tablet 10/27/18 Bictegrav/Emtricit/Tenofov Ala [Biktarvy 50-200-25 mg Tablet] 1 each PO DAILY 11/11/18 Aspirin [ASA -] 81 mg PO BID tab.chew 10/12/19 This patient is new to me today: No Emergency Visit: No Critical Care patient: No - Discharge Referral Referred to [facility] Med P.C.: No"
[2019-10-15] MEDS ORDERED: oxyCODONE HCL 5 MG TABLET PO ONE (18:30)
[2019-10-15 20:40] VITALS: BP 124/62; PULSE 72; TEMP 98.2
== END 2019-10-15 20:15 | DRG 470 ==
LOC: FM/S 08:51
PROVIDERS: ADMIT Orthopaedic Surgery Orthopaedic Surgery of the Spine; ATTEND Nurse Practitioner Acute Care
PROC: 0SRC0J9 Replacement of Right Knee Joint with Synthetic Substitute, Cemented, Open Approach (ICD-10-PCS; principal; 2019-10-10 12:34)
DX: M17.11 Unilateral primary osteoarthritis, right knee (principal); E87.1 Hypo-osmolality and hyponatremia; D62 Acute posthemorrhagic anemia; Z21 Asymptomatic human immunodeficiency virus [HIV] infection status; M21.061 Valgus deformity, not elsewhere classified, right knee; E78.5 Hyperlipidemia, unspecified; I10 Essential (primary) hypertension; J45.909 Unspecified asthma, uncomplicated; F17.210 Nicotine dependence, cigarettes, uncomplicated
CPT/HCPCS: 36415; 73560-TC-RT-FY; 80048; 85027; 88305-TC; 88311-TC; 94760; 97010-GP; 97116-GP; 97163-GP

== ENCOUNTER 2021-02-23 16:44 | Inpatient (IN) | payer OTHER ==
[2021-02-25] MEDS ORDERED: DEXAMETHASONE SOD PHOSPHATE 4 MG/1 ML VIAL ONE (09:14)
[2021-02-25] MEDS ORDERED: ONDANSETRON 4 MG/2 ML VIAL ONE (09:14)
[2021-02-25] MEDS ORDERED: TRANEXAMIC ACID 1000 MG/10 ML VIAL ONE ×2 (09:14→14:45)
[2021-02-25] MEDS ORDERED: fentaNYL CITRATE 250 MCG/5 ML VIAL ONE (09:14)
[2021-02-25] MEDS ORDERED: ROCURONIUM BROMIDE 50 MG/5 ML SYRINGE ONE ×3 (09:14→18:16)
[2021-02-25] MEDS ORDERED: LIDOCAINE HCL/PF 2% SDV 5ML VIAL ONE (09:14)
[2021-02-25] MEDS ORDERED: ceFAZolin SODIUM 1 GM VIAL ONE ×3 (09:14→22:10)
[2021-02-25] MEDS ORDERED: PROPOFOL 20 ML ONE ×2 (09:14→20:16)
[2021-02-25] MEDS ORDERED: MIDAZOLAM HCL 2 MG/2 ML SINGLE DOSE VIAL ONE ×2 (09:15)
[2021-02-25] MEDS ORDERED: MORPHINE 5 MG/10 ML AMP - FOR COMPOUNDING USE ONLY ONE (09:15)
[2021-02-25] MEDS ORDERED: VANCOMYCIN 1,000 MG VIAL (RESTRICTED TO ID ONLY) ONE ×2 (09:16→11:05)
[2021-02-25] MEDS ORDERED: KETAMINE HCL 200 MG/20 ML VIAL ONE (10:42)
[2021-02-25] MEDS ORDERED: ACETAMINOPHEN INJECTION 100 ML IVPB ONE (11:50)
[2021-02-25] MEDS ORDERED: VANCOMYCIN 1,000 MG VIAL (RESTRICTED TO ID ONLY) IVPB ONE (13:02)
[2021-02-25] MEDS ORDERED: ceFAZolin SODIUM 1 GM VIAL IVPB ONE ×2 (13:30→22:00)
[2021-02-25] MEDS ORDERED: HYDROmorphone HCl 2 MG/ML VIAL ONE ×2 (14:12→19:39)
[2021-02-25 17:11] LABS: HEMATOCRIT 32.6 % (32.4-45.2); MCH 32.8 pg (25.7-33.7); MCHC 33.6 g/dl (32.0-36.0); MEAN CELL VOLUME 97.5 fl (80-96); MEAN PLT VOLUME 7.1 fl (7.5-11.1); PLATELET COUNT 211 10^3/uL (134-434); RBC 3.35 M/mm3 (3.60-5.2); RDW 14.9 % (11.6-15.6); WHITE BLOOD COUNT 9.7 K/mm3 (4.0-10.0)
[2021-02-25] MEDS ORDERED: SEVOFLURANE 250 ML BTL ONE (18:35)
[2021-02-25] MEDS ORDERED: GLYCOPYRROLATE 0.2 MG/1 ML VIAL ONE ×2 (20:08)
[2021-02-25] MEDS ORDERED: NEOSTIGMINE METHYLSULFATE 0.5 MG/1 ML - 10 ML MDV ONE (20:08)
[2021-02-25] MEDS ORDERED: ALBUTEROL SO4 HFA INHALER IH PRN (21:29)
[2021-02-25] MEDS ORDERED: PATIENT'S OWN MEDICATION (NON-FORMULARY) (Oxycodone Hcl [Oxycontin] 30 MG Tab.Er.12h) PO PRN (21:29)
[2021-02-25] MEDS ORDERED: diazePAM 5 MG TABLET PO PRN (21:29)
[2021-02-25] MEDS ORDERED: ZOLPIDEM TARTRATE 5 MG TABLET PO PRN (21:29)
[2021-02-25] MEDS ORDERED: MAGNESIUM HYDROX 2400MG/30ML ORAL SUSPENSION 30 ML CUP PO PRN (21:30)
[2021-02-25] MEDS ORDERED: MAG HYDROX/AL HYDROX/SIMETH 30 ML UNIT-DOSE CUP PO PRN (21:30)
[2021-02-25] MEDS ORDERED: ONDANSETRON 4 MG/2 ML VIAL IVPUSH PRN (21:30)
[2021-02-25] MEDS ORDERED: LACTATED RINGERS SOLUTION 1,000 ML IV SCH (21:30)
[2021-02-25] MEDS ORDERED: HYDROmorphone *PCA* 10MG/50ML DISP.SYRIN ONE (21:37)
[2021-02-25] MEDS ORDERED: HYDROmorphone *PCA* 6MG/30ML DISP.SYRIN PCA SCH (21:45)
[2021-02-25] MEDS ORDERED: HYDROmorphone *PCA* 10MG/50ML DISP.SYRIN PCA ONE (22:00)
[2021-02-25] MEDS ORDERED: ASPIRIN 325 MG TABLET PO SCH (22:00)
[2021-02-25] MEDS: CEFAZOLIN 2 GM in DEXTROSE 5%-WATER 100 ML IVPB SCH (22:50)
[2021-02-25] MEDS: SENNOSIDES/DOCUSATE COMBO (SENNA PLUS) TABLET (UD) PO SCH (23:21)
[2021-02-25] MEDS: ASPIRIN 81 MG CHEWABLE TABLETS PO SCH (23:22)
[2021-02-25] MEDS: HYDROmorphone *PCA* 10MG/50ML DISP.SYRIN PCA SCH (23:23)
[2021-02-26] MEDS: CEFAZOLIN 2 GM in DEXTROSE 5%-WATER 100 ML IVPB SCH ×4 (03:27→21:06)
[2021-02-26] MEDS ORDERED: PCA PUMP NR ONE ×3 (06:18→17:36)
[2021-02-26] MEDS: HYDROmorphone *PCA* 10MG/50ML DISP.SYRIN PCA SCH ×4 (06:31→21:12)
[2021-02-26] MEDS ORDERED: LACTATED RINGERS SOLUTION 1,000 ML/1,000 ML INFUS.BAG IV SCH (09:15)
[2021-02-26] MEDS ORDERED: PT OWN MED DRAWER 7, Y5N ONE (09:45)
[2021-02-26] MEDS ORDERED: DEXTROSE 5%-WATER 100 ML IVPB ONE ×3 (09:46→20:18)
[2021-02-26] MEDS ORDERED: ceFAZolin SODIUM 1 GM VIAL ONE ×3 (09:46→20:17)
[2021-02-26] MEDS: ASPIRIN 81 MG CHEWABLE TABLETS PO SCH ×2 (09:50→21:07)
[2021-02-26] MEDS: SENNOSIDES/DOCUSATE COMBO (SENNA PLUS) TABLET (UD) PO SCH ×2 (09:50→21:08)
[2021-02-26] MEDS: MUPIROCIN 2% TOPICAL OINTMENT FOR DECOLONIZATION NS SCH ×2 (09:51→21:09)
[2021-02-26] MEDS ORDERED: BICTEGRAV/EMTRICIT/TENOFOV (BIKTARVY) 50-200-25 MG TABLET PO SCH (10:00)
[2021-02-26] MEDS ORDERED: CELECOXIB 200 MG CAPSULE PO SCH (10:00)
[2021-02-26] MEDS ORDERED: amLODIPine BESYLATE 5 MG TABLET (FP) PO SCH (10:00)
[2021-02-26] MEDS ORDERED: PANTOPRAZOLE 40 MG TABLET PO SCH ×2 (10:00)
[2021-02-26 10:37] LABS: HEMATOCRIT 31.2 % (32.4-45.2); HEMOGLOBIN 10.3 GM/dL (10.7-15.3); MCH 32.8 pg (25.7-33.7); MCHC 33.1 g/dl (32.0-36.0); MEAN CELL VOLUME 99.2 fl (80-96); MEAN PLT VOLUME 7.2 fl (7.5-11.1); PLATELET COUNT 184 10^3/uL (134-434); RBC 3.14 M/mm3 (3.60-5.2); RDW 15.1 % (11.6-15.6); WHITE BLOOD COUNT 11.1 K/mm3 (4.0-10.0)
[2021-02-26 12:08] LABS: CALCIUM 7.8 mg/dL (8.5-10.1); MAGNESIUM 1.8 mg/dL (1.8-2.4)
[2021-02-26 12:12] LABS: CREATININE 0.9 mg/dL (0.55-1.3)
[2021-02-26 12:18] LABS: BLOOD UREA NITROGEN 14.2 mg/dL (7-18)
[2021-02-26 17:13] LABS: HIV INTERPRETATION PRESUMPTIVE POSITIVE (NEGATIVE)
[2021-02-26] MEDS: LACTATED RINGERS SOLUTION 1,000 ML/1,000 ML INFUS.BAG IV SCH (19:00)
[2021-02-26] MEDS ORDERED: PATIENT'S OWN MEDICATION (NON-FORMULARY) (Oxycodone Hcl [Oxycontin] 30 MG) PO PRN (19:07)
[2021-02-26] MEDS ORDERED: ONDANSETRON 4 MG/2 ML VIAL IVPUSH PRN (19:07)
[2021-02-26] MEDS ORDERED: MAG HYDROX/AL HYDROX/SIMETH 30 ML UNIT-DOSE CUP PO PRN (19:07)
[2021-02-26] MEDS: ZOLPIDEM TARTRATE 5 MG TABLET PO PRN (21:06)
[2021-02-26] MEDS: CHLORHEXIDINE GLUCONATE 4% CLEANSER FOR DECOLONIZATION TP SCH (21:07)
[2021-02-26] MEDS: CELECOXIB 200 MG CAPSULE PO SCH (21:07)
[2021-02-26] MEDS: ATORVASTATIN CA 10 MG TABLET (FP) PO SCH (21:08)
[2021-02-26] MEDS ORDERED: CHLORHEXIDINE GLUCONATE 4% CLEANSER FOR DECOLONIZATION TP SCH (22:00)
[2021-02-26] MEDS ORDERED: ATORVASTATIN CA 10 MG TABLET (FP) PO SCH (22:00)
[2021-02-27] MEDS: CEFAZOLIN 2 GM in DEXTROSE 5%-WATER 100 ML IVPB SCH ×3 (03:09→10:12)
[2021-02-27] MEDS: LACTATED RINGERS SOLUTION 1,000 ML/1,000 ML INFUS.BAG IV SCH ×2 (06:12→21:03)
[2021-02-27 07:38] LABS: HEMATOCRIT 26.2 % (32.4-45.2); HEMOGLOBIN 8.8 GM/dL (10.7-15.3); MCHC 33.5 g/dl (32.0-36.0); MEAN CELL VOLUME 98.5 fl (80-96); MEAN PLT VOLUME 7.5 fl (7.5-11.1); PLATELET COUNT 176 10^3/uL (134-434); RBC 2.66 M/mm3 (3.60-5.2); RDW 15.5 % (11.6-15.6); WHITE BLOOD COUNT 16.5 K/mm3 (4.0-10.0)
[2021-02-27] MEDS ORDERED: PT OWN MED DRAWER 7, Y5N ONE (09:14)
[2021-02-27] MEDS ORDERED: ceFAZolin SODIUM 1 GM VIAL ONE (09:14)
[2021-02-27] MEDS ORDERED: DEXTROSE 5%-WATER 100 ML IVPB ONE (09:14)
[2021-02-27] MEDS: SENNOSIDES/DOCUSATE COMBO (SENNA PLUS) TABLET (UD) PO SCH ×2 (10:13→21:51)
[2021-02-27] MEDS: CELECOXIB 200 MG CAPSULE PO SCH ×2 (10:13→21:52)
[2021-02-27] MEDS: amLODIPine BESYLATE 5 MG TABLET (FP) PO SCH (10:13)
[2021-02-27] MEDS: ASPIRIN 81 MG CHEWABLE TABLETS PO SCH ×2 (10:13→21:52)
[2021-02-27] MEDS: PANTOPRAZOLE 40 MG TABLET PO SCH (10:15)
[2021-02-27] MEDS: MUPIROCIN 2% TOPICAL OINTMENT FOR DECOLONIZATION NS SCH ×3 (10:16→21:53)
[2021-02-27] MEDS: BICTEGRAV/EMTRICIT/TENOFOV (BIKTARVY) 50-200-25 MG TABLET PO SCH (10:17)
[2021-02-27] MEDS ORDERED: PCA PUMP NR ONE (11:13)
[2021-02-27] MEDS: HYDROmorphone *PCA* 10MG/50ML DISP.SYRIN PCA SCH ×2 (11:23→20:58)
[2021-02-27 12:43] VITALS: BMI 40.3
[2021-02-27] MEDS: ZOLPIDEM TARTRATE 5 MG TABLET PO PRN (21:51)
[2021-02-27] MEDS: ATORVASTATIN CA 10 MG TABLET (FP) PO SCH (21:52)
[2021-02-27] MEDS: CHLORHEXIDINE GLUCONATE 4% CLEANSER FOR DECOLONIZATION TP SCH (21:55)
[2021-02-28] MEDS ORDERED: PT OWN MED DRAWER 7, Y5N ONE ×2 (09:49→21:23)
[2021-02-28] MEDS: ASPIRIN 81 MG CHEWABLE TABLETS PO SCH ×2 (09:51→21:26)
[2021-02-28] MEDS: amLODIPine BESYLATE 5 MG TABLET (FP) PO SCH (09:51)
[2021-02-28] MEDS: CELECOXIB 200 MG CAPSULE PO SCH ×2 (09:52→21:26)
[2021-02-28] MEDS: PANTOPRAZOLE 40 MG TABLET PO SCH (09:52)
[2021-02-28] MEDS: SENNOSIDES/DOCUSATE COMBO (SENNA PLUS) TABLET (UD) PO SCH ×2 (09:52→21:26)
[2021-02-28] MEDS: MUPIROCIN 2% TOPICAL OINTMENT FOR DECOLONIZATION NS SCH ×2 (09:53→21:26)
[2021-02-28] MEDS: BICTEGRAV/EMTRICIT/TENOFOV (BIKTARVY) 50-200-25 MG TABLET PO SCH (09:53)
[2021-02-28 12:57] LABS: BASO % 0.2 % (0-2.0); EOS % 0.7 % (0-4.5); HEMATOCRIT 24.9 % (32.4-45.2); HEMOGLOBIN 8.4 GM/dL (10.7-15.3); LYMPH % 12.4 % (8-40); MCH 33.4 pg (25.7-33.7); MCHC 33.6 g/dl (32.0-36.0); MEAN CELL VOLUME 99.6 fl (80-96); MEAN PLT VOLUME 7.4 fl (7.5-11.1); MONO % 4.2 % (3.8-10.2); NEUT % 82.5 % (42.8-82.8); PLATELET COUNT 183 10^3/uL (134-434); RDW 14.8 % (11.6-15.6); WHITE BLOOD COUNT 12.5 K/mm3 (4.0-10.0)
[2021-02-28 13:14] LABS: CALCIUM 7.7 mg/dL (8.5-10.1)
[2021-02-28 13:15] LABS: ALBUMIN 1.6 g/dl (3.4-5.0); BLOOD UREA NITROGEN 10.2 mg/dL (7-18)
[2021-02-28 13:18] LABS: CREATININE 0.7 mg/dL (0.55-1.3)
[2021-02-28 13:20] LABS: BILIRUBIN,TOTAL 0.4 mg/dL (0.2-1); TOT PROT 5.4 g/dl (6.4-8.2)
[2021-02-28] MEDS: LACTATED RINGERS SOLUTION 1,000 ML/1,000 ML INFUS.BAG IV SCH ×2 (13:52→21:25)
[2021-02-28] MEDS ORDERED: PCA PUMP NR ONE (17:50)
[2021-02-28] MEDS: HYDROmorphone *PCA* 10MG/50ML DISP.SYRIN PCA SCH (17:59)
[2021-02-28] MEDS: ALBUTEROL SO4 HFA INHALER IH PRN (21:26)
[2021-02-28] MEDS: ZOLPIDEM TARTRATE 5 MG TABLET PO PRN (21:26)
[2021-02-28] MEDS: ATORVASTATIN CA 10 MG TABLET (FP) PO SCH (21:26)
[2021-02-28] MEDS: CHLORHEXIDINE GLUCONATE 4% CLEANSER FOR DECOLONIZATION TP SCH (21:26)
[2021-03-01 07:41] LABS: BASO % 0.2 % (0-2.0); EOS % 1.7 % (0-4.5); HEMATOCRIT 22.2 % (32.4-45.2); HEMOGLOBIN 7.5 GM/dL (10.7-15.3); LYMPH % 17.4 % (8-40); MCH 33.7 pg (25.7-33.7); MCHC 33.8 g/dl (32.0-36.0); MEAN CELL VOLUME 99.8 fl (80-96); MEAN PLT VOLUME 8.1 fl (7.5-11.1); MONO % 5.3 % (3.8-10.2); NEUT % 75.4 % (42.8-82.8); PLATELET COUNT 180 10^3/uL (134-434); RBC 2.22 M/mm3 (3.60-5.2); RDW 15.2 % (11.6-15.6); WHITE BLOOD COUNT 9.8 K/mm3 (4.0-10.0)
[2021-03-01 07:52] LABS: ALBUMIN 1.4 g/dl (3.4-5.0); BLOOD UREA NITROGEN 10.2 mg/dL (7-18); CALCIUM 7.2 mg/dL (8.5-10.1); MAGNESIUM 1.9 mg/dL (1.8-2.4)
[2021-03-01 07:55] LABS: CREATININE 0.7 mg/dL (0.55-1.3)
[2021-03-01 07:57] LABS: BILIRUBIN,TOTAL 0.3 mg/dL (0.2-1); TOT PROT 4.9 g/dl (6.4-8.2)
[2021-03-01] MEDS ORDERED: POTASSIUM CHLORIDE TABS 20 MEQ TABLET.ER (FP) PO ONE (08:25)
[2021-03-01] MEDS ORDERED: PCA PUMP NR ONE ×3 (10:37→18:07)
[2021-03-01] MEDS ORDERED: PT OWN MED DRAWER 7, Y5N ONE ×3 (10:38→21:12)
[2021-03-01] MEDS: BICTEGRAV/EMTRICIT/TENOFOV (BIKTARVY) 50-200-25 MG TABLET PO SCH (10:49)
[2021-03-01] MEDS: diazePAM 5 MG TABLET PO PRN (10:49)
[2021-03-01] MEDS: ASPIRIN 81 MG CHEWABLE TABLETS PO SCH ×2 (10:49→21:16)
[2021-03-01] MEDS: CELECOXIB 200 MG CAPSULE PO SCH ×2 (10:49→21:17)
[2021-03-01] MEDS: LACTATED RINGERS SOLUTION 1,000 ML/1,000 ML INFUS.BAG IV SCH ×2 (10:50→18:24)
[2021-03-01] MEDS: amLODIPine BESYLATE 5 MG TABLET (FP) PO SCH (10:50)
[2021-03-01] MEDS: PANTOPRAZOLE 40 MG TABLET PO SCH (10:50)
[2021-03-01] MEDS: SENNOSIDES/DOCUSATE COMBO (SENNA PLUS) TABLET (UD) PO SCH ×2 (10:50→21:17)
[2021-03-01] MEDS: MUPIROCIN 2% TOPICAL OINTMENT FOR DECOLONIZATION NS SCH ×2 (10:55→21:17)
[2021-03-01 15:43] LABS: HEMATOCRIT 22.1 % (32.4-45.2); HEMOGLOBIN 7.4 GM/dL (10.7-15.3); MCH 33.1 pg (25.7-33.7); MCHC 33.4 g/dl (32.0-36.0); MEAN CELL VOLUME 99.1 fl (80-96); MEAN PLT VOLUME 7.2 fl (7.5-11.1); PLATELET COUNT 194 10^3/uL (134-434); RBC 2.23 M/mm3 (3.60-5.2); RDW 14.8 % (11.6-15.6); WHITE BLOOD COUNT 9.4 K/mm3 (4.0-10.0)
[2021-03-01] MEDS: HYDROmorphone *PCA* 10MG/50ML DISP.SYRIN PCA SCH ×2 (17:38→19:17)
[2021-03-01] MEDS: ZOLPIDEM TARTRATE 5 MG TABLET PO PRN (21:16)
[2021-03-01] MEDS: CHLORHEXIDINE GLUCONATE 4% CLEANSER FOR DECOLONIZATION TP SCH (21:17)
[2021-03-01] MEDS: ATORVASTATIN CA 10 MG TABLET (FP) PO SCH (21:17)
[2021-03-02 07:11] LABS: BASO % 0.3 % (0-2.0); EOS % 3.7 % (0-4.5); HEMATOCRIT 20.7 % (32.4-45.2); LYMPH % 24.6 % (8-40); MCH 33.7 pg (25.7-33.7); MEAN CELL VOLUME 99.1 fl (80-96); MEAN PLT VOLUME 7.5 fl (7.5-11.1); NEUT % 64.4 % (42.8-82.8); PLATELET COUNT 206 10^3/uL (134-434); RBC 2.09 M/mm3 (3.60-5.2); RDW 15.3 % (11.6-15.6); WHITE BLOOD COUNT 7.6 K/mm3 (4.0-10.0)
[2021-03-02 07:22] LABS: CALCIUM 7.1 mg/dL (8.5-10.1)
[2021-03-02 07:23] LABS: ALBUMIN 1.3 g/dl (3.4-5.0); BLOOD UREA NITROGEN 10.1 mg/dL (7-18); MAGNESIUM 1.9 mg/dL (1.8-2.4)
[2021-03-02 07:26] LABS: CREATININE 0.7 mg/dL (0.55-1.3)
[2021-03-02 07:28] LABS: BILIRUBIN,TOTAL 0.4 mg/dL (0.2-1); TOT PROT 4.9 g/dl (6.4-8.2)
[2021-03-02] MEDS: ASPIRIN 81 MG CHEWABLE TABLETS PO SCH ×2 (10:30→22:48)
[2021-03-02] MEDS: BICTEGRAV/EMTRICIT/TENOFOV (BIKTARVY) 50-200-25 MG TABLET PO SCH (10:31)
[2021-03-02] MEDS: SENNOSIDES/DOCUSATE COMBO (SENNA PLUS) TABLET (UD) PO SCH ×2 (10:31→22:48)
[2021-03-02] MEDS: PANTOPRAZOLE 40 MG TABLET PO SCH (10:31)
[2021-03-02] MEDS: amLODIPine BESYLATE 5 MG TABLET (FP) PO SCH (10:31)
[2021-03-02] MEDS: CELECOXIB 200 MG CAPSULE PO SCH ×2 (10:31→22:49)
[2021-03-02] MEDS: diazePAM 5 MG TABLET PO PRN ×2 (10:32→22:57)
[2021-03-02] MEDS: MUPIROCIN 2% TOPICAL OINTMENT FOR DECOLONIZATION NS SCH ×2 (10:33→22:49)
[2021-03-02] MEDS ORDERED: PCA PUMP NR ONE ×2 (11:14→11:25)
[2021-03-02] MEDS ORDERED: oxyCODONE HCL 5 MG TABLET PO PRN ×6 (11:24→13:57)
[2021-03-02] MEDS ORDERED: oxyCODONE HCL 5 MG TABLET PO ONE (14:00)
[2021-03-02] MEDS: oxyCODONE HCL 5 MG TABLET PO PRN (19:38)
[2021-03-02] MEDS: ATORVASTATIN CA 10 MG TABLET (FP) PO SCH (22:48)
[2021-03-02] MEDS: ZOLPIDEM TARTRATE 5 MG TABLET PO PRN (22:48)
[2021-03-02] MEDS: CHLORHEXIDINE GLUCONATE 4% CLEANSER FOR DECOLONIZATION TP SCH (22:49)
[2021-03-03] MEDS: oxyCODONE HCL 5 MG TABLET PO PRN ×4 (01:49→19:03)
[2021-03-03] MEDS: MAGNESIUM HYDROX 2400MG/30ML ORAL SUSPENSION 30 ML CUP PO PRN (01:49)
[2021-03-03] MEDS: ALBUTEROL SO4 HFA INHALER IH PRN ×2 (02:17→21:20)
[2021-03-03] MEDS ORDERED: PT OWN MED DRAWER 7, Y5N ONE (10:52)
[2021-03-03 11:01] LABS: HEMATOCRIT 21.2 % (32.4-45.2); MCH 32.9 pg (25.7-33.7); MCHC 33.1 g/dl (32.0-36.0); MEAN CELL VOLUME 99.3 fl (80-96); MEAN PLT VOLUME 7.5 fl (7.5-11.1); PLATELET COUNT 250 10^3/uL (134-434); RBC 2.14 M/mm3 (3.60-5.2); RDW 15.4 % (11.6-15.6); WHITE BLOOD COUNT 7.1 K/mm3 (4.0-10.0)
[2021-03-03] MEDS: ASPIRIN 81 MG CHEWABLE TABLETS PO SCH ×2 (11:02→21:21)
[2021-03-03] MEDS: PANTOPRAZOLE 40 MG TABLET PO SCH (11:02)
[2021-03-03] MEDS: amLODIPine BESYLATE 5 MG TABLET (FP) PO SCH (11:03)
[2021-03-03] MEDS: SENNOSIDES/DOCUSATE COMBO (SENNA PLUS) TABLET (UD) PO SCH ×2 (11:03→21:20)
[2021-03-03] MEDS: BICTEGRAV/EMTRICIT/TENOFOV (BIKTARVY) 50-200-25 MG TABLET PO SCH (11:03)
[2021-03-03] MEDS: CELECOXIB 200 MG CAPSULE PO SCH ×2 (11:03→21:20)
[2021-03-03 11:20] LABS: BLOOD UREA NITROGEN 9.9 mg/dL (7-18); CALCIUM 7.4 mg/dL (8.5-10.1)
[2021-03-03 11:21] LABS: ALBUMIN 1.4 g/dl (3.4-5.0); MAGNESIUM 2.1 mg/dL (1.8-2.4)
[2021-03-03 11:23] LABS: CREATININE 0.7 mg/dL (0.55-1.3)
[2021-03-03 11:24] LABS: BILIRUBIN,TOTAL 0.4 mg/dL (0.2-1); TOT PROT 5.2 g/dl (6.4-8.2)
[2021-03-03 12:10] LABS: ANISOCYTOSIS 1+; MACROCYTOSIS 0; PLATELET ESTIMATE NORMAL
[2021-03-03] MEDS ORDERED: ONDANSETRON 8 MG TABLET (FP) PO PRN (16:32)
[2021-03-03] MEDS: ZOLPIDEM TARTRATE 5 MG TABLET PO PRN (21:21)
[2021-03-03] MEDS: ATORVASTATIN CA 10 MG TABLET (FP) PO SCH (21:21)
[2021-03-03] MEDS: diazePAM 5 MG TABLET PO PRN (21:23)
[2021-03-04] MEDS ORDERED: MELATONIN 5 MG TABLETS PO ONE (00:22)
[2021-03-04] MEDS: oxyCODONE HCL 5 MG TABLET PO PRN ×4 (01:23→19:06)
[2021-03-04] MEDS ORDERED: ACETAMINOPHEN 325 MG TABLET (FP) PO ONE (06:10)
[2021-03-04 09:15] LABS: HEMATOCRIT 23.2 % (32.4-45.2); HEMOGLOBIN 7.9 GM/dL (10.7-15.3); MCH 33.8 pg (25.7-33.7); MCHC 34.1 g/dl (32.0-36.0); MEAN CELL VOLUME 99.1 fl (80-96); MEAN PLT VOLUME 7.2 fl (7.5-11.1); PLATELET COUNT 307 10^3/uL (134-434); RBC 2.34 M/mm3 (3.60-5.2); RDW 15.1 % (11.6-15.6); WHITE BLOOD COUNT 7.2 K/mm3 (4.0-10.0)
[2021-03-04] MEDS ORDERED: PT OWN MED DRAWER 7, Y5N ONE ×3 (10:03→21:40)
[2021-03-04 10:08] LABS: CALCIUM 8.1 mg/dL (8.5-10.1); MAGNESIUM 2.2 mg/dL (1.8-2.4)
[2021-03-04 10:10] LABS: ALBUMIN 1.5 g/dl (3.4-5.0)
[2021-03-04 10:11] LABS: CREATININE 0.8 mg/dL (0.55-1.3)
[2021-03-04 10:12] LABS: BILIRUBIN,TOTAL 0.3 mg/dL (0.2-1); TOT PROT 5.6 g/dl (6.4-8.2)
[2021-03-04 10:20] LABS: BLOOD UREA NITROGEN 8.3 mg/dL (7-18)
[2021-03-04] MEDS: PANTOPRAZOLE 40 MG TABLET PO SCH (10:22)
[2021-03-04] MEDS: amLODIPine BESYLATE 5 MG TABLET (FP) PO SCH (10:22)
[2021-03-04] MEDS: ASPIRIN 81 MG CHEWABLE TABLETS PO SCH ×2 (10:22→21:17)
[2021-03-04] MEDS: MAGNESIUM HYDROX 2400MG/30ML ORAL SUSPENSION 30 ML CUP PO PRN ×2 (10:22→21:27)
[2021-03-04] MEDS: CELECOXIB 200 MG CAPSULE PO SCH ×2 (10:23→21:41)
[2021-03-04] MEDS: BICTEGRAV/EMTRICIT/TENOFOV (BIKTARVY) 50-200-25 MG TABLET PO SCH (10:23)
[2021-03-04] MEDS: SENNOSIDES/DOCUSATE COMBO (SENNA PLUS) TABLET (UD) PO SCH ×2 (10:23→21:17)
[2021-03-04] MEDS: GABAPENTIN 100 MG CAPSULE PO SCH ×2 (13:11→21:17)
[2021-03-04] MEDS: ACETAMINOPHEN 325 MG TABLET (FP) PO SCH ×2 (13:12→17:58)
[2021-03-04] MEDS: ATORVASTATIN CA 10 MG TABLET (FP) PO SCH (21:17)
[2021-03-04] MEDS: ZOLPIDEM TARTRATE 5 MG TABLET PO PRN (21:25)
[2021-03-04] MEDS: diazePAM 5 MG TABLET PO PRN (21:26)
[2021-03-05] MEDS: ACETAMINOPHEN 325 MG TABLET (FP) PO SCH ×5 (00:57→23:50)
[2021-03-05] MEDS: oxyCODONE HCL 5 MG TABLET PO PRN ×4 (01:24→19:32)
[2021-03-05] MEDS: GABAPENTIN 100 MG CAPSULE PO SCH ×3 (06:54→21:22)
[2021-03-05] MEDS ORDERED: PT OWN MED DRAWER 7, Y5N ONE ×2 (09:02→21:08)
[2021-03-05] MEDS: BICTEGRAV/EMTRICIT/TENOFOV (BIKTARVY) 50-200-25 MG TABLET PO SCH (10:00)
[2021-03-05] MEDS: ASPIRIN 81 MG CHEWABLE TABLETS PO SCH ×2 (10:00→21:22)
[2021-03-05] MEDS: SENNOSIDES/DOCUSATE COMBO (SENNA PLUS) TABLET (UD) PO SCH ×2 (10:01→21:23)
[2021-03-05] MEDS: amLODIPine BESYLATE 5 MG TABLET (FP) PO SCH (10:01)
[2021-03-05] MEDS: CELECOXIB 200 MG CAPSULE PO SCH ×2 (10:01→21:22)
[2021-03-05] MEDS: PANTOPRAZOLE 40 MG TABLET PO SCH (10:02)
[2021-03-05 11:28] LABS: HEMATOCRIT 22.8 % (32.4-45.2); HEMOGLOBIN 7.6 GM/dL (10.7-15.3); MCH 32.7 pg (25.7-33.7); MCHC 33.2 g/dl (32.0-36.0); MEAN CELL VOLUME 98.5 fl (80-96); MEAN PLT VOLUME 7.1 fl (7.5-11.1); PLATELET COUNT 351 10^3/uL (134-434); RBC 2.32 M/mm3 (3.60-5.2); RDW 15.7 % (11.6-15.6); WHITE BLOOD COUNT 7.1 K/mm3 (4.0-10.0)
[2021-03-05 11:45] LABS: ALBUMIN 1.6 g/dl (3.4-5.0); BLOOD UREA NITROGEN 12.2 mg/dL (7-18); CALCIUM 7.6 mg/dL (8.5-10.1); MAGNESIUM 2.3 mg/dL (1.8-2.4)
[2021-03-05 11:48] LABS: CREATININE 0.8 mg/dL (0.55-1.3)
[2021-03-05 11:50] LABS: BILIRUBIN,TOTAL 0.2 mg/dL (0.2-1); TOT PROT 5.6 g/dl (6.4-8.2)
[2021-03-05 12:16] LABS: ANISOCYTOSIS 1+; MACROCYTOSIS 0; PLATELET ESTIMATE NORMAL
[2021-03-05] MEDS: ZOLPIDEM TARTRATE 5 MG TABLET PO PRN (21:22)
[2021-03-05] MEDS: ATORVASTATIN CA 10 MG TABLET (FP) PO SCH (21:22)
[2021-03-05] MEDS: diazePAM 5 MG TABLET PO PRN (23:50)
[2021-03-06] MEDS: GABAPENTIN 100 MG CAPSULE PO SCH ×3 (05:47→21:55)
[2021-03-06] MEDS: ACETAMINOPHEN 325 MG TABLET (FP) PO SCH ×3 (05:47→18:58)
[2021-03-06 07:47] LABS: BASO % 0.4 % (0-2.0); EOS % 5.1 % (0-4.5); HEMOGLOBIN 7.7 GM/dL (10.7-15.3); LYMPH % 21.3 % (8-40); MCH 33.2 pg (25.7-33.7); MCHC 33.2 g/dl (32.0-36.0); MEAN CELL VOLUME 99.9 fl (80-96); MEAN PLT VOLUME 7.3 fl (7.5-11.1); MONO % 5.6 % (3.8-10.2); NEUT % 67.6 % (42.8-82.8); PLATELET COUNT 352 10^3/uL (134-434); RBC 2.31 M/mm3 (3.60-5.2); RDW 15.9 % (11.6-15.6); WHITE BLOOD COUNT 6.5 K/mm3 (4.0-10.0)
[2021-03-06 08:14] LABS: ALBUMIN 1.4 g/dl (3.4-5.0); BLOOD UREA NITROGEN 12.2 mg/dL (7-18); CALCIUM 7.9 mg/dL (8.5-10.1); MAGNESIUM 2.3 mg/dL (1.8-2.4)
[2021-03-06 08:17] LABS: CREATININE 0.8 mg/dL (0.55-1.3)
[2021-03-06 08:18] LABS: BILIRUBIN,TOTAL 0.2 mg/dL (0.2-1); TOT PROT 5.4 g/dl (6.4-8.2)
[2021-03-06] MEDS ORDERED: PT OWN MED DRAWER 7, Y5N ONE ×2 (09:55→21:18)
[2021-03-06] MEDS: ASPIRIN 81 MG CHEWABLE TABLETS PO SCH ×2 (09:58→21:55)
[2021-03-06] MEDS: CELECOXIB 200 MG CAPSULE PO SCH ×2 (09:58→21:55)
[2021-03-06] MEDS: amLODIPine BESYLATE 5 MG TABLET (FP) PO SCH (09:58)
[2021-03-06] MEDS: PANTOPRAZOLE 40 MG TABLET PO SCH (09:58)
[2021-03-06] MEDS: BICTEGRAV/EMTRICIT/TENOFOV (BIKTARVY) 50-200-25 MG TABLET PO SCH (09:58)
[2021-03-06] MEDS: SENNOSIDES/DOCUSATE COMBO (SENNA PLUS) TABLET (UD) PO SCH ×2 (09:59→21:55)
[2021-03-06] MEDS: oxyCODONE HCL 5 MG TABLET PO PRN ×3 (11:38→23:50)
[2021-03-06 15:08] VITALS: BP 108/59; PULSE 84; TEMP 98.1
[2021-03-06] MEDS: diazePAM 5 MG TABLET PO PRN (21:55)
[2021-03-06] MEDS: ATORVASTATIN CA 10 MG TABLET (FP) PO SCH (21:55)
[2021-03-07] MEDS: ACETAMINOPHEN 325 MG TABLET (FP) PO SCH (01:11)
== END 2021-03-07 06:26 | DRG 462 ==
LOC: J2C 02-25 04:14 → JICU 02-25 22:26 → J8W 03-02 20:45
PROVIDERS: ADMIT Orthopaedic Surgery Orthopaedic Surgery of the Spine; ATTEND Internal Medicine
PROC: 0SPU0JZ Removal of Synthetic Substitute from Left Knee Joint, Femoral Surface, Open Approach (ICD-10-PCS; 2021-02-25)
PROC: 0SRS0JA Replacement of Left Hip Joint, Femoral Surface with Synthetic Substitute, Uncemented, Open Approach (ICD-10-PCS; principal; 2021-02-25 10:30)
PROC: 0SR Lower Joints, Replacement (ICD-10-PCS; 2021-02-25 10:30)
DX: T84.89XA Other specified complication of internal orthopedic prosthetic devices, implants and grafts, initial encounter (principal); Z68.41 Body mass index [BMI] 40.0-44.9, adult; M17.11 Unilateral primary osteoarthritis, right knee; Z21 Asymptomatic human immunodeficiency virus [HIV] infection status; J44.9 Chronic obstructive pulmonary disease, unspecified; F17.210 Nicotine dependence, cigarettes, uncomplicated; E66.01 Morbid (severe) obesity due to excess calories; I10 Essential (primary) hypertension; E78.5 Hyperlipidemia, unspecified; Y83.9 Surgical procedure, unspecified as the cause of abnormal reaction of the patient, or of later complication, without mention of misadventure at the time of the procedure; J45.909 Unspecified asthma, uncomplicated; D72.829 Elevated white blood cell count, unspecified
CPT/HCPCS: 36415; 73110-TC-LT-FY; 73130-TC-LT-FY; 73502-TC-LT-FY; 80048; 80053; 82272; 83735; 84100; 85025; 85027; 86359; 86360; 86850; 86900; 86901; 86922; 87389; 88302-TC; 88304-TC; 88305-TC; 88311-TC; 94760; 97010-GP; 97116-GP; 97162-GP; C9803; J0131; J1644; U0003; U0005